=== PATIENT | female | born 1965 | race Caucasian/White ===

== ENCOUNTER 2016-04-19 09:39 | Emergency (ER) | payer OTHER ==
[~2016-04-19 09:39] MED LIST: /ESOM40CA PO; /HYDR10T PO; /LAMO20TA PO; ABIL5TAB; ALLE25CA OR; ALPR0.5T3 PO; ASEN5TA SL; ASPI325T10 PO; AUGM875T27 PO; BENA25CA2 PO; BENA25TA4 PO; DEPAKOT500 PO; FLECTOR1.3 TOP; GEOD40CA OR; IBUP400T OR; IBUP800T23 PO; IMIT100T OR; LAMI200T3 PO; METR500T10 PO; PAXIL40 PO; PERC5TAB6 PO; PROZ10CA7 PO; PROZ20CA; SAPH1SUB12 SL; TRAM50TA2 OR; TRAZ50TA2 PO; TRAZO50TA PO; TYLE500T53 OR; XANA0.5T PO; ZYPREXA PO; klonopin PO; saphris SL
--- NOTE | 2016-04-19 10:21 | EDDOCDS ---
Physician Documentation [facility] Name: Adela Polo Age: 50 yrs Sex: Female : 1965 Arrival Date: 04/19/2016 Time: 09:39 Bed Triage 1 Private MD: Margarette Palumbo Disposition: 04/19/16 10:03 Discharged to Home/Self Care. Impression: Dental caries. - Condition is Stable. - Discharge Instructions: Dental Pain. - Prescriptions for Clindamycin HCl 300 mg Oral Capsule - take 1 capsule by ORAL route every 6 hours; 40 capsule. - Medication Reconciliation, Local Pharmacy Hours form. - Follow up: Your, Dentist; When: Call to arrange an appointment; Reason: Further diagnostic work-up, Recheck today's complaints, Continuance of care. - Problem is chronic. - Symptoms are unchanged. Historical: - Allergies: Abilify (numbness); Floxin (Rash); hydroxyzine HCl; Risperdal (racing heart); Seroquel (racing heart); Trileptal (Rash); - Home Meds: 1. Lamictal 200 mg Oral tab 1 tab once daily 2. saphris 10 mg twice a day 3. Xanax 0.25 mg Oral tab 1 tab twice a day - PMHx: Borderline Personality Disorder; DJD; Schizo-Affective Disorder; - PSHx: Colon Resection; Tubal ligation; D & C; - Social history: Smoking status: Patient uses tobacco products, heavy tobacco smoker. No barriers to communication noted, The patient speaks fluent Chinese, Speaks appropriately for age. - Family history: Not pertinent. - : The pt / caregiver states he / she is not on anticoagulants. Home medication list is obtained from the patient. - Exposure Risk Screening:: None identified. 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 8 in. (172.72 cm); Pain 5/10; 09:41 Body Mass Index 44.70 (133.36 kg, 172.72 cm) sew Signatures: Kristopher Shepherd RN RN mlb1 Art Howard PA PA btw Kianna Dutton, RN RN hs1 MTDD
--- NOTE | 2016-04-19 10:21 | EDDOCDS ---
Nurse's Notes [facility] Name: Adela Polo Age: 50 yrs Sex: Female : 1965 Arrival Date: 04/19/2016 Time: 09:39 Bed Triage 1 Private MD: Margarette Palumbo Diagnosis: Dental caries Presentation: 04/19 09:47 Presenting complaint: Patient states: patient states infected teeth and couple of them hs1 hurting badly. Left side of jaw. Patient states cannot get into dentist for 1 month and is looking for antibiotics so that patient can get through. Adult Sepsis Screening: The patient does not have new or worsening altered mentation. Patient's respiratory rate is less than 22. Systolic blood pressure is greater than 100. Patient has a qSOFA score of 0- Negative Sepsis Screen. Suicide/Homicide risk assessment- the patient denies having any suicidal and/or homicidal ideations and does not present with any other emotional, behavioral or mental health complaints. Status: Patient is not a radiology equipment servicer or dependent. Transition of care: patient was not received from another setting of care. 09:47 Acuity: ASHKAN Level 5 hs1 09:47 Method Of Arrival: Walkin/Carried/Asstd hs1 Triage Assessment: 09:49 General: Appears in no apparent distress, Behavior is appropriate for age, cooperative. hs1 Pain: Location: mouth Pain currently is 5 out of 10 on a pain scale. HIV screening NA for this visit Offered previously. EENT: Reports pain in gums. 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 Lamictal 200 mg Oral tab 1 tab once daily 2. saphris 10 mg twice a day 3. Xanax 0.25 mg Oral tab 1 tab twice a day - PMHx: Borderline Personality Disorder; DJD; Schizo-Affective Disorder; - PSHx: Colon Resection; Tubal ligation; D & C; - Social history: Smoking status: Patient uses tobacco products, heavy tobacco smoker. No barriers to communication noted, The patient speaks fluent Irish, Speaks appropriately for age. - Family history: Not pertinent. - : The pt / caregiver states he / she is not on anticoagulants. Home medication list is obtained from the patient. - Exposure Risk Screening:: None identified. Screenin:50 Screening information is obtained from the patient. Fall risk: No risks identified. mlb1 Assistance ADL's: requires no assistance with activities of daily living. Abuse/DV Screen: The patient / caregiver reports he/she is: not in a situation that causes fear, pain or injury. Nutritional screening: No deficits noted. Advance Directives: Currently, there is no health care proxy. home support is adequate. Assessment: 10:14 General: Appears in no apparent distress, comfortable, Behavior is appropriate for age, mlb1 cooperative. Pain: Location: mouth Pain currently is 5 out of 10 on a pain scale. Neurological: No deficits noted. Respiratory: No deficits noted. Vital Signs: 09:41 BP 164 / 88; Pulse 84; Resp 16; Temp 98.2(T); Pulse Ox 98% on R/A; Weight 133.36 kg; sew Height 5 ft. 8 in. (172.72 cm); Pain 5/10; 09:41 Body Mass Index 44.70 (133.36 kg, 172.72 cm) [facility] [place]: 09:41 Log In Time: April 19, 2016 at 09:37. [facility] [place] Course: 09:41 Patient visited by Mine Joshi. sew 09:41 Margarette Palumbo is Private Physician. sew 09:41 Patient moved to Waiting sew 09:42 Patient visited by Mine Joshi. sew 09:42 Patient moved to Pre RCE sew 09:48 Triage Initiated hs1 09:49 Patient moved to Triage 1 hs1 09:53 Art Howard PA is PHCP. btw 09:54 Mine Solares MD is Attending Physician. btw 09:54 Patient visited by Art Howard PA. btw 10:02 YourJoyt is Referral Physician. btw 10:07 The patient / caregiver is instructed regarding the plan of care and ED course. mlb1 10:07 No IV's were initiated during this patient's visit. No procedures done that require mlb1 assistance. Order Results: There are currently no results for this order. Outcome: 10:03 Discharge ordered by Provider. btw 10:15 Discharge Assessment: Patient awake, alert and oriented x 3. No cognitive and/or mlb1 functional deficits noted. Patient verbalized understanding of disposition instructions. patient administered narcotics - no. The following High Risk Discharge criteria are identified: None. Discharged to home ambulatory. Condition: good. Discharge instructions given to patient, Instructed on discharge instructions, follow up and referral plans. medication usage, Demonstrated understanding of instructions, medications, Pt was receptive of discharge instructions/ teaching. Prescriptions given X 1. No special radiology studies were completed. Property sent home with patient. 10:20 Patient left the ED. mlb1 Signatures: Kristopher Shepherd, RN RN mlb1 Art Howard PA PA btw Kianna Dutton, RN RN hs1 Mine Joshi MTDD
--- NOTE | 2016-04-21 11:21 | EDDOCDS ---
Physician Documentation [facility] Name: Adela Polo Age: 50 yrs Sex: Female : 1965 Arrival Date: 04/19/2016 Time: 09:39 Bed Triage 1 Private MD: Margarette Palumbo Disposition: 04/19/16 10:03 Discharged to Home/Self Care. Impression: Dental caries. - Condition is Stable. - Discharge Instructions: Dental Pain. - Prescriptions for Clindamycin HCl 300 mg Oral Capsule - take 1 capsule by ORAL route every 6 hours; 40 capsule. - Medication Reconciliation, Local Pharmacy Hours form. - Follow up: Your, Dentist; When: Call to arrange an appointment; Reason: Further diagnostic work-up, Recheck today's complaints, Continuance of care. - Problem is chronic. - Symptoms are unchanged. Historical: - Allergies: Abilify (numbness); Floxin (Rash); hydroxyzine HCl; Risperdal (racing heart); Seroquel (racing heart); Trileptal (Rash); - Home Meds: 1. Lamictal 200 mg Oral tab 1 tab once daily 2. saphris 10 mg twice a day 3. Xanax 0.25 mg Oral tab 1 tab twice a day - PMHx: Borderline Personality Disorder; DJD; Schizo-Affective Disorder; - PSHx: Colon Resection; Tubal ligation; D & C; - Social history: Smoking status: Patient uses tobacco products, heavy tobacco smoker. No barriers to communication noted, The patient speaks fluent Haitian, Speaks appropriately for age. - Family history: Not pertinent. - : The pt / caregiver states he / she is not on anticoagulants. Home medication list is obtained from the patient. - Exposure Risk Screening:: None identified. 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 8 in. (172.72 cm); Pain 5/10; 09:41 Body Mass Index 44.70 (133.36 kg, 172.72 cm) sew MDM: 10:21 [facility] Payment Agreement was scanned into [employer] and attached to record. jp5 10:21 Financial registration complete. jp5 13:32 T-Sheet-- Draft Copy was scanned into [employer] and attached to record. gb Signatures: Roma Latwon, Reg Reg gb Kristopher Shepherd, RN RN mlb1 Art Howard PA PA btw Kianna Dutton RN RN hs1 Avis Dominguez jp5 The chart was reviewed and I authenticate all verbal orders and agree with the evaluation and treatment provided.Attachments: 10:21 [facility] Payment Agreement jp5 13:32 T-Sheet-- Draft Copy gb Chart Complete MTDD
--- NOTE | 2016-04-21 11:21 | EDDOCDS ---
Physician Documentation [facility] Name: Adela Polo Age: 50 yrs Sex: Female : 1965 Arrival Date: 04/19/2016 Time: 09:39 Bed Triage 1 Private MD: Margarette Palumbo Disposition: 04/19/16 10:03 Discharged to Home/Self Care. Impression: Dental caries. - Condition is Stable. - Discharge Instructions: Dental Pain. - Prescriptions for Clindamycin HCl 300 mg Oral Capsule - take 1 capsule by ORAL route every 6 hours; 40 capsule. - Medication Reconciliation, Local Pharmacy Hours form. - Follow up: Your, Dentist; When: Call to arrange an appointment; Reason: Further diagnostic work-up, Recheck today's complaints, Continuance of care. - Problem is chronic. - Symptoms are unchanged. Historical: - Allergies: Abilify (numbness); Floxin (Rash); hydroxyzine HCl; Risperdal (racing heart); Seroquel (racing heart); Trileptal (Rash); - Home Meds: 1. Lamictal 200 mg Oral tab 1 tab once daily 2. saphris 10 mg twice a day 3. Xanax 0.25 mg Oral tab 1 tab twice a day - PMHx: Borderline Personality Disorder; DJD; Schizo-Affective Disorder; - PSHx: Colon Resection; Tubal ligation; D & C; - Social history: Smoking status: Patient uses tobacco products, heavy tobacco smoker. No barriers to communication noted, The patient speaks fluent Mauritian, Speaks appropriately for age. - Family history: Not pertinent. - : The pt / caregiver states he / she is not on anticoagulants. Home medication list is obtained from the patient. - Exposure Risk Screening:: None identified. 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 8 in. (172.72 cm); Pain 5/10; 09:41 Body Mass Index 44.70 (133.36 kg, 172.72 cm) sew MDM: 10:21 [facility] Payment Agreement was scanned into [employer] and attached to record. jp5 10:21 Financial registration complete. jp5 13:32 T-Sheet-- Draft Copy was scanned into [employer] and attached to record. gb Signatures: Roma Lawton, Reg Reg gb Kristopher Shepherd, RN RN mlb1 Art Howard PA PA btw Kianna Dutton RN RN hs1 Avis Dominguez jp5 The chart was reviewed and I authenticate all verbal orders and agree with the evaluation and treatment provided.Attachments: 10:21 [facility] Payment Agreement jp5 13:32 T-Sheet-- Draft Copy gb Chart Complete MTDD
--- NOTE | 2016-04-21 11:21 | EDDOCDS ---
Nurse's Notes [facility] Name: Adela Polo Age: 50 yrs Sex: Female : 1965 Arrival Date: 04/19/2016 Time: 09:39 Bed Triage 1 Private MD: Margarette Palumbo Diagnosis: Dental caries Presentation: 04/19 09:47 Presenting complaint: Patient states: patient states infected teeth and couple of them hs1 hurting badly. Left side of jaw. Patient states cannot get into dentist for 1 month and is looking for antibiotics so that patient can get through. Adult Sepsis Screening: The patient does not have new or worsening altered mentation. Patient's respiratory rate is less than 22. Systolic blood pressure is greater than 100. Patient has a qSOFA score of 0- Negative Sepsis Screen. Suicide/Homicide risk assessment- the patient denies having any suicidal and/or homicidal ideations and does not present with any other emotional, behavioral or mental health complaints. 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 Transition of care: patient was not received from another setting of care. 09:47 Acuity: ASHKAN Level 5 hs1 09:47 Method Of Arrival: Walkin/Carried/Asstd hs1 Triage Assessment: 09:49 General: Appears in no apparent distress, Behavior is appropriate for age, cooperative. hs1 Pain: Location: mouth Pain currently is 5 out of 10 on a pain scale. HIV screening NA for this visit Offered previously. EENT: Reports pain in gums. 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 Lamictal 200 mg Oral tab 1 tab once daily 2. saphris 10 mg twice a day 3. Xanax 0.25 mg Oral tab 1 tab twice a day - PMHx: Borderline Personality Disorder; DJD; Schizo-Affective Disorder; - PSHx: Colon Resection; Tubal ligation; D & C; - Social history: Smoking status: Patient uses tobacco products, heavy tobacco smoker. No barriers to communication noted, The patient speaks fluent Georgian, Speaks appropriately for age. - Family history: Not pertinent. - : The pt / caregiver states he / she is not on anticoagulants. Home medication list is obtained from the patient. - Exposure Risk Screening:: None identified. Screenin:50 Screening information is obtained from the patient. Fall risk: No risks identified. mlb1 Assistance ADL's: requires no assistance with activities of daily living. Abuse/DV Screen: The patient / caregiver reports he/she is: not in a situation that causes fear, pain or injury. Nutritional screening: No deficits noted. Advance Directives: Currently, there is no health care proxy. home support is adequate. Assessment: 10:14 General: Appears in no apparent distress, comfortable, Behavior is appropriate for age, mlb1 cooperative. Pain: Location: mouth Pain currently is 5 out of 10 on a pain scale. Neurological: No deficits noted. Respiratory: No deficits noted. Vital Signs: 09:41 BP 164 / 88; Pulse 84; Resp 16; Temp 98.2(T); Pulse Ox 98% on R/A; Weight 133.36 kg; sew Height 5 ft. 8 in. (172.72 cm); Pain 5/10; 09:41 Body Mass Index 44.70 (133.36 kg, 172.72 cm) [facility] [place] Vitals: 09:41 Log In Time: April 19, 2016 at 09:37. [facility] [place] ED Course: 09:41 Patient visited by Mine Joshi. sew 09:41 Margarette Palumbo is Private Physician. sew 09:41 Patient moved to Waiting sew 09:42 Patient visited by Mine Joshi. sew 09:42 Patient moved to Pre RCE sew 09:48 Triage Initiated hs1 09:49 Patient moved to Triage 1 hs1 09:53 Art Howard PA is PHCP. btw 09:54 Mine Solares MD is Attending Physician. btw 09:54 Patient visited by Art Howard PA. btw 10:02 YourJoyt is Referral Physician. btw 10:07 The patient / caregiver is instructed regarding the plan of care and ED course. mlb1 10:07 No IV's were initiated during this patient's visit. No procedures done that require mlb1 assistance. 10:21 [facility] [place] was scanned into [employer] and attached to record. jp5 13:32 T-Sheet-- Draft Copy was scanned into [employer] and attached to record. Order Results: There are currently no results for this order. Outcome: 10:03 Discharge ordered by Provider. btw 10:15 Discharge Assessment: Patient awake, alert and oriented x 3. No cognitive and/or mlb1 functional deficits noted. Patient verbalized understanding of disposition instructions. patient administered narcotics - no. The following High Risk Discharge criteria are identified: None. Discharged to home ambulatory. Condition: good. Discharge instructions given to patient, Instructed on discharge instructions, follow up and referral plans. medication usage, Demonstrated understanding of instructions, medications, Pt was receptive of discharge instructions/ teaching. Prescriptions given X 1. No special radiology studies were completed. Property sent home with patient. 10:20 Patient left the ED. mlb1 Signatures: Roma Lawton, Reg Reg Kristopher Jacobs RN RN mlb1 Art Howard PA PA btw Kianna Dutton RN RN hs1 Mine Joshi Jennalee jp5 Chart Complete [facility]ITAL[facility]
== END 2016-04-19 10:20 | disposition home or self-care (01) ==
LOC: M ED 09:39
DX: K02.9 Dental caries, unspecified (principal); F60.3 Borderline personality disorder; M19.90 Unspecified osteoarthritis, unspecified site; F25.9 Schizoaffective disorder, unspecified; F17.210 Nicotine dependence, cigarettes, uncomplicated; Z79.899 Other long term (current) drug therapy; Z88.8 Allergy status to other drugs, medicaments and biological substances

== ENCOUNTER 2016-06-04 09:25 | Emergency (ER) | payer OTHER ==
[~2016-06-04] VITALS: Ht 172.7 cm; Wt 127.0 kg
--- NOTE | 2016-06-04 12:02 | REP ---
ABDOMINAL SERIES: Supine and erect views of the abdomen and pelvis demonstrate no free air and no evidence for bowel obstruction. No dilated small bowel loops are seen. There are metallic clips and phleboliths in the pelvis. There are mild degenerative changes of the spine and hips. An accompanying view of the chest demonstrates no acute infiltrate. The heart is normal in size and the mediastinal silhouette is unremarkable. IMPRESSION: Negative abdominal series. Signed by Bj Love MD 06/04/2016 04:15 P
[2016-06-04 12:22] LABS: ALBUMIN 3.6 GM/DL (3.2-5.2); ALBUMIN/GLOBULIN RATIO 0.92 (1.00-1.93); ALKALINE PHOSPHATASE 137 U/L (45-117); ALT/SGPT 21 U/L (12-78); AMYLASE 47 U/L (25-115); ANION GAP 7 MEQ/L (8-16); AST/SGOT 15 U/L (15-37); BILIRUBIN,DIRECT < 0.1 MG/DL (0.0-0.2); BILIRUBIN,TOTAL 0.3 MG/DL (0.2-1.0); BLOOD UREA NITROGEN 11 MG/DL (7-18); CALCIUM LEVEL 9.3 MG/DL (8.5-10.1); CARBON DIOXIDE LEVEL 28 MEQ/L (21-32); CHLORIDE LEVEL 104 MEQ/L (98-107); CREATININE FOR GFR 1.16 MG/DL (0.55-1.02); GLOMERULAR FILTRATION RATE 52.4 (>51); GLUCOSE, FASTING 100 MG/DL (70-105); SODIUM LEVEL 139 MEQ/L (136-145); TOTAL PROTEIN 7.5 GM/DL (6.4-8.2)
[2016-06-04 12:23] LABS: MEAN CORPUSCULAR HEMOGLOBIN 29.9 pg (27.0-33.0); MEAN CORPUSCULAR HGB CONC 32.9 g/dl (32.0-36.5); MEAN CORPUSCULAR VOLUME 90.9 fl (80.0-96.0); PLATELET COUNT, AUTOMATED 359 k/mm3 (150-450); RED CELL DISTRIBUTION WIDTH 13.7 % (11.5-14.5); WHITE BLOOD COUNT 9.3 K/mm3 (4.0-10.0)
[2016-06-04 12:24] LABS: BASO # 0.1 K/mm3 (0.0-0.2); BASO % 0.5 % (0.0-1.0); EOS # 0.2 K/mm3 (0.0-0.50); EOS % 2.2 % (0.0-3.0); LARGE UNSTAINED CELL # 0.3 K/mm3 (0.0-0.4); LARGE UNSTAINED CELL % 2.8 % (0.0-4.0); LYMPH # 2.1 K/mm3 (1.5-4.5); LYMPH % 22.1 % (24.0-44.0); MONO # 0.4 K/mm3 (0.0-0.8); MONO % 4.2 % (0.0-5.0); NEUTROPHILS # 6.3 K/mm3 (1.8-7.7); NEUTROPHILS % 68.1 % (36.0-66.0)
[2016-06-04 12:47] VITALS: BP 151/80
[2016-06-04] MEDS ORDERED: CYCL10TA PO (12:54)
[2016-06-04] MEDS ORDERED: MIRA3350 PO (12:54)
== END 2016-06-04 13:13 | disposition home or self-care (01) ==
LOC: M ED 11:11
DX: K59.00 Constipation, unspecified (principal); S39.012A Strain of muscle, fascia and tendon of lower back, initial encounter; X58.XXXA Exposure to other specified factors, initial encounter; Y92.89 Other specified places as the place of occurrence of the external cause; Y93.89 Activity, other specified; Y99.8 Other external cause status

== ENCOUNTER 2016-06-21 10:49 | Emergency (ER) | payer OTHER ==
[~2016-06-21] VITALS: Ht 172.7 cm; Wt 122.9 kg
[~2016-06-21 10:49] MED LIST changes: +CYCL10TA PO; +MIRA3350 PO
[2016-06-21] MEDS ORDERED: ESTR1TAB EC (11:07)
[2016-06-21] MEDS ORDERED: GASTROGRAFIN SOLUTION 30ML (Q9963) As Ordered ONE (12:39)
[2016-06-21] MEDS ORDERED: GASTROGRAFIN SOLUTION 30ML (Q9963) PO ONE ×2 (12:45→13:15)
[2016-06-21 12:46] LABS: CONTROL LINE UCG INT CTR LINE PRESENT
[2016-06-21 12:58] LABS: BASO % 0.5 % (0.0-1.0); EOS # 0.2 K/mm3 (0.0-0.50); EOS % 1.6 % (0.0-3.0); LARGE UNSTAINED CELL # 0.2 K/mm3 (0.0-0.4); LARGE UNSTAINED CELL % 1.4 % (0.0-4.0); LYMPH # 2.4 K/mm3 (1.5-4.5); LYMPH % 22.9 % (24.0-44.0); MEAN CORPUSCULAR HEMOGLOBIN 29.3 pg (27.0-33.0); MEAN CORPUSCULAR HGB CONC 32.4 g/dl (32.0-36.5); MEAN CORPUSCULAR VOLUME 90.3 fl (80.0-96.0); MONO # 0.4 K/mm3 (0.0-0.8); MONO % 4.2 % (0.0-5.0); NEUTROPHILS # 7.2 K/mm3 (1.8-7.7); NEUTROPHILS % 69.4 % (36.0-66.0); PLATELET COUNT, AUTOMATED 376 k/mm3 (150-450); RED CELL DISTRIBUTION WIDTH 13.5 % (11.5-14.5); WHITE BLOOD COUNT 10.4 K/mm3 (4.0-10.0)
[2016-06-21 13:25] LABS: ALBUMIN 3.6 GM/DL (3.2-5.2); ALKALINE PHOSPHATASE 134 U/L (45-117); ALT/SGPT 26 U/L (12-78); ANION GAP 8 MEQ/L (8-16); AST/SGOT 9 U/L (15-37); BILIRUBIN,DIRECT < 0.1 MG/DL (0.0-0.2); BILIRUBIN,TOTAL 0.2 MG/DL (0.2-1.0); BLOOD UREA NITROGEN 16 MG/DL (7-18); CALCIUM LEVEL 9.1 MG/DL (8.5-10.1); CARBON DIOXIDE LEVEL 25 MEQ/L (21-32); CHLORIDE LEVEL 106 MEQ/L (98-107); CREATININE FOR GFR 1.13 MG/DL (0.55-1.02); GLUCOSE, FASTING 103 MG/DL (70-105); POTASSIUM SERUM 4.2 MEQ/L (3.5-5.1); SODIUM LEVEL 139 MEQ/L (136-145); TOTAL PROTEIN 7.2 GM/DL (6.4-8.2)
[2016-06-21] MEDS ORDERED: ISOVUE-370 76% 100ML VIAL (Q9967) As Ordered ONE (14:29)
--- NOTE | 2016-06-21 15:11 | REP ---
Clinical: Acute generalized abdominal pain. Technique: Axial contrast enhanced images from the lung bases to the pubic symphysis using oral and 100 ml Isovue 370 intravenous contrast material with coronal and sagittal re-formations. Comparison: 06/03/2015. Findings: Liver, spleen, pancreas, gallbladder, bilateral adrenal glands and kidneys are normal / stable. 3.5 cm right renal cyst is again identified and unchanged. Eventration of the rectus sheath has become more pronounced than prior examination and there is a small actual fat containing herniation along the superior margin of the eventration measuring roughly 5 cm (image 69). The enteric system is without obstruction or acute inflammatory process. Scattered colonic diverticula noted without acute diverticulitis. Pelvis demonstrates partially collapsed normal bladder and age-appropriate uterus/adnexa. No ascites. No adenopathy. No free air. Abdominal aorta and vasculature without aneurysm. Skeletal structures demonstrate degenerative changes without focal osseous abnormality. Lung bases clear. Impression: 1. Worsening eventration along the anterior abdominal wall new small actual fat containing ventral hernia. 2. Colonic diverticula without acute diverticulitis. 3. Stable 3.5 cm right renal cyst. 4. No free fluid and no further acute intra-abdominal or pelvic pathology appreciated. Signed by Christophe Corbin MD 06/21/2016 03:02 P
[2016-06-21 15:58] VITALS: BP 120/67
--- NOTE | 2016-06-22 13:08 | ED PDOC ---
Post-Departure Follow-Up radiology report faxed to Mine Delacruz MD Jun 22, 2016 13:08
== END 2016-06-21 16:01 | disposition home or self-care (01) ==
LOC: M ED 13:07
DX: R10.9 Unspecified abdominal pain (principal); K43.9 Ventral hernia without obstruction or gangrene; N28.1 Cyst of kidney, acquired; F25.9 Schizoaffective disorder, unspecified; D25.9 Leiomyoma of uterus, unspecified; M43.00 Spondylolysis, site unspecified; Z88.8 Allergy status to other drugs, medicaments and biological substances; Z79.899 Other long term (current) drug therapy; M54.30 Sciatica, unspecified side; F31.9 Bipolar disorder, unspecified; F60.3 Borderline personality disorder
CPT/HCPCS: 36415; 74177; 80048; 80076; 81001; 83690; 84703; 85025; 87086; 87210; 87491; 87591; 99283; Q9963; Q9967

== ENCOUNTER 2016-07-16 13:40 | Emergency (ER) | payer OTHER ==
[~2016-07-16] VITALS: Ht 172.7 cm; Wt 126.6 kg
[~2016-07-16 13:40] MED LIST changes: +ESTR1TAB EC
[2016-07-16] MEDS ORDERED: DICL75TA PO (15:40)
[2016-07-16] MEDS ORDERED: CYCL10TA PO (15:41)
[2016-07-16 15:54] VITALS: BP 123/59
== END 2016-07-16 15:56 | disposition home or self-care (01) ==
LOC: M ED 15:48
DX: M54.31 Sciatica, right side (principal); F17.200 Nicotine dependence, unspecified, uncomplicated; Z90.49 Acquired absence of other specified parts of digestive tract; R51 Headache; R56.9 Unspecified convulsions; E78.00 Pure hypercholesterolemia, unspecified; I10 Essential (primary) hypertension; K57.92 Diverticulitis of intestine, part unspecified, without perforation or abscess without bleeding; N73.9 Female pelvic inflammatory disease, unspecified; F41.9 Anxiety disorder, unspecified; F31.9 Bipolar disorder, unspecified; F60.3 Borderline personality disorder; Z79.899 Other long term (current) drug therapy; Z88.8 Allergy status to other drugs, medicaments and biological substances; Z88.5 Allergy status to narcotic agent; Z88.1 Allergy status to other antibiotic agents

== ENCOUNTER 2016-07-28 21:16 | Emergency (ER) | payer OTHER ==
[~2016-07-28] VITALS: Ht 172.7 cm; Wt 126.6 kg
[~2016-07-28 21:16] MED LIST changes: +DICL75TA PO
[2016-07-28 22:58] VITALS: BP 159/71
== END 2016-07-28 22:59 | disposition home or self-care (01) ==
LOC: M ED 22:54
DX: S09.90XA Unspecified injury of head, initial encounter (principal); Y04.0XXA Assault by unarmed brawl or fight, initial encounter; Y93.89 Activity, other specified; Y99.8 Other external cause status; M54.30 Sciatica, unspecified side; M19.90 Unspecified osteoarthritis, unspecified site; M51.9 Unspecified thoracic, thoracolumbar and lumbosacral intervertebral disc disorder; Z88.8 Allergy status to other drugs, medicaments and biological substances; Z88.1 Allergy status to other antibiotic agents; Z79.899 Other long term (current) drug therapy; Y92.009 Unspecified place in unspecified non-institutional (private) residence as the place of occurrence of the external cause

== ENCOUNTER 2016-08-08 16:57 | Emergency (ER) | payer OTHER ==
[~2016-08-08] VITALS: Ht 172.7 cm; Wt 126.6 kg
[2016-08-08 16:58] VITALS: BP 137/70
[2016-08-08] MEDS ORDERED: CLIN1GEL22 (17:20)
[2016-08-08] MEDS ORDERED: GI COCKTAIL 50ML BTL(HYOSCYAMINE/MAALOX/LIDOCAINE VISCOUS)(1:3:1) PO ONE (17:45)
[2016-08-08] MEDS ORDERED: BENT20TA PO (17:51)
--- NOTE | 2016-08-08 19:33 | REP ---
ABDOMINAL SERIES: REASON: Pain. COMPARISON: 06/04/2016. FINDINGS: Supine and upright views of the abdomen show the intestinal gas pattern to be nonspecific. Gas and stool is seen throughout the colon within the rectosigmoid region. The organ silhouettes insofar as delineated appear unremarkable. No abdominal calcific densities are seen within the abdomen or pelvis. The accompanying single frontal view of the chest shows no free subdiaphragmatic air, cardiomegaly, infiltrates or effusions. The accompanying frontal view of the chest is unchanged from the prior frontal view of the chest of 06/04/2016 showing no acute disease. IMPRESSION: Nonspecific intestinal gas pattern. Signed by Esteban Roper DO 08/09/2016 03:36 P
== END 2016-08-08 20:02 | disposition home or self-care (01) ==
LOC: M ED 18:03
DX: R10.84 Generalized abdominal pain (principal); E66.9 Obesity, unspecified; F17.210 Nicotine dependence, cigarettes, uncomplicated; I10 Essential (primary) hypertension; E78.00 Pure hypercholesterolemia, unspecified; N73.9 Female pelvic inflammatory disease, unspecified; M51.9 Unspecified thoracic, thoracolumbar and lumbosacral intervertebral disc disorder; M54.30 Sciatica, unspecified side; F41.9 Anxiety disorder, unspecified; F31.9 Bipolar disorder, unspecified; F60.3 Borderline personality disorder; Z79.899 Other long term (current) drug therapy; Z88.8 Allergy status to other drugs, medicaments and biological substances; Z88.1 Allergy status to other antibiotic agents

== ENCOUNTER 2016-09-29 16:25 | Emergency (ER) | payer OTHER ==
[~2016-09-29] VITALS: Ht 172.7 cm; Wt 126.4 kg
[~2016-09-29 16:25] MED LIST changes: -AUGM875T27 PO; +AUGM875T28 PO; +BENT20TA PO; +CLIN1GEL22; +IBUP1TAB7 PO; -IBUP800T23 PO; +LAMI1TAB9 PO; -LAMI200T3 PO; +METR1TAB66 PO; -METR500T10 PO; +PERC5TAB12 PO; -PERC5TAB6 PO
[2016-09-29 16:28] VITALS: BP 157/72
[2016-09-29] MEDS ORDERED: IBUPROFEN 600 MG TAB PO ONE (16:45)
--- NOTE | 2016-09-29 17:23 | REP ---
Clinical: Trauma. Technique: AP, lateral, bilateral oblique views of the right ankle. Findings: Soft tissue swelling noted. No acute fracture dislocation. Joint spaces and ankle mortise are intact. Age-related degenerative changes noted. Impression: Soft tissue swelling and degenerative changes. No acute fracture or dislocation. Signed by Christophe Corbin MD 09/29/2016 05:14 P
== END 2016-09-29 17:29 | disposition home or self-care (01) ==
LOC: M ED 16:25
DX: S90.01XA Contusion of right ankle, initial encounter (principal); F99 Mental disorder, not otherwise specified; W22.8XXA Striking against or struck by other objects, initial encounter; Y92.018 Other place in single-family (private) house as the place of occurrence of the external cause; Y93.9 Activity, unspecified; Y99.9 Unspecified external cause status; Z79.899 Other long term (current) drug therapy; Z88.1 Allergy status to other antibiotic agents; Z88.8 Allergy status to other drugs, medicaments and biological substances

== ENCOUNTER 2017-01-06 13:10 | Emergency (ER) | payer OTHER ==
[~2017-01-06] VITALS: Ht 172.7 cm; Wt 130.9 kg
[2017-01-06] MEDS ORDERED: ONDANSETRON 4MG/2ML VIAL (J2405) IV ONE (13:30)
[2017-01-06] MEDS ORDERED: KETOROLAC 30 MG/ML VIAL (J1885) IV ONE (13:30)
[2017-01-06] MEDS ORDERED: NS 500 ML IV ONE (13:30)
[2017-01-06 13:59] LABS: BASO % 0.4 % (0.0-1.0); EOS # 0.2 10^3/uL (0.0-0.50); EOS % 1.9 % (0.0-3.0); IMMATURE GRANULOCYTE % 0.8 % (0-0); LYMPH # 2.9 10^3/uL (1.5-4.5); LYMPH % 27.7 % (24.0-44.0); MEAN CORPUSCULAR HGB CONC 33.4 g/dl (32.0-36.5); MEAN CORPUSCULAR VOLUME 89.7 fl (80.0-96.0); MONO # 0.5 10^3/uL (0.0-0.8); MONO % 5.1 % (0.0-5.0); NEUTROPHILS # 6.8 10^3/uL (1.8-7.7); NEUTROPHILS % 64.1 % (36.0-66.0); PLATELET COUNT, AUTOMATED 391 10^3/uL (150-450); RED CELL DISTRIBUTION WIDTH 14.6 % (11.5-14.5); WHITE BLOOD COUNT 10.6 10^3/uL (4.0-10.0)
[2017-01-06 14:05] LABS: ADD MANUAL DIFFER NO; DIFF SLIDE NUMBER 138
[2017-01-06 14:31] LABS: ALBUMIN 3.6 GM/DL (3.2-5.2); ALBUMIN/GLOBULIN RATIO 0.92 (1.00-1.93); ALKALINE PHOSPHATASE 134 U/L (45-117); ALT/SGPT 29 U/L (12-78); ANION GAP 7 MEQ/L (8-16); AST/SGOT 15 U/L (15-37); BILIRUBIN,DIRECT < 0.1 MG/DL (0.0-0.2); BILIRUBIN,TOTAL 0.3 MG/DL (0.2-1.0); BLOOD UREA NITROGEN 14 MG/DL (7-18); CALCIUM LEVEL 9.5 MG/DL (8.5-10.1); CARBON DIOXIDE LEVEL 25 MEQ/L (21-32); CHLORIDE LEVEL 106 MEQ/L (98-107); CREATININE FOR GFR 1.09 MG/DL (0.55-1.02); GLOMERULAR FILTRATION RATE 56.1 (>51); GLUCOSE, FASTING 97 MG/DL (70-105); POTASSIUM SERUM 4.1 MEQ/L (3.5-5.1); SODIUM LEVEL 138 MEQ/L (136-145); TOTAL PROTEIN 7.5 GM/DL (6.4-8.2)
--- NOTE | 2017-01-06 14:31 | REP ---
REASON: Abdominal pain. COMPARISON: 08/08/2016 FINDINGS: Supine and upright views of the abdomen show the intestinal gas pattern to be nonspecific. Gas and stool is seen throughout the colon within the rectosigmoid region. The organ silhouettes insofar as delineated appear unremarkable. No abdominal calcific densities are seen within the abdomen or pelvis. The accompanying frontal view of the chest is unchanged from the prior exam showing no acute disease. IMPRESSION: Nonspecific intestinal gas pattern. Signed by Esteban Roper DO 01/06/2017 03:32 P
[2017-01-06] MEDS ORDERED: CITRSOL8 PO (14:37)
[2017-01-06] MEDS ORDERED: MIRA3350 PO (14:37)
[2017-01-06 14:41] VITALS: BP 136/65
== END 2017-01-06 14:47 | disposition home or self-care (01) ==
LOC: M ED 13:10
DX: K59.00 Constipation, unspecified (principal); R10.84 Generalized abdominal pain; K58.9 Irritable bowel syndrome, unspecified; R51 Headache; R56.9 Unspecified convulsions; E78.00 Pure hypercholesterolemia, unspecified; I10 Essential (primary) hypertension; K57.90 Diverticulosis of intestine, part unspecified, without perforation or abscess without bleeding; Z87.440 Personal history of urinary (tract) infections; M54.30 Sciatica, unspecified side; M51.9 Unspecified thoracic, thoracolumbar and lumbosacral intervertebral disc disorder; F41.9 Anxiety disorder, unspecified; F31.9 Bipolar disorder, unspecified; F60.3 Borderline personality disorder; N73.9 Female pelvic inflammatory disease, unspecified; Z79.899 Other long term (current) drug therapy; Z88.8 Allergy status to other drugs, medicaments and biological substances
CPT/HCPCS: 74022; 80048; 80076; 81001; 83690; 85025; 96374; 96375; 99283; J1885; J2405

== ENCOUNTER 2017-04-29 12:48 | Emergency (ER) | payer OTHER ==
[2017-04-29 14:18] LABS: HEMATOCRIT 50.8 % (36.0-47.0); HEMOGLOBIN 16.6 g/dl (12.0-16.0); MEAN CORPUSCULAR HEMOGLOBIN 29.6 pg (27.0-33.0); MEAN CORPUSCULAR HGB CONC 32.7 g/dl (32.0-36.5); MEAN CORPUSCULAR VOLUME 90.7 fl (80.0-96.0); PLATELET COUNT, AUTOMATED 461 10^3/uL (150-450); RED CELL DISTRIBUTION WIDTH 14.8 % (11.5-14.5); WHITE BLOOD COUNT 12.7 10^3/uL (4.0-10.0)
[2017-04-29 14:54] LABS: ALBUMIN/GLOBULIN RATIO 1.11 (1.00-1.93); ALKALINE PHOSPHATASE 148 U/L (45-117); ALT/SGPT 24 U/L (12-78); ANION GAP 8 MEQ/L (8-16); AST/SGOT 19 U/L (7-37); BILIRUBIN,DIRECT < 0.1 MG/DL (0.0-0.2); BILIRUBIN,TOTAL 0.3 MG/DL (0.2-1.0); BLOOD UREA NITROGEN 10 MG/DL (7-18); CALCIUM LEVEL 9.7 MG/DL (8.5-10.1); CARBON DIOXIDE LEVEL 28 MEQ/L (21-32); CHLORIDE LEVEL 103 MEQ/L (98-107); CREATININE FOR GFR 1.14 MG/DL (0.55-1.30); GLOMERULAR FILTRATION RATE 53.3 (>51); GLUCOSE, FASTING 89 MG/DL (70-100); POTASSIUM SERUM 4.3 MEQ/L (3.5-5.1); SALICYLATE LEVEL 3.7 MG/DL (5.0-30.0); SODIUM LEVEL 139 MEQ/L (136-145); TOTAL PROTEIN 7.6 GM/DL (6.4-8.2)
[2017-04-29 15:04] LABS: ACETAMINOPHEN LEVEL < 2.0 UG/ML (10.0-30.0); ETHYL ALCOHOL (ETHANOL) < 0.003 % (0.000-0.010)
[2017-04-29 15:08] LABS: AMPHETAMINES LEVEL URINE NEGATIVE (NEGATIVE); BARBITURATES URINE NEGATIVE (NEGATIVE); BENZODIAZEPINES URINE POSITIVE (NEGATIVE); CANNABINOIDS URINE NEGATIVE (NEGATIVE); COCAINE METABOLITE URINE NEGATIVE (NEGATIVE); METHADONE URINE NEGATIVE (NEGATIVE); OPIATES URINE NEGATIVE (NEGATIVE); PHENCYCLIDINE URINE NEGATIVE (NEGATIVE)
== END 2017-04-29 17:13 | disposition home or self-care (01) ==
LOC: M ED 12:48
DX: F31.9 Bipolar disorder, unspecified (principal); R51 Headache; K59.04 Chronic idiopathic constipation; F17.210 Nicotine dependence, cigarettes, uncomplicated; Z88.8 Allergy status to other drugs, medicaments and biological substances; Z88.1 Allergy status to other antibiotic agents; Z79.899 Other long term (current) drug therapy
CPT/HCPCS: 80320

== ENCOUNTER 2017-05-17 09:07 | Emergency (ER) | payer OTHER ==
[2017-05-17 10:08] LABS: BASO # 0.1 10^3/uL (0.0-0.2); BASO % 0.5 % (0.0-1.0); EOS # 0.1 10^3/uL (0.0-0.50); EOS % 1.3 % (0.0-3.0); HEMOGLOBIN 15.5 g/dl (12.0-16.0); LYMPH # 2.5 10^3/uL (1.5-4.5); LYMPH % 23.7 % (24.0-44.0); MEAN CORPUSCULAR HEMOGLOBIN 29.9 pg (27.0-33.0); MEAN CORPUSCULAR VOLUME 90.7 fl (80.0-96.0); MONO # 0.7 10^3/uL (0.0-0.8); MONO % 6.1 % (0.0-5.0); NEUTROPHILS # 7.2 10^3/uL (1.8-7.7); NEUTROPHILS % 67.4 % (36.0-66.0); PLATELET COUNT, AUTOMATED 381 10^3/uL (150-450); RED BLOOD COUNT 5.18 10^6/uL (4.00-5.40); RED CELL DISTRIBUTION WIDTH 14.6 % (11.5-14.5); WHITE BLOOD COUNT 10.7 10^3/uL (4.0-10.0)
[2017-05-17 10:32] LABS: ANION GAP 9 MEQ/L (8-16); BLOOD UREA NITROGEN 11 MG/DL (7-18); CALCIUM LEVEL 9.2 MG/DL (8.5-10.1); CARBON DIOXIDE LEVEL 23 MEQ/L (21-32); CHLORIDE LEVEL 108 MEQ/L (98-107); CREATININE FOR GFR 0.96 MG/DL (0.55-1.30); GLOMERULAR FILTRATION RATE > 60.0 (>51); GLUCOSE, FASTING 102 MG/DL (70-100); MAGNESIUM LEVEL 2.3 MG/DL (1.8-2.4); POTASSIUM SERUM 4.8 MEQ/L (3.5-5.1); SODIUM LEVEL 140 MEQ/L (136-145)
[2017-05-17 10:56] LABS: VITAMIN B12 LEVEL 695 PG/ML (247-911)
[2017-05-17 11:42] LABS: TOTAL 25(OH) VITAMIN D 7.8 NG/ML (30.0-100.0)
== END 2017-05-17 12:32 | disposition home or self-care (01) ==
LOC: M ED 09:07
DX: E55.9 Vitamin D deficiency, unspecified (principal); R20.9 Unspecified disturbances of skin sensation; I10 Essential (primary) hypertension; E78.00 Pure hypercholesterolemia, unspecified; K21.9 Gastro-esophageal reflux disease without esophagitis; K44.9 Diaphragmatic hernia without obstruction or gangrene; F25.9 Schizoaffective disorder, unspecified; F31.9 Bipolar disorder, unspecified; F60.3 Borderline personality disorder; F41.9 Anxiety disorder, unspecified; Z88.8 Allergy status to other drugs, medicaments and biological substances; Z88.1 Allergy status to other antibiotic agents; Z79.899 Other long term (current) drug therapy
CPT/HCPCS: 70450

== ENCOUNTER 2017-08-23 11:21 | Inpatient (IN) | payer MEDICAID, OTHER ==
[2017-08-23 11:53] LABS: HEMATOCRIT 46.9 % (36.0-47.0); HEMOGLOBIN 15.7 g/dl (12.0-15.5); MEAN CORPUSCULAR HEMOGLOBIN 29.8 pg (27.0-33.0); MEAN CORPUSCULAR HGB CONC 33.5 g/dl (32.0-36.5); MEAN CORPUSCULAR VOLUME 89.2 fl (80.0-96.0); PLATELET COUNT, AUTOMATED 416 10^3/uL (150-450); RED BLOOD COUNT 5.26 10^6/uL (4.00-5.40); RED CELL DISTRIBUTION WIDTH 14.6 % (11.5-14.5); WHITE BLOOD COUNT 12.7 10^3/uL (4.0-10.0)
[2017-08-23 12:41] LABS: ALBUMIN 3.8 GM/DL (3.2-5.2); ALBUMIN/GLOBULIN RATIO 1.03 (1.00-1.93); ALKALINE PHOSPHATASE 137 U/L (45-117); ALT/SGPT 29 U/L (12-78); ANION GAP 11 MEQ/L (8-16); AST/SGOT 17 U/L (7-37); BILIRUBIN,DIRECT < 0.1 MG/DL (0.0-0.2); BILIRUBIN,TOTAL 0.3 MG/DL (0.2-1.0); BLOOD UREA NITROGEN 9 MG/DL (7-18); CALCIUM LEVEL 9.5 MG/DL (8.5-10.1); CARBON DIOXIDE LEVEL 22 MEQ/L (21-32); CHLORIDE LEVEL 107 MEQ/L (98-107); CREATININE FOR GFR 1.02 MG/DL (0.55-1.30); GLOMERULAR FILTRATION RATE > 60.0 (>51); GLUCOSE, FASTING 109 MG/DL (70-100); POTASSIUM SERUM 4.5 MEQ/L (3.5-5.1); SALICYLATE LEVEL 4.2 MG/DL (5.0-30.0); SODIUM LEVEL 140 MEQ/L (136-145); TOTAL PROTEIN 7.5 GM/DL (6.4-8.2)
[2017-08-23 12:57] LABS: ACETAMINOPHEN LEVEL < 2.0 UG/ML (10.0-30.0); ETHYL ALCOHOL (ETHANOL) < 0.003 % (0.000-0.010)
[2017-08-23] MEDS ORDERED: ISOVUE-370 76% 100ML VIAL (Q9967) As Ordered (15:03)
[2017-08-23 15:05] LABS: AMPHETAMINES LEVEL URINE NEGATIVE (NEGATIVE); BARBITURATES URINE NEGATIVE (NEGATIVE); BENZODIAZEPINES URINE POSITIVE (NEGATIVE); CANNABINOIDS URINE NEGATIVE (NEGATIVE); COCAINE METABOLITE URINE NEGATIVE (NEGATIVE); METHADONE URINE NEGATIVE (NEGATIVE); OPIATES URINE NEGATIVE (NEGATIVE); PHENCYCLIDINE URINE NEGATIVE (NEGATIVE)
[2017-08-23] MEDS ORDERED: PERCOCET 5MG/325MG TAB PO (16:30)
[2017-08-23] MEDS ORDERED: ACETAMINOPHEN TAB 650MG DOSE (2X325MG) PO (18:15)
[2017-08-23] MEDS ORDERED: MOM 30ML SUSPENSION UDC PO (18:15)
[2017-08-23] MEDS ORDERED: traZODone 50 MG TAB PO (18:15)
[2017-08-24] MEDS: NICOTINE 21MG/24HR 1 EA TRANSDERMAL TD (07:53)
[2017-08-24] MEDS ORDERED: LORazepam 2 MG TAB PO (11:30)
[2017-08-24] MEDS ORDERED: diphenhydrAMINE INJ 50MG/ML VIAL (J1200) IM (12:15)
[2017-08-24] MEDS: MULTIVITAMINS/MINERALS THERAP 1 TAB PO (12:23)
[2017-08-24] MEDS: HALOPERIDOL 5 MG TAB PO ×2 (12:23→21:09)
[2017-08-24] MEDS: FOLIC ACID 1 MG TAB PO (12:23)
[2017-08-24] MEDS: lamoTRIgine 100MG TAB PO (12:23)
[2017-08-24] MEDS: THIAMINE 100 MG TAB PO ×2 (12:23→21:09)
[2017-08-24] MEDS: diphenhydrAMINE 25 MG CAP PO (12:36)
[2017-08-24] MEDS: NORTRIPTYLINE 25 MG CAP PO (21:09)
[2017-08-25] MEDS: NICOTINE 21MG/24HR 1 EA TRANSDERMAL TD (08:01)
[2017-08-25] MEDS: MULTIVITAMINS/MINERALS THERAP 1 TAB PO (08:02)
[2017-08-25] MEDS: FOLIC ACID 1 MG TAB PO (08:02)
[2017-08-25] MEDS: lamoTRIgine 100MG TAB PO (08:02)
[2017-08-25] MEDS: THIAMINE 100 MG TAB PO ×2 (08:02→20:03)
[2017-08-25] MEDS: HALOPERIDOL 5 MG TAB PO ×2 (08:02→20:03)
[2017-08-25] MEDS: PROPRANOLOL 10 MG TAB PO ×3 (10:31→20:04)
[2017-08-25] MEDS: NORTRIPTYLINE 25 MG CAP PO (20:03)
[2017-08-26] MEDS: PROPRANOLOL 10 MG TAB PO ×3 (08:15→20:01)
[2017-08-26] MEDS: NICOTINE 21MG/24HR 1 EA TRANSDERMAL TD (08:15)
[2017-08-26] MEDS: MULTIVITAMINS/MINERALS THERAP 1 TAB PO (08:16)
[2017-08-26] MEDS: THIAMINE 100 MG TAB PO ×2 (08:16→20:01)
[2017-08-26] MEDS: HALOPERIDOL 5 MG TAB PO ×2 (08:16→20:01)
[2017-08-26] MEDS: FOLIC ACID 1 MG TAB PO (08:16)
[2017-08-26] MEDS: lamoTRIgine 100MG TAB PO (08:16)
[2017-08-26] MEDS: MAALOX 30 ML SUSP *UDC PO ×2 (14:40→20:49)
[2017-08-26] MEDS: NORTRIPTYLINE 25 MG CAP PO (20:01)
[2017-08-27] MEDS: HALOPERIDOL 5 MG TAB PO (08:14)
[2017-08-27] MEDS: lamoTRIgine 100MG TAB PO (08:14)
[2017-08-27] MEDS: PROPRANOLOL 10 MG TAB PO (08:15)
[2017-08-27] MEDS: NICOTINE 21MG/24HR 1 EA TRANSDERMAL TD (08:15)
[2017-08-27] MEDS: FOLIC ACID 1 MG TAB PO (08:15)
[2017-08-27] MEDS: MULTIVITAMINS/MINERALS THERAP 1 TAB PO (08:15)
== END 2017-08-27 12:35 | disposition home or self-care (01) | DRG 885 ==
LOC: M ED 11:21 → M ED INP 18:11 → M PSY 20:27
DX: F33.1 Major depressive disorder, recurrent, moderate (principal); R45.851 Suicidal ideations; F41.1 Generalized anxiety disorder; F43.10 Post-traumatic stress disorder, unspecified; Z79.899 Other long term (current) drug therapy; Z88.8 Allergy status to other drugs, medicaments and biological substances; F17.200 Nicotine dependence, unspecified, uncomplicated; M54.5 Low back pain; M54.2 Cervicalgia

== ENCOUNTER 2017-10-16 13:19 | Emergency (ER) | payer OTHER, MEDICAID ==
[2017-10-16 14:52] LABS: BILIRUBIN, URINE MANUAL NEGATIVE (NEGATIVE); BLOOD URINE MANUAL RFX POSITIVE (NEGATIVE); GLUCOSE, URINE (UA) MANUAL NEGATIVE (NEGATIVE); KETONE, URINE MANUAL NEGATIVE (NEGATIVE); MICROSCOPIC INDICATED? RFX YES (NO); NITRITE, URINE MANUAL RFX NEGATIVE (NEGATIVE); PROTEIN, URINE MANUAL REFLEX NEGATIVE (NEGATIVE); SP GRAVITY,URINE MANUAL REFLEX 1.015 (1.002-1.035); UROBILINOGEN, URINE MANUAL NORMAL (NORMAL)
[2017-10-16 15:03] LABS: BACTERIA, URINE LARGE AMOUNT; HYALINE CAST, URINE NONE SEEN /lpf (0-1); MICROSCOPIC EXAM PERFORMED; YEAST, URINE MOD AMOUNT
[2017-10-16 15:04] LABS: SQUAMOUS EPITHELIAL CELL URINE MOD AMOUNT /hpf (SMALL AMT)
[2017-10-16] MEDS: ONDANSETRON 4MG/2ML VIAL (J2405) IV (15:18)
[2017-10-16] MEDS: NS 1,000 ML IV (15:18)
[2017-10-16 15:24] LABS: BASO # 0.1 10^3/uL (0.0-0.2); BASO % 0.5 % (0.0-1.0); EOS # 0.2 10^3/uL (0.0-0.50); EOS % 1.7 % (0.0-3.0); HEMATOCRIT 47.9 % (36.0-47.0); HEMOGLOBIN 15.8 g/dl (12.0-15.5); IMMATURE GRANULOCYTE % 0.8 % (0-3.0); LYMPH # 2.7 10^3/uL (1.5-4.5); LYMPH % 23.3 % (24.0-44.0); MEAN CORPUSCULAR HEMOGLOBIN 29.8 pg (27.0-33.0); MEAN CORPUSCULAR VOLUME 90.4 fl (80.0-96.0); MONO # 0.6 10^3/uL (0.0-0.8); MONO % 4.9 % (0.0-5.0); NEUTROPHILS # 7.9 10^3/uL (1.8-7.7); NEUTROPHILS % 68.8 % (36.0-66.0); PLATELET COUNT, AUTOMATED 379 10^3/uL (150-450); RED CELL DISTRIBUTION WIDTH 14.1 % (11.5-14.5); WHITE BLOOD COUNT 11.5 10^3/uL (4.0-10.0)
[2017-10-16 15:59] LABS: ALBUMIN 3.6 GM/DL (3.2-5.2); ALBUMIN/GLOBULIN RATIO 0.97 (1.00-1.93); ALKALINE PHOSPHATASE 152 U/L (45-117); ALT/SGPT 34 U/L (12-78); ANION GAP 9 MEQ/L (8-16); AST/SGOT 19 U/L (7-37); BILIRUBIN,TOTAL 0.3 MG/DL (0.2-1.0); BLOOD UREA NITROGEN 10 MG/DL (7-18); CALCIUM LEVEL 9.2 MG/DL (8.5-10.1); CARBON DIOXIDE LEVEL 24 MEQ/L (21-32); CHLORIDE LEVEL 110 MEQ/L (98-107); CREATININE FOR GFR 1.11 MG/DL (0.55-1.30); GLUCOSE, FASTING 95 MG/DL (70-100); LIPASE 118 U/L (73-393); POTASSIUM SERUM 4.6 MEQ/L (3.5-5.1); SODIUM LEVEL 143 MEQ/L (136-145); TOTAL PROTEIN 7.3 GM/DL (6.4-8.2)
[2017-10-16 17:49] LABS: CHLAMYDIA DNA AMPLIFICATION NEGATIVE (NEGATIVE); GC DNA AMPLIFICATION NEGATIVE (NEGATIVE)
== END 2017-10-16 17:49 | disposition home or self-care (01) ==
LOC: M ED 13:19
DX: N39.0 Urinary tract infection, site not specified (principal); N93.9 Abnormal uterine and vaginal bleeding, unspecified; K43.9 Ventral hernia without obstruction or gangrene; N28.1 Cyst of kidney, acquired; N83.292 Other ovarian cyst, left side; I10 Essential (primary) hypertension; E78.5 Hyperlipidemia, unspecified; K21.9 Gastro-esophageal reflux disease without esophagitis; K57.92 Diverticulitis of intestine, part unspecified, without perforation or abscess without bleeding; G43.909 Migraine, unspecified, not intractable, without status migrainosus; M54.9 Dorsalgia, unspecified; Z79.899 Other long term (current) drug therapy; Z88.8 Allergy status to other drugs, medicaments and biological substances
CPT/HCPCS: J2405

== ENCOUNTER 2017-10-26 10:39 | Emergency (ER) | payer OTHER ==
[2017-10-26 11:42] LABS: BASO # 0.1 10^3/uL (0.0-0.2); BASO % 0.5 % (0.0-1.0); EOS # 0.2 10^3/uL (0.0-0.50); EOS % 1.7 % (0.0-3.0); HEMATOCRIT 46.1 % (36.0-47.0); HEMOGLOBIN 15.3 g/dl (12.0-15.5); LYMPH # 2.7 10^3/uL (1.5-4.5); LYMPH % 23.1 % (24.0-44.0); MEAN CORPUSCULAR HGB CONC 33.2 g/dl (32.0-36.5); MEAN CORPUSCULAR VOLUME 90.4 fl (80.0-96.0); MONO # 0.7 10^3/uL (0.0-0.8); MONO % 6.1 % (0.0-5.0); NEUTROPHILS % 67.6 % (36.0-66.0); PLATELET COUNT, AUTOMATED 390 10^3/uL (150-450); RED CELL DISTRIBUTION WIDTH 14.2 % (11.5-14.5); WHITE BLOOD COUNT 11.8 10^3/uL (4.0-10.0)
[2017-10-26 11:51] LABS: APPEARANCE, URINE CLEAR (CLEAR); BACTERIA, URINE AUTO NEGATIVE (NEGATIVE); BILIRUBIN, URINE AUTO NEGATIVE (NEGATIVE); BLOOD, URINE BLOOD NEGATIVE (NEGATIVE); COLOR, URINE YELLOW (YELLOW); GLUCOSE, URINE (UA) AUTO NEGATIVE (NEGATIVE); KETONE, URINE AUTO NEGATIVE (NEGATIVE); LEUKOCYTE ESTERASE, URINE AUTO NEGATIVE (NEGATIVE); NITRITE, URINE AUTO NEGATIVE (NEGATIVE); PROTEIN, URINE AUTO NEGATIVE (NEGATIVE); RBC, URINE AUTO 0 /HPF (0-3); SPECIFIC GRAVITY URINE AUTO 1.006 (1.002-1.035); SQUAMOUS EPITHELIAL CELL UR AU 3 /HPF (0-6); UROBILINOGEN, URINE AUTO 0.2 mg/dL (0.0-2.0); WBC, URINE AUTO 0 /HPF (0-3)
[2017-10-26 12:11] LABS: ANION GAP 8 MEQ/L (8-16); BLOOD UREA NITROGEN 8 MG/DL (7-18); CALCIUM LEVEL 9.5 MG/DL (8.5-10.1); CARBON DIOXIDE LEVEL 23 MEQ/L (21-32); CHLORIDE LEVEL 110 MEQ/L (98-107); CPK CREATINE PHOSPHOKINASE 84 U/L (26-192); CREATININE FOR GFR 1.08 MG/DL (0.55-1.30); GLOMERULAR FILTRATION RATE 56.7 (>51); GLUCOSE, FASTING 104 MG/DL (70-100); POTASSIUM SERUM 4.6 MEQ/L (3.5-5.1); SODIUM LEVEL 141 MEQ/L (136-145); TROPONIN I < 0.02 NG/ML (< 0.10)
[2017-10-26 12:15] LABS: CK-MB VALUE MASS 1.1 NG/ML (<3.6)
[2017-10-27 10:51] LABS: BEDSIDE GLUCOSE 108 MG/DL (70-105)
[2017-10-28 06:47] LABS: VITAMIN B12 LEVEL 314 PG/ML (247-911)
== END 2017-10-26 12:40 | disposition home or self-care (01) ==
LOC: M ED 10:39
DX: M25.512 Pain in left shoulder (principal); K42.9 Umbilical hernia without obstruction or gangrene; I10 Essential (primary) hypertension; F41.9 Anxiety disorder, unspecified; F31.9 Bipolar disorder, unspecified; F25.9 Schizoaffective disorder, unspecified; M51.9 Unspecified thoracic, thoracolumbar and lumbosacral intervertebral disc disorder; Z79.899 Other long term (current) drug therapy; Z88.1 Allergy status to other antibiotic agents; Z88.8 Allergy status to other drugs, medicaments and biological substances
CPT/HCPCS: 93005

== ENCOUNTER 2018-03-09 09:13 | Emergency (ER) | payer OTHER ==
[2018-03-09 09:55] LABS: BASO # 0.1 10^3/uL (0.0-0.2); BASO % 0.5 % (0.0-1.0); EOS # 0.1 10^3/uL (0.0-0.50); EOS % 1.4 % (0.0-3.0); HEMATOCRIT 46.1 % (36.0-47.0); HEMOGLOBIN 15.5 g/dl (12.0-15.5); IMMATURE GRANULOCYTE % 0.9 % (0-3.0); LYMPH # 2.6 10^3/uL (1.5-4.5); LYMPH % 25.5 % (24.0-44.0); MEAN CORPUSCULAR HEMOGLOBIN 30.2 pg (27.0-33.0); MEAN CORPUSCULAR HGB CONC 33.6 g/dl (32.0-36.5); MEAN CORPUSCULAR VOLUME 89.7 fl (80.0-96.0); MONO # 0.7 10^3/uL (0.0-0.8); MONO % 6.6 % (0.0-5.0); NEUTROPHILS # 6.6 10^3/uL (1.8-7.7); NEUTROPHILS % 65.1 % (36.0-66.0); PLATELET COUNT, AUTOMATED 401 10^3/uL (150-450); RED BLOOD COUNT 5.14 10^6/uL (4.00-5.40); WHITE BLOOD COUNT 10.1 10^3/uL (4.0-10.0)
[2018-03-09 10:07] LABS: INR 0.98; PROTHROMBIN TIME 13.1 SECONDS (12.1-14.4)
[2018-03-09 10:30] LABS: ALBUMIN 3.5 GM/DL (3.2-5.2); ALKALINE PHOSPHATASE 131 U/L (45-117); ALT/SGPT 27 U/L (12-78); ANION GAP 8 MEQ/L (8-16); AST/SGOT 21 U/L (7-37); BILIRUBIN,DIRECT < 0.1 MG/DL (0.0-0.2); BILIRUBIN,TOTAL 0.3 MG/DL (0.2-1.0); BLOOD UREA NITROGEN 8 MG/DL (7-18); CALCIUM LEVEL 9.5 MG/DL (8.5-10.1); CARBON DIOXIDE LEVEL 24 MEQ/L (21-32); CHLORIDE LEVEL 106 MEQ/L (98-107); CPK CREATINE PHOSPHOKINASE 82 U/L (26-192); CREATININE FOR GFR 1.11 MG/DL (0.55-1.30); GLOMERULAR FILTRATION RATE 54.7 (>51); GLUCOSE, FASTING 108 MG/DL (70-100); LIPASE 127 U/L (73-393); MB/CK RELATIVE INDEX 2.44 (< OR =4); NT-PRO BNP 123 PG/ML (<125); SODIUM LEVEL 138 MEQ/L (136-145); TOTAL PROTEIN 7.4 GM/DL (6.4-8.2); TROPONIN I 0.21 NG/ML (< 0.10)
[2018-03-09] MEDS: ASPIRIN 325 MG TAB PO (10:41)
[2018-03-09] MEDS: ASPIRIN 81 MG CHEW TABLET PO (10:51)
[2018-03-09] MEDS ORDERED: ISOVUE-370 76% 100ML VIAL (Q9967) As Ordered (10:54)
[2018-03-09] MEDS: NITROGLYCERIN 0.4 MG SUBL TABLET SL ×2 (11:01→11:06)
[2018-03-09] MEDS ORDERED: MORPHINE 4 MG/ML 1ML VIAL/SYRINGE (J2270) As Ordered (11:10)
[2018-03-09] MEDS: MORPHINE 4 MG/ML 1ML VIAL/SYRINGE (J2270) IV ×2 (11:11→11:20)
[2018-03-09] MEDS: NS 1,000 ML IV (11:15)
[2018-03-09] MEDS: ONDANSETRON 4MG/2ML VIAL (J2405) IV (11:20)
[2018-03-09] MEDS: TENECTEPLASE 50 MG KIT (TNKase)(J3101) IV (11:21)
[2018-03-09] MEDS: HEPARIN SOD (PORCINE) 5000 UNITS/ML VIAL IV (11:23)
[2018-03-09] MEDS: CLOPIDOGREL 300 MG TAB (PLAVIX) PO (11:23)
[2018-03-09] MEDS: HEPARIN DRIP 25,000 UNITS in APPROPRIATE DILUENT 1 EA IV (11:23)
[2018-03-09] MEDS: LORazepam 2 MG/ML VIAL (J2060) IV (11:31)
[2018-03-09 11:35] LABS: PARTIAL THROMBOPLASTIN TIME 27.9 SECONDS (25.4-37.6)
[2018-03-09] MEDS ORDERED: METAL LOCK LOOP XX (12:29)
== END 2018-03-09 11:47 | disposition short-term general hospital (02) ==
LOC: M ED 09:13
DX: I21.3 ST elevation (STEMI) myocardial infarction of unspecified site (principal); I24.9 Acute ischemic heart disease, unspecified; I10 Essential (primary) hypertension; K21.9 Gastro-esophageal reflux disease without esophagitis; E78.9 Disorder of lipoprotein metabolism, unspecified; Z79.899 Other long term (current) drug therapy; Z88.1 Allergy status to other antibiotic agents; Z88.8 Allergy status to other drugs, medicaments and biological substances; F17.210 Nicotine dependence, cigarettes, uncomplicated
CPT/HCPCS: J2270

== ENCOUNTER 2018-03-12 11:00 | Emergency (ER) | payer OTHER ==
[2018-03-12 11:42] LABS: BASO # 0.1 10^3/uL (0.0-0.2); BASO % 0.4 % (0.0-1.0); EOS # 0.4 10^3/uL (0.0-0.50); EOS % 3.5 % (0.0-3.0); HEMATOCRIT 43.5 % (36.0-47.0); HEMOGLOBIN 14.4 g/dl (12.0-15.5); IMMATURE GRANULOCYTE % 0.8 % (0-3.0); LYMPH % 26.6 % (24.0-44.0); MEAN CORPUSCULAR HEMOGLOBIN 30.5 pg (27.0-33.0); MEAN CORPUSCULAR HGB CONC 33.1 g/dl (32.0-36.5); MEAN CORPUSCULAR VOLUME 92.2 fl (80.0-96.0); MONO # 0.8 10^3/uL (0.0-0.8); MONO % 6.7 % (0.0-5.0); PLATELET COUNT, AUTOMATED 364 10^3/uL (150-450); RED BLOOD COUNT 4.72 10^6/uL (4.00-5.40); RED CELL DISTRIBUTION WIDTH 14.1 % (11.5-14.5); WHITE BLOOD COUNT 11.3 10^3/uL (4.0-10.0)
[2018-03-12 11:59] LABS: INR 0.97; PROTHROMBIN TIME 12.9 SECONDS (12.1-14.4)
[2018-03-12 12:00] LABS: PARTIAL THROMBOPLASTIN TIME 26.5 SECONDS (25.4-37.6)
[2018-03-12 12:22] LABS: ALBUMIN 3.4 GM/DL (3.2-5.2); ALBUMIN/GLOBULIN RATIO 0.85 (1.00-1.93); ALKALINE PHOSPHATASE 116 U/L (45-117); ALT/SGPT 28 U/L (12-78); ANION GAP 6 MEQ/L (8-16); AST/SGOT 20 U/L (7-37); BILIRUBIN,DIRECT < 0.1 MG/DL (0.0-0.2); BILIRUBIN,TOTAL 0.3 MG/DL (0.2-1.0); BLOOD UREA NITROGEN 9 MG/DL (7-18); CALCIUM LEVEL 9.5 MG/DL (8.5-10.1); CARBON DIOXIDE LEVEL 26 MEQ/L (21-32); CHLORIDE LEVEL 107 MEQ/L (98-107); CPK CREATINE PHOSPHOKINASE 93 U/L (26-192); CREATININE FOR GFR 1.12 MG/DL (0.55-1.30); FREE T4 1.02 NG/DL (0.76-1.46); GLOMERULAR FILTRATION RATE 54.2 (>51); GLUCOSE, FASTING 96 MG/DL (70-100); LIPASE 173 U/L (73-393); MB/CK RELATIVE INDEX 1.51 (< OR =4); POTASSIUM SERUM 4.1 MEQ/L (3.5-5.1); SODIUM LEVEL 139 MEQ/L (136-145); TOTAL PROTEIN 7.4 GM/DL (6.4-8.2); TROPONIN I 0.55 NG/ML (< 0.10)
[2018-03-12] MEDS: ASPIRIN 81 MG CHEW TABLET PO (12:48)
[2018-03-12] MEDS: NITROGLYCERIN 0.4 MG SUBL TABLET SL (12:49)
[2018-03-12 15:02] LABS: CPK CREATINE PHOSPHOKINASE 92 U/L (26-192); MB/CK RELATIVE INDEX 1.41 (< OR =4); TROPONIN I 0.49 NG/ML (< 0.10)
== END 2018-03-12 15:51 | disposition home or self-care (01) ==
LOC: M ED 11:00
DX: M79.601 Pain in right arm (principal); I25.2 Old myocardial infarction; F60.3 Borderline personality disorder; M19.90 Unspecified osteoarthritis, unspecified site; Z79.899 Other long term (current) drug therapy; Z88.1 Allergy status to other antibiotic agents; Z88.8 Allergy status to other drugs, medicaments and biological substances; F17.210 Nicotine dependence, cigarettes, uncomplicated
CPT/HCPCS: 71045

== ENCOUNTER 2018-08-20 22:20 | Inpatient (IN) | payer OTHER ==
[~2018-08-20] VITALS: Ht 172.7 cm; Wt 126.7 kg
[~2018-08-20 22:20] MED LIST changes: -/ESOM40CA PO; -/LAMO20TA PO; +BACT800T5 PO; +CITRSOL8 PO; +CLOP75TA2 PO; +DIPH25CA PO; +HALO5TA PO; +LAMO100T PO; +LAMO100T80 PO; +LISI-542 PO; +METO1TAB87 PO; +METR-265 PO; -METR1TAB66 PO; +NEXI1CAP3 PO; +NORT25CA2 PO; +PROP10TA55 PO; +PROP10TA56; +VENTAER; +VITA200016 PO
[2018-08-20] MEDS ORDERED: ROCURONIUM BROMIDE 50 MG/5 ML VIAL IV ONE (23:00)
[2018-08-20] MEDS ORDERED: SUCCINYLCHOLINE INJ 200 MG/10 ML VIAL (J0330) IV ONE (23:00)
[2018-08-20] MEDS ORDERED: ETOMIDATE INJ 20MG/10ML VIAL IV ONE (23:00)
[2018-08-20] MEDS ORDERED: PROPOFOL 1,000 MG in APPROPRIATE DILUENT 1 EA IV SCH (23:03)
[2018-08-20 23:15] LABS: HEMATOCRIT 42.4 % (36.0-47.0); HEMOGLOBIN 13.6 g/dl (12.0-15.5); MEAN CORPUSCULAR HEMOGLOBIN 29.6 pg (27.0-33.0); MEAN CORPUSCULAR HGB CONC 32.1 g/dl (32.0-36.5); MEAN CORPUSCULAR VOLUME 92.2 fl (80.0-96.0); PLATELET COUNT, AUTOMATED 346 10^3/uL (150-450); WHITE BLOOD COUNT 10.5 10^3/uL (4.0-10.0)
[2018-08-20 23:36] LABS: ABG BASE EXCESS -2.5 (-2.0-2.0); ABG HCO3 23.4 MEQ/L (22.0-26.0); ABG O2 SATURATION 97.1 % (95.0-99.0); ABG PARTIAL PRESSURE CO2 44.6 mmHg (35.0-45.0); ABG PARTIAL PRESSURE O2 92.9 mmHg (75.0-100.0); ABG STANDARD HCO3 22.4 MEQ/L (22.0-26.0); ABG TOTAL CO2 24.8 MEQ/L (22.0-29.0); ABG pH (ARTERIAL) 7.338 UNITS (7.350-7.450)
[2018-08-20 23:40] LABS: ACETAMINOPHEN LEVEL < 2.0 UG/ML (10.0-30.0); ALBUMIN 3.4 GM/DL (3.2-5.2); ALT/SGPT 23 U/L (12-78); BILIRUBIN,DIRECT < 0.1 MG/DL (0.0-0.2); BILIRUBIN,TOTAL 0.4 MG/DL (0.2-1.0); BLOOD UREA NITROGEN 17 MG/DL (7-18); CALCIUM LEVEL 8.6 MG/DL (8.5-10.1); CARBON DIOXIDE LEVEL 24 MEQ/L (21-32); CHLORIDE LEVEL 107 MEQ/L (98-107); CREATININE FOR GFR 1.13 MG/DL (0.55-1.30); ETHYL ALCOHOL (ETHANOL) < 0.003 % (0.000-0.010); GLOMERULAR FILTRATION RATE 53.6 (>51); GLUCOSE, FASTING 106 MG/DL (70-100); POTASSIUM SERUM 4.1 MEQ/L (3.5-5.1); SALICYLATE LEVEL 3.2 MG/DL (5.0-30.0); SODIUM LEVEL 141 MEQ/L (136-145); TOTAL PROTEIN 6.6 GM/DL (6.4-8.2)
[2018-08-21] VITALS (28 sets, daily range): BP systolic 83–133; BP diastolic 46–60
[2018-08-21] MEDS ORDERED: MORPHINE 4 MG/ML 1ML VIAL/SYRINGE (J2270) IV PRN
[2018-08-21] MEDS ORDERED: MIDAZOLAM INJ 2 MG/2 ML VIAL (J2250) IV ONE
[2018-08-21] MEDS ORDERED: ALPR0.5T3 PO (00:02)
[2018-08-21] MEDS ORDERED: NITR4TASL SL (00:02)
[2018-08-21] MEDS ORDERED: ASPI-161 PO (00:02)
[2018-08-21] MEDS ORDERED: VENTAER INH (00:02)
[2018-08-21] MEDS ORDERED: LAMO200T2 PO (00:02)
[2018-08-21] MEDS ORDERED: ATOR80TA59 PO (00:02)
[2018-08-21] MEDS: PROPOFOL 1,000 MG in APPROPRIATE DILUENT 1 EA IV SCH ×2 (00:04→07:56)
[2018-08-21] MEDS: D5W/0.45% SODIUM CHLORIDE 1,000 ML IV SCH (00:05)
[2018-08-21] MEDS: MIDAZOLAM INJ 2 MG/2 ML VIAL (J2250) IV PRN ×7 (00:11→09:55)
[2018-08-21 01:02] LABS: AMPHETAMINES LEVEL URINE NEGATIVE (NEGATIVE); BARBITURATES URINE NEGATIVE (NEGATIVE); BENZODIAZEPINES URINE POSITIVE (NEGATIVE); CANNABINOIDS URINE NEGATIVE (NEGATIVE); COCAINE METABOLITE URINE NEGATIVE (NEGATIVE); METHADONE URINE NEGATIVE (NEGATIVE); OPIATES URINE NEGATIVE (NEGATIVE); PHENCYCLIDINE URINE NEGATIVE (NEGATIVE)
[2018-08-21 01:07] LABS: CPK CREATINE PHOSPHOKINASE 108 U/L (26-192); MB/CK RELATIVE INDEX 1.11 (< OR =4); TROPONIN I < 0.02 NG/ML (< 0.10)
[2018-08-21] MEDS ORDERED: SUCCINYLCHOLINE 100 MG/5 ML SYRINGE (J0330) ONE (01:27)
[2018-08-21] MEDS ORDERED: ROCURONIUM BROMIDE 50 MG/5 ML VIAL ONE (01:27)
[2018-08-21] MEDS ORDERED: ETOMIDATE INJ 20MG/10ML VIAL ONE (01:27)
[2018-08-21] MEDS ORDERED: PROPOFOL 200 MG/20 ML VIAL ONE (01:27)
[2018-08-21] MEDS: IPRATROPIUM 0.5MG/ALBUTEROL 2.5MG INH SOL UD 3ML (DUONEB)(J7620) NEB SCH ×6 (03:34→20:21)
[2018-08-21 04:37] LABS: BASO % 0.4 % (0.0-1.0); EOS # 0.2 10^3/uL (0.0-0.50); EOS % 2.1 % (0.0-3.0); HEMATOCRIT 41.3 % (36.0-47.0); LYMPH # 3.1 10^3/uL (1.5-4.5); LYMPH % 28.1 % (24.0-44.0); MEAN CORPUSCULAR HEMOGLOBIN 29.4 pg (27.0-33.0); MEAN CORPUSCULAR HGB CONC 31.5 g/dl (32.0-36.5); MEAN CORPUSCULAR VOLUME 93.4 fl (80.0-96.0); MONO # 0.7 10^3/uL (0.0-0.8); MONO % 6.1 % (0.0-5.0); NEUTROPHILS # 6.9 10^3/uL (1.8-7.7); NEUTROPHILS % 62.8 % (36.0-66.0); PLATELET COUNT, AUTOMATED 322 10^3/uL (150-450); RED BLOOD COUNT 4.42 10^6/uL (4.00-5.40)
[2018-08-21 05:03] LABS: ALBUMIN 3.4 GM/DL (3.2-5.2); ALT/SGPT 20 U/L (12-78); BILIRUBIN,TOTAL 0.4 MG/DL (0.2-1.0); BLOOD UREA NITROGEN 16 MG/DL (7-18); CALCIUM LEVEL 8.6 MG/DL (8.5-10.1); CARBON DIOXIDE LEVEL 27 MEQ/L (21-32); CHLORIDE LEVEL 108 MEQ/L (98-107); CHOLESTEROL LEVEL 148 MG/DL (< 200); CPK CREATINE PHOSPHOKINASE 104 U/L (26-192); CREATININE FOR GFR 1.13 MG/DL (0.55-1.30); GLOMERULAR FILTRATION RATE 53.6 (>51); GLUCOSE, FASTING 113 MG/DL (70-100); LDH LACTATE DEHYDROGENASE 169 U/L (84-246); MB/CK RELATIVE INDEX 1.15 (< OR =4); PHOSPHORUS LEVEL 3.6 MG/DL (2.5-4.9); POTASSIUM SERUM 4.4 MEQ/L (3.5-5.1); SODIUM LEVEL 141 MEQ/L (136-145); TRIGLYCERIDES LEVEL 135 MG/DL (<150); TROPONIN I < 0.02 NG/ML (< 0.10)
[2018-08-21 06:18] LABS: ABG BASE EXCESS -1.7 (-2.0-2.0); ABG HCO3 23.6 MEQ/L (22.0-26.0); ABG O2 SATURATION 95.9 % (95.0-99.0); ABG PARTIAL PRESSURE CO2 41.7 mmHg (35.0-45.0); ABG PARTIAL PRESSURE O2 81.1 mmHg (75.0-100.0); ABG STANDARD HCO3 23.1 MEQ/L (22.0-26.0); ABG TOTAL CO2 24.8 MEQ/L (22.0-29.0)
--- NOTE | 2018-08-21 07:30 | ECGEPIP ---
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
--- NOTE | 2018-08-21 07:51 | REP ---
Clinical: Status post intubation . Comparison: 03/12/2018 . Findings: Endotracheal tube approximately 3 cm above the polo. Nasogastric tube courses below left hemidiaphragm. The mediastinum and cardiac silhouette are stable and within normal limits for portable technique. No obvious acute consolidation, effusion, or pneumothorax. Skeletal structures are intact. Impression: 1. Endotracheal tube and nasogastric tube in satisfactory position. 2. Limited examination. No obvious focal consolidation or effusion. Electronically Signed by Christophe Corbin MD 08/21/2018 07:42 A
--- NOTE | 2018-08-21 07:57 | ECGEPIP ---
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
--- NOTE | 2018-08-21 08:10 | REP ---
Clinical: Respiratory failure. Comparison: 08/20/2018. Findings: Endotracheal tube approximately 3 cm above the polo. Nasogastric tube courses below left hemidiaphragm. Left lower lobe consolidation/atelectasis increased from prior examination. No obvious effusion. No pneumothorax. Skeletal structures stable. Impression: Left lower lobe consolidation/atelectasis. Electronically Signed by Christophe Corbin MD 08/21/2018 08:00 A
[2018-08-21] MEDS ORDERED: PANTOPRAZOLE 40MG INJ (PROTONIX) (C9113) IV SCH (09:00)
[2018-08-21] MEDS ORDERED: CHLORHEXIDINE GLUCONATE 0.12 % 15ML UDC (PERIDEX ORAL RINSE) MT SCH (09:00)
--- NOTE | 2018-08-21 09:15 | HPE ---
DATE OF ADMISSION: 08/20/2018 START TIME: 2325 hours STOP TIME: 0004 hours I was called to the emergency room to attend Adela Polo. In essence, this is a 52-year-old female with previous psychiatric history, as well as previous drug overdoses, depression, alcohol, tobacco abuse, previous non ST myocardial infarction. Reportedly, she called emergency medical services (EMS) saying she took 30 to 40 Xanax. She walked out to the ambulance and then became with altered mental status, intubated here in the emergency room for altered consciousness and inability to protect her airway. Initially treated with propofol, was somewhat hypotensive. Currently on a propofol drip at a low dose. She intermittently bucks the ventilator. ALLERGIES: QUINOLONES, ARIPIPRAZOLE, FLUOXETINE, HYDROXYZINE, OFLOXACIN, OXCARBAZEPINE, QUETIAPINE, RISPERDAL. CURRENT MEDICATIONS: - Xanax - Lamictal - Lisinopril 5 mg - Plavix - Lopressor 25 mg twice a day PAST MEDICAL HISTORY: Significant for: 1. Depression and previous drug overdoses. 2. Coronary artery disease, status post non ST elevation myocardial infarction. 3. Underlying hypertension. SOCIAL HISTORY: Reportedly lives here alone in the [facility]. Does smoke, unknown amount. Reportedly free of alcohol according to her last psychiatric history and physical. FAMILY HISTORY: Reportedly noncontributory. REVIEW OF SYSTEMS: Essentially unobtainable due to her mental status. PHYSICAL EXAMINATION: Currently reveals a mildly unkempt female. Appears her stated age. Intubated here in the emergency room. Heart rate 54 with a sinus mechanism. Blood pressure 104 systolic. Respiratory rate 18 to 20. She is afebrile. HEENT: Pupils do react. Sclerae clear. Trachea is midline. Membranes are moist. CHEST: Diminished but symmetric expansion. Occasional rhonchus that clears with cough. No focal adventitious breath sounds are identified. CARDIAC: Bradycardic but regular. Peripheral pulses diminished but palpable. No obvious edema. ABDOMEN: Obese. Soft with active bowel sounds. No convincing organomegaly or masses. EXTREMITIES: No cyanosis or clubbing. NEUROLOGIC: She is sedate but does move all extremities with stimulation. Chest x-ray shows the endotracheal tube to be in reasonable position. Nasogastric tube pass below the level of the diaphragm. Available laboratories show a white blood cell count of 10.5, hemoglobin 13.6, platelet count 346,000. No differential available. Sodium 141, potassium 4.1, chloride 107, CO2 of 24, BUN 17, creatinine 1.13, glucose 106, alkaline phosphatase 137, TSH 4.21. ETOH unremarkable. Salicylate and acetaminophen levels are negative. Electrocardiogram (EKG) shows sinus bradycardia with a rate of 57. There is voltage criteria for left ventricular hypertrophy. Nonspecified ST-T wave abnormalities. IMPRESSION: 1. Intentional overdose of benzodiazepine. 2. Cardiac history with previous myocardial infarction. 3. Sinus bradycardia. 4. Nicotine abuse. 5. History of depression. RECOMMENDATIONS: At this point, we will facilitate admission to the intensive care unit (ICU). We will use supportive care for benzodiazepine overdose and support her until the drugs wear off and she should be able to be extubated. Chest x-ray is borderline for volume overload, so we will avoid additional IV fluids. We will monitor urinary output. She is on Plavix. Intermittently, she is mildly bradycardic in the 40s but with reasonable blood pressure. I always wonder in these incidences if she took any of her other medications, not just her Xanax, and certainly we will be on the look out for any worsening of her bradycardia. Certainly we could use Glucagon if needed. For now, we will hold her antihypertensives. Ulcer prophylaxis has been added. She is already on Plavix and we will hol on heparin for now. At this point, she does remain critically ill. When extubated she will obviously need further psychiatric evaluation and likely admission to the inpatient mental health unit. Given her smoking history, we will add nebulized bronchodilators. I do not see a role for antimicrobials as there is no obvious aspiration. At this point, she is critically ill. I left the bedside at 0004 hours. 39 minutes of critical care delivered at the bedside, not including procedures.
[2018-08-21 10:19] LABS: ABG BASE EXCESS -3.1 (-2.0-2.0); ABG HCO3 22.5 MEQ/L (22.0-26.0); ABG O2 SATURATION 94.9 % (95.0-99.0); ABG PARTIAL PRESSURE CO2 41.9 mmHg (35.0-45.0); ABG PARTIAL PRESSURE O2 75.1 mmHg (75.0-100.0); ABG STANDARD HCO3 21.9 MEQ/L (22.0-26.0); ABG TOTAL CO2 23.7 MEQ/L (22.0-29.0); ABG pH (ARTERIAL) 7.347 UNITS (7.350-7.450)
--- NOTE | 2018-08-21 10:46 | CCN ---
DATE OF VISIT: 08/21/2018 Start time: 0830 hours. Stop time: 0904 hours. Again attended Adela Polo here in the intensive care unit. Patient has been examined and chart is reviewed. Maximum temperature (Tmax) overnight 97.8. Blood pressure generally 80 to 130s. Heart rate generally in the upper 40s to the low 60s with a sinus mechanism. She does overbreathe the ventilator. Only 318 mL in with 485 mL out. Most recent laboratory showed a sodium 141, potassium of 4.4, chloride 108, CO2 27, BUN 16, creatinine 1.13, glucose 113, alkaline phosphatase 119. Troponins are negative. White blood cell count 11.0, hemoglobin 13.0, platelet count 322,000, 62% segs, no bands. Blood gas done on a PRVC rate of 16, total volume 450 positive end-expiratory pressure (PEEP) of 5, FiO2 of 60%, has a pH 7.370, pCO2 of 41.7, pO2 of 81, saturation of 96%. Chest x-ray shows endotracheal and gastric tubes in good position. I do believe there is a little left basilar atelectasis today. Film is mildly underpenetrated with a poor inspiratory effort. On exam, she is sedate. Pupils do react. Sclerae clear. Trachea is midline. Chest shows diminished expansion, although it is symmetric. No significant rhonchi. A little more decreased at the left base. No rubs. Cardiac exam; distant bradycardic, but regular. Peripheral pulses palpable. No obvious edema. Abdomen, obese, soft with active bowel sounds. No convincing organomegaly or masses. Extremities, no cyanosis or clubbing. Neuralgically, she is sedate but does respond to noxious stimuli. Most pressing problems requiring my presence at the bedside: 1. Overdose with at least Xanax. 2. Depression and mental health issues. 3. Long-standing tobacco abuse. 4. Coronary artery disease. RECOMMENDATIONS: At this point, I still wonder if this is polypharmacy overdose in view of her relative bradycardia, although, blood pressure has been reasonable and her heart rate is stable, and this requires no acute intervention. For now, we will continue supportive care. Will wean her sedatives as able, although, she does not appear to be able to be extubated this morning. I will change her to a more standard mode of ventilation which will aid in the weaning process. We will continue her Plavix. She is on ulcer prophylaxis. If she is not able to be extubated today, then we will begin enteral feeds. At this point, she does remain critically ill. I left the bedside at 0904 hours. An additional 34 minutes of critical care time delivered at the bedside, not including procedures.
--- NOTE | 2018-08-21 10:52 | CCN ---
DATE OF VISIT: 08/21/2018 START TIME: 1015 STOP TIME: 1036 I again attended Adela Polo. She is now awake, alert, and appropriate despite low-dose propofol. It was discontinued. Within several minutes, she is following all commands and is comfortable on just continuous positive airway pressure (CPAP)/pressure support. She was extubated without difficulties. No stridor. Follows commands. Complains mainly of a sore throat. Oxygenating well on a 40% aerosol face mask. Orogastric (OG) tube was discontinued. We will discontinue sedating medications. I will have the hospitalists assume her care. We will have psychiatry see her and will have suicide precaution sitters at the bedside. JANINA
[2018-08-21] MEDS: CLOPIDOGREL 75 MG TAB PO SCH (11:05)
--- NOTE | 2018-08-21 11:26 | IPNPDOC ---
Subjective Date Seen The patient was seen on 08/21/18. Subjective Chief Complaint/HPI Patient has been extubated, but she is still incoherent, unable to understand our conversation General: Reports: ROS Unobtainable Objective Physical Examination Eye Exam: Positive: Conjunctiva & lids normal ENT Exam: Positive: Atraumatic, Mucous membr. moist/pink Neck Exam: Positive: Supple, JVD, thyromegaly Chest Exam: Positive: Clear to auscultation, Normal air movement Heart Exam: Positive: Rate Normal, Normal S1, Normal S2 Abdomen Exam: Positive: Normal bowel sounds Skin Exam: Positive: Nl turgor and temperature Psych Exam: Positive: Other (awake, responds to vocal command but incoherent) A-FIB/CHADSVASC A-FIB History Current/History of A-Fib/PAF?: No Assessment /Plan Problems (1) Drug overdose, intentional Status: Acute Problem Text: She was admitted by Dr. Hernandez to ICU Daily, just has been extubated today Tolerating O2 by Ventimask Is still not current, unable to understand the conversation Sedation with propofol has been stopped Continue monitoring in ICU (2) Respiratory failure requiring intubation Status: Acute Problem Text: comfortable on just continuous positive airway pressure (CPAP)/pressure support. She was extubated without difficulties. No stridor. Follows commands. Complains mainly of a sore throat. Oxygenating well on a 40% aerosol face mask. Orogastric (OG) tube was discontinued. Plan/VTE VTE Prophylaxis Ordered?: Yes VS, I&O, 24H, Fishbone Vital Signs/I&O Vital Signs Date Time Temp Pulse Resp B/P (MAP) Pulse Ox O2 Delivery O2 Flow Rate FiO2 08/21/18 10:00 50 08/21/18 08:00 49 113/56 (75) 100 08/21/18 07:56 16 08/21/18 07:00 97.7 08/20/18 22:22 Room Air I&O- Last 24 Hours up to 6 AM 08/21/18 06:00 Intake Total 318.7 ml Output Total 380 ml Balance -61.3 ml Laboratory Data 24H LABS Laboratory Tests 2 08/20/18 22:26: Nucleated Red Blood Cells % (auto) 0.0, Anion Gap 10, Glomerular Filtration Rate 53.6, Calcium Level 8.6, Aspartate Amino Transf (AST/SGOT) 13, Alanine Aminotransferase (ALT/SGPT) 23, Alkaline Phosphatase 137H, Total Bilirubin 0.4, Direct Bilirubin < 0.1, Total Creatine Kinase 108, Creatine Kinase MB 1.0, Creatine Kinase MB Relative Index 1.11, Troponin I < 0.02, Total Protein 6.6, Albumin 3.4, Albumin/Globulin Ratio 1.06, Thyroid Stimulating Hormone (TSH) 4.210H, Salicylates Level 3.2L, Acetaminophen Level < 2.0L, Ethyl Alcohol Level < 0.003 08/20/18 23:28: Blood Gas Bicarbonate Standard 22.4, Arterial Blood pH 7.338L, Arterial Blood Partial Pressure CO2 44.6, Arterial Blood Partial Pressure O2 92.9, Arterial Blood Total CO2 24.8, Arterial Blood HCO3 23.4, Arterial Blood Base Excess - 2.5L, Arterial Blood Oxygen Saturation 97.1 08/21/18 00:43: Urine Amphetamines Screen NEGATIVE, Urine Benzodiazepines Screen POSITIVEH, Urine Opiates Screen NEGATIVE, Urine Methadone Screen NEGATIVE, Urine Barbiturates Screen NEGATIVE, Urine Phencyclidine Screen NEGATIVE, Urine Cocaine Metabolite Screen NEGATIVE, Urine Cannabinoids Screen NEGATIVE 08/21/18 04:04: Nucleated Red Blood Cells % (auto) 0.0, Anion Gap 6L, Glomerular Filtration Rate 53.6, Calcium Level 8.6, Aspartate Amino Transf (AST/SGOT) 15, Alanine Aminotransferase (ALT/SGPT) 20, Alkaline Phosphatase 119H, Total Bilirubin 0.4, Total Creatine Kinase 104, Creatine Kinase MB 1.0, Creatine Kinase MB Relative Index 1.15, Troponin I < 0.02, Total Protein 6.0L, Albumin 3.4, Albumin/Globulin Ratio 1.31, Immature Granulocyte % (Auto) 0.5, White Blood Count 11.0H, Red Blood Count 4.42, Hemoglobin 13.0, Hematocrit 41.3, Mean Corpuscular Volume 93.4, Mean Corpuscular Hemoglobin 29.4, Mean Corpuscular Hemoglobin Concent 31.5L, Red Cell Distribution Width 14.4, Platelet Count 322, Neutrophils (%) (Auto) 62.8, Lymphocytes (%) (Auto) 28.1, Monocytes (%) (Auto) 6.1H, Eosinophils (%) (Auto) 2.1, Basophils (%) (Auto) 0.4, Neutrophils # (Auto) 6.9, Lymphocytes # (Auto) 3.1, Monocytes # (Auto) 0.7, Eosinophils # (Auto) 0.2, Basophils # (Auto) 0.0, Blood Urea Nitrogen 16, Creatinine 1.13, Sodium Level 141, Potassium Level 4.4, Chloride Level 108H, Carbon Dioxide Level 27, Phosphorus Level 3.6, Lactate Dehydrogenase 169, Triglycerides Level 135, Cholesterol Level 148 08/21/18 05:21: Blood Gas Bicarbonate Standard 23.1, Arterial Blood pH 7.370, Arterial Blood Partial Pressure CO2 41.7, Arterial Blood Partial Pressure O2 81.1, Arterial Blood Total CO2 24.8, Arterial Blood HCO3 23.6, Arterial Blood Base Excess -1.7, Arterial Blood Oxygen Saturation 95.9 08/21/18 10:05: Blood Gas Bicarbonate Standard 21.9L, Arterial Blood pH 7.347L, Arterial Blood Partial Pressure CO2 41.9, Arterial Blood Partial Pressure O2 75.1, Arterial Blood Total CO2 23.7, Arterial Blood HCO3 22.5, Arterial Blood Base Excess - 3.1L, Arterial Blood Oxygen Saturation 94.9L CBC/BMP Laboratory Tests 08/20/18 22:26 Red Blood Count 4.60, Mean Corpuscular Volume 92.2, Mean Corpuscular Hemoglobin 29.6, Mean Corpuscular Hemoglobin Concent 32.1, Red Cell Distribution Width 14.2 08/21/18 04:04 Red Blood Count 4.42, Mean Corpuscular Volume 93.4, Mean Corpuscular Hemoglobin 29.4, Mean Corpuscular Hemoglobin Concent 31.5 L, Red Cell Distribution Width 14.4, Neutrophils (%) (Auto) 62.8, Lymphocytes (%) (Auto) 28.1, Monocytes (%) (Auto) 6.1 H, Eosinophils (%) (Auto) 2.1, Basophils (%) (Auto) 0.4, Neutrophils # (Auto) 6.9, Lymphocytes # (Auto) 3.1, Monocytes # (Auto) 0.7, Eosinophils # (Auto) 0.2, Basophils # (Auto) 0.0, Calcium Level 8.6, Phosphorus Level 3.6, Aspartate Amino Transf (AST/SGOT) 15, Alanine Aminotransferase (ALT/SGPT) 20, Lactate Dehydrogenase 169, Total Creatine Kinase 104, Alkaline Phosphatase 119 H, Total Bilirubin 0.4, Triglycerides Level 135, Cholesterol Level 148, Total Protein 6.0 L, Albumin 3.4 FAM SIMMS MD August 21, 2018 11:26
[2018-08-22] VITALS (9 sets, daily range): BP systolic 93–133; BP diastolic 46–60
[2018-08-22] MEDS: IPRATROPIUM 0.5MG/ALBUTEROL 2.5MG INH SOL UD 3ML (DUONEB)(J7620) NEB SCH ×5 (00:40→15:52)
[2018-08-22] MEDS: D5W/0.45% SODIUM CHLORIDE 1,000 ML IV SCH (03:02)
[2018-08-22] MEDS ORDERED: LORazepam 1 MG TAB PO PRN (03:30)
[2018-08-22 05:15] LABS: BASO % 0.3 % (0.0-1.0); EOS # 0.1 10^3/uL (0.0-0.50); EOS % 0.5 % (0.0-3.0); HEMATOCRIT 39.1 % (36.0-47.0); HEMOGLOBIN 12.6 g/dl (12.0-15.5); LYMPH # 2.2 10^3/uL (1.5-4.5); LYMPH % 18.2 % (24.0-44.0); MEAN CORPUSCULAR HGB CONC 32.2 g/dl (32.0-36.5); MEAN CORPUSCULAR VOLUME 93.1 fl (80.0-96.0); MONO # 0.7 10^3/uL (0.0-0.8); MONO % 5.5 % (0.0-5.0); NEUTROPHILS # 9.2 10^3/uL (1.8-7.7); NEUTROPHILS % 74.8 % (36.0-66.0); PLATELET COUNT, AUTOMATED 298 10^3/uL (150-450); WHITE BLOOD COUNT 12.3 10^3/uL (4.0-10.0)
[2018-08-22] MEDS ORDERED: NICOTINE 14 MG/24 HR TRANSDERMAL TD PRN (05:30)
[2018-08-22 05:40] LABS: ALBUMIN 3.1 GM/DL (3.2-5.2); ALT/SGPT 18 U/L (12-78); BILIRUBIN,TOTAL 0.5 MG/DL (0.2-1.0); BLOOD UREA NITROGEN 12 MG/DL (7-18); CALCIUM LEVEL 8.7 MG/DL (8.5-10.1); CARBON DIOXIDE LEVEL 26 MEQ/L (21-32); CHLORIDE LEVEL 109 MEQ/L (98-107); CHOLESTEROL LEVEL 145 MG/DL (< 200); CPK CREATINE PHOSPHOKINASE 72 U/L (26-192); CREATININE FOR GFR 0.92 MG/DL (0.55-1.30); GLOMERULAR FILTRATION RATE > 60.0 (>51); GLUCOSE, FASTING 98 MG/DL (70-100); LDH LACTATE DEHYDROGENASE 141 U/L (84-246); PHOSPHORUS LEVEL 2.9 MG/DL (2.5-4.9); POTASSIUM SERUM 3.8 MEQ/L (3.5-5.1); SODIUM LEVEL 140 MEQ/L (136-145); TOTAL PROTEIN 6.4 GM/DL (6.4-8.2); TRIGLYCERIDES LEVEL 115 MG/DL (<150)
--- NOTE | 2018-08-22 08:54 | REP ---
Clinical: Respiratory failure. Comparison: 08/21/2018. Findings: Bibasilar infiltrates (left greater than right) and possible small layering left effusion again noted and similar to prior examination. No pneumothorax. Visualized mediastinum and cardiac silhouette stable. Skeletal structures intact. Impression: Bibasilar infiltrates and possible small left effusion similar to prior examination. Electronically Signed by Christophe Corbin MD 08/22/2018 08:45 A
[2018-08-22] MEDS ORDERED: lamoTRIgine 100MG TAB PO SCH (09:00)
[2018-08-22] MEDS ORDERED: LISINOPRIL 5 MG TAB PO SCH (09:00)
[2018-08-22] MEDS ORDERED: METOPROLOL TART 25 MG TABLET PO SCH (09:00)
[2018-08-22] MEDS ORDERED: PANTOPRAZOLE 40MG TAB (PROTONIX) PO SCH (09:00)
[2018-08-22] MEDS: CLOPIDOGREL 75 MG TAB PO SCH (09:57)
--- NOTE | 2018-08-22 10:57 | IPNPDOC ---
Subjective Date Seen The patient was seen on 08/22/18. Subjective Chief Complaint/HPI Patient is still lethargic but easily arousable with the touch in local stimuli, offers no complaints, to expect sleep General: Reports: ROS Unobtainable Objective Physical Examination Eye Exam: Positive: Conjunctiva & lids normal ENT Exam: Positive: Atraumatic, Mucous membr. moist/pink Neck Exam: Positive: Supple, JVD, thyromegaly Chest Exam: Positive: Clear to auscultation, Normal air movement Heart Exam: Positive: Rate Normal, Normal S1, Normal S2 Abdomen Exam: Positive: Normal bowel sounds Skin Exam: Positive: Nl turgor and temperature Psych Exam: Positive: Other (response to vocal stimuli, but drifts back to sl eep still lethargic) A-FIB/CHADSVASC A-FIB History Current/History of A-Fib/PAF?: No Assessment /Plan Problems (1) Drug overdose, intentional Status: Acute Problem Text: She was admitted by Dr. Hernandez to ICU Daily, just has been extubated yesterday Tolerating O2 by Ventimask sedation with propofol has been stopped Start regular diet DC Menezes Out of bed as tolerated Psych consult once medically stable . We'll also request a UA (2) Respiratory failure requiring intubation Status: Acute Problem Text: comfortable on just continuous positive airway pressure (CPAP)/pressure support. She was extubated without difficulties. No stridor. Follows commands. Complains mainly of a sore throat. Oxygenating well on a 40% aerosol face mask. Orogastric (OG) tube was discontinued. Plan/VTE VTE Prophylaxis Ordered?: Yes VS, I&O, 24H, Fishbone Vital Signs/I&O Vital Signs Date Time Temp Pulse Resp B/P (MAP) Pulse Ox O2 Delivery O2 Flow Rate FiO2 08/22/18 08:00 2.0 08/22/18 08:00 98.9 77 22 118/56 (76) 96 08/21/18 12:00 40 08/20/18 22:22 Room Air I&O- Last 24 Hours up to 6 AM 08/22/18 06:00 Intake Total 685 ml Output Total 1460 ml Balance -775 ml Laboratory Data 24H LABS Laboratory Tests 2 08/22/18 04:29: Immature Granulocyte % (Auto) 0.7, White Blood Count 12.3H, Red Blood Count 4.20, Hemoglobin 12.6, Hematocrit 39.1, Mean Corpuscular Volume 93.1, Mean C orpuscular Hemoglobin 30.0, Mean Corpuscular Hemoglobin Concent 32.2, Red Cell Distribution Width 14.8H, Platelet Count 298, Neutrophils (%) (Auto) 74.8H, Lymphocytes (%) (Auto) 18.2L, Monocytes (%) (Auto) 5.5H, Eosinophils (%) (Auto) 0.5, Basophils (%) (Auto) 0.3, Neutrophils # (Auto) 9.2H, Lymphocytes # (Auto) 2.2, Monocytes # (Auto) 0.7, Eosinophils # (Auto) 0.1, Basophils # (Auto) 0.0, Nucleated Red Blood Cells % (auto) 0.0, Anion Gap 5L, Glomerular Filtration Rate > 60.0, Blood Urea Nitrogen 12, Creatinine 0.92, Sodium Level 140, Potassium Level 3.8, Chloride Level 109H, Carbon Dioxide Level 26, Calcium Level 8.7, Phosphorus Level 2.9, Aspartate Amino Transf (AST/SGOT) 13, Alanine Amino transferase (ALT/SGPT) 18, Lactate Dehydrogenase 141, Total Creatine Kinase 72, Alkaline Phosphatase 108, Total Bilirubin 0.5, Triglycerides Level 115, Cholesterol Level 145, Total Protein 6.4, Albumin 3.1L, Albumin/Globulin Ratio 0.94L 08/22/18 09:56: CBC/BMP Laboratory Tests 08/22/18 04:29 Red Blood Count 4.20, Mean Corpuscular Volume 93.1, Mean Corpuscular Hemoglobin 30.0, Mean Corpuscular Hemoglobin Concent 32.2, Red Cell Distribution Width 14.8 H, Neutrophils (%) (Auto) 74.8 H, Lymphocytes (%) (Auto) 18.2 L, Monocytes (%) (Auto) 5.5 H, Eosinophils (%) (Auto) 0.5, Basophils (%) (Auto) 0.3, Neutrophils # (Auto) 9.2 H, Lymphocytes # (Auto) 2.2, Monocytes # (Auto) 0.7, Eosinophils # (Auto) 0.1, Basophils # (Auto) 0.0, Calcium Level 8.7, Phosphorus Level 2.9, Aspartate Amino Transf (AST/SGOT) 13, Alanine Aminotransferase (ALT/SGPT) 18, Lactate Dehydrogenase 141, Total Creatine Kinase 72, Alkaline Phosphatase 108, Total Bilirubin 0.5, Triglycerides Level 115, Cholesterol Level 145, Total Protein 6.4, Albumin 3.1 L FAM SIMMS MD August 22, 2018 10:56
[2018-08-22 11:49] LABS: APPEARANCE, URINE CLEAR (CLEAR); BACTERIA, URINE AUTO 1+ (NEGATIVE); BILIRUBIN, URINE AUTO NEGATIVE (NEGATIVE); BLOOD, URINE BLOOD 2+ (NEGATIVE); COLOR, URINE YELLOW (YELLOW); GLUCOSE, URINE (UA) AUTO NEGATIVE (NEGATIVE); KETONE, URINE AUTO NEGATIVE (NEGATIVE); LEUKOCYTE ESTERASE, URINE AUTO TRACE (NEGATIVE); MUCUS, URINE SMALL (NEGATIVE); NITRITE, URINE AUTO NEGATIVE (NEGATIVE); PROTEIN, URINE AUTO NEGATIVE (NEGATIVE); RBC, URINE AUTO 7 /HPF (0-3); SPECIFIC GRAVITY URINE AUTO 1.009 (1.002-1.035); SQUAMOUS EPITHELIAL CELL UR AU 0 /HPF (0-6); UROBILINOGEN, URINE AUTO 0.2 mg/dL (0.0-2.0); WBC, URINE AUTO 4 /HPF (0-3)
[2018-08-22] MEDS ORDERED: LORazepam 2 MG/ML VIAL (J2060) IM STA ×2 (15:25→16:09)
[2018-08-22] MEDS ORDERED: LORazepam 2 MG/ML VIAL (J2060) As Ordered ONE (15:27)
--- NOTE | 2018-08-22 16:00 | DS.PDOC ---
Discharge Summary General Date of Admission August 20, 2018 at 23:48 Date of Discharge 08/22/18 Attending Physician: FAM SIMMS MD Discharge Summary PROCEDURES PERFORMED DURING STAY: None. ADMITTING DIAGNOSES: 1. Benzodiazepine overdose. #2. Suicidal attempt. #3. Acute respiratory failure. DISCHARGE DIAGNOSES: 1. #1. Benzodiazepine overdose. #2. Suicidal attempt. #3. Acute respiratory failure. COMPLICATIONS/CHIEF COMPLAINT: Drug Overdose Intentional, Respiratory Failure. HISTORY OF PRESENT ILLNESS: 52-year-old female with previous psychiatric history, as well as previous drug overdoses, depression, alcohol, tobacco abuse, previous non ST myocardial infarction. Reportedly, she called emergency medical services (EMS) saying she took 30 to 40 Xanax. She walked out to the ambulance and then became with altered mental status, intubated here in the emergency room for altered consciousness and inability to protect her airway. Initially treated with propofol, was somewhat hypotensive. Currently on a propofol drip at a low dose. She intermittently bucks the ventilator.. HOSPITAL COURSE: (1) Drug overdose, intentional She was admitted by Dr. Hernandez to ICU Daily, just has been extubated yesterday Tolerating O2 by Ventimask sedation with propofol has been stopped Start regular diet DC Menezes Out of bed as tolerated Psych consult called and patient needs to be transferred to [facility] Patient was very aggressive and wanted to leave the hospital, hence psych consult in the emergency room was called and she also received Ativan 2 mg IM and was transferred to [facility] (2) Respiratory failure requiring intubation comfortable on just continuous positive airway pressure (CPAP)/pressure support. She was extubated without difficulties. No stridor. Follows commands. Complains mainly of a sore throat. Oxygenating well on a 40% aerosol face mask. Orogastric (OG) tube was discontinued.. DISCHARGE MEDICATIONS: Please see below. ALLERGIES: Please see below. PHYSICAL EXAMINATION ON DISCHARGE: VITAL SIGNS: Please see below. GENERAL: Within normal range HEENT: PERRLA. Extraocular muscles intact NECK: Supple, no JVD CARDIOVASCULAR EXAMINATION: S1, S2, regular RESPIRATORY EXAMINATION: Clear to A&P ABDOMINAL EXAMINATION: , Soft, nontender. Once the present EXTREMITIES: No clubbing, cyanosis, edema SKIN: Within normal range NEUROLOGICAL EXAMINATION: . No focal motor sensory deficit PSYCHIATRIC EXAMINATION: Within normal range LABORATORY DATA: Please see below. IMAGING: As above PROGNOSIS: Good ACTIVITY: As tolerated. DIET: Regular DISCHARGE PLAN: to inpatient psych unit DISPOSITION: . To inpatient psych unit DISCHARGE INSTRUCTIONS: 1. As above. ITEMS TO FOLLOWUP ON ON OUTPATIENT: 1. As above. DISCHARGE CONDITION: Stable. TIME SPENT ON DISCHARGE: Greater than 45 minutes Vital Signs/I&Os Vital Signs Date Time Temp Pulse Resp B/P (MAP) Pulse Ox O2 Delivery O2 Flow Rate FiO2 08/22/18 12:00 99.3 79 20 133/60 (84) 96 2.0 08/21/18 12:00 40 08/20/18 22:22 Room Air I&O- Last 24 Hours up to 6 AM 08/22/18 06:00 Intake Total 685 ml Output Total 1460 ml Balance -775 ml Laboratory Data Labs 24H Laboratory Tests 2 08/22/18 04:29: Immature Granulocyte % (Auto) 0.7, White Blood Count 12.3H, Red Blood Count 4.20, Hemoglobin 12.6, Hematocrit 39.1, Mean Corpuscular Volume 93.1, Mean Corpuscular Hemoglobin 30.0, Mean Corpuscular Hemoglobin Concent 32.2, Red Cell Distribution Width 14.8H, Platelet Count 298, Neutrophils (%) (Auto) 74.8H, Lymphocytes (%) (Auto) 18.2L, Monocytes (%) (Auto) 5.5H, Eosinophils (%) (Auto) 0.5, Basophils (%) (Auto) 0.3, Neutrophils # (Auto) 9.2H, Lymphocytes # (Auto) 2.2, Monocytes # (Auto) 0.7, Eosinophils # (Auto) 0.1, Basophils # (Auto) 0.0, Nucleated Red Blood Cells % (auto) 0.0, Anion Gap 5L, Glomerular Filtration Rate > 60.0, Blood Urea Nitrogen 12, Creatinine 0.92, Sodium Level 140, Potassium Level 3.8, Chloride Level 109H, Carbon Dioxide Level 26, Calcium Level 8.7, Phosphorus Level 2.9, Aspartate Amino Transf (AST/SGOT) 13, Alanine Aminotransferase (ALT/SGPT) 18, Lactate Dehydrogenase 141, Total Creatine Kinase 72, Alkaline Phosphatase 108, Total Bilirubin 0.5, Triglycerides Level 115, Cholesterol Level 145, Total Protein 6.4, Albumin 3.1L, Albumin/Globulin Ratio 0.94L 08/22/18 09:56: 08/22/18 11:38: Urine Appearance CLEAR, Urine Color YELLOW, Urine pH 5.0, Urine Specific [place] 1.009, Urine Protein NEGATIVE, Urine Glucose (UA) NEGATIVE, Urine Ketones NEGATIVE, Urine Urobilinogen 0.2, Urine Bilirubin NEGATIVE, Urine Leukocyte Esterase TRACEH, Urine Blood 2+H, Urine Nitrite NEGATIVE, Urine WBC (Auto) 4H, Urine RBC (Auto) 7H, Urine Hyaline Casts (Auto) 0, Urine Bacteria (Auto) 1+H, Urine Squamous Epithelial Cells 0, Urine Mucus (Auto) SMALL, Urine Sperm (Auto) CBC/BMP Laboratory Tests 08/22/18 04:29 Red Blood Count 4.20, Mean Corpuscular Volume 93.1, Mean Corpuscular Hemoglobin 30.0, Mean Corpuscular Hemoglobin Concent 32.2, Red Cell Distribution Width 14.8 H, Neutrophils (%) (Auto) 74.8 H, Lymphocytes (%) (Auto) 18.2 L, Monocytes (%) (Auto) 5.5 H, Eosinophils (%) (Auto) 0.5, Basophils (%) (Auto) 0.3, Neutrophils # (Auto) 9.2 H, Lymphocytes # (Auto) 2.2, Monocytes # (Auto) 0.7, Eosinophils # (Auto) 0.1, Basophils # (Auto) 0.0, Calcium Level 8.7, Phosphorus Level 2.9, Aspartate Amino Transf (AST/SGOT) 13, Alanine Aminotransferase (ALT/SGPT) 18, Lactate Dehydrogenase 141, Total Creatine Kinase 72, Alkaline Phosphatase 108, Total Bilirubin 0.5, Triglycerides Level 115, Cholesterol Level 145, Total Protein 6.4, Albumin 3.1 L Discharge Medications Scheduled Alprazolam (Alprazolam) 0.5 Mg Tablet, 0.5 MG PO TID, (Reported) Aspirin (Aspirin EC) 81 Mg Tablet.dr, 81 MG PO DAILY, (Reported) Atorvastatin Calcium (Atorvastatin Calcium) 80 Mg Tablet, 80 MG PO QHS, (Report ed) Clopidogrel Bisulfate (Clopidogrel) 75 Mg Tab, 75 MG PO DAILY, (Reported) Lamotrigine (Lamotrigine) 200 Mg Tablet, 200 MG PO DAILY, (Reported) Lisinopril (Lisinopril) 5 Mg Tab, 5 MG PO DAILY, (Reported) Metoprolol Tartrate (Metoprolol Tartrate) 25 Mg Tab, 25 MG PO BID, (Reported) Scheduled PRN Albuterol Sulfate (Ventolin Hfa) 18 Gm Hfa.aer.ad, 2 PUFF INH Q4H PRN for SHORTNESS OF BREATH, (Reported) Allergies Coded Allergies: oxcarbazepine (Verified Allergy, Mild, RASH, 08/20/18) risperidone (Verified Adverse Reaction, Intermediate, TACHYCARDIA, 08/20/18) Quinolones (Verified Adverse Reaction, Mild, RASH, 08/20/18) aripiprazole (Verified Adverse Reaction, Mild, NUMBNESS, 08/20/18) fluoxetine (Verified Adverse Reaction, Mild, BLOODY NOSE, 08/20/18) hydroxyzine (Verified Adverse Reaction, Mild, NUMBNESS, 08/20/18) ofloxacin (Verified Adverse Reaction, Mild, RASH, 08/20/18) quetiapine (Verified Adverse Reaction, Mild, DISORIENTATION, 08/20/18) FAM SIMMS MD August 22, 2018 16:00
[2018-08-22] MEDS ORDERED: ATORVASTATIN 20 MG TAB PO SCH (21:00)
== END 2018-08-22 16:47 | DRG 812 ==
LOC: M ED 22:20 → M ED INP 23:48 → M ICU 08-21 01:50
PROVIDERS: ADMIT Internal Medicine Pulmonary Disease; ATTEND Internal Medicine
PROC: 5A1935Z Respiratory Ventilation, Less than 24 Consecutive Hours (ICD-10-PCS; principal; 2018-08-20)
DX: T42.4X2A Poisoning by benzodiazepines, intentional self-harm, initial encounter (principal); J96.00 Acute respiratory failure, unspecified whether with hypoxia or hypercapnia; F32.9 Major depressive disorder, single episode, unspecified; I10 Essential (primary) hypertension; I25.2 Old myocardial infarction; Z88.8 Allergy status to other drugs, medicaments and biological substances; Z79.899 Other long term (current) drug therapy; Z79.82 Long term (current) use of aspirin; I25.10 Atherosclerotic heart disease of native coronary artery without angina pectoris; F17.200 Nicotine dependence, unspecified, uncomplicated

== ENCOUNTER 2018-08-22 15:20 | Inpatient (IN) | payer MEDICAID, OTHER ==
[~2018-08-22] VITALS: Ht 172.7 cm; Wt 126.3 kg
[~2018-08-22 15:20] MED LIST changes: +ASPI-161 PO; +ATOR80TA59 PO; +LAMO200T2 PO; +NITR4TASL SL; +VENTAER INH
[2018-08-22] MEDS ORDERED: traZODone 50 MG TAB PO PRN (15:45)
[2018-08-22] MEDS ORDERED: OLANZapine ORAL DISINTEGRATING TAB 5MG PO PRN (15:45)
[2018-08-22] MEDS ORDERED: MAALOX 30 ML SUSP *UDC PO PRN (15:45)
[2018-08-22] MEDS ORDERED: MOM 30ML SUSPENSION UDC PO PRN (15:45)
--- NOTE | 2018-08-22 16:19 | HPEPDOC ---
General Date of Admission 08/22/18 Date of Service: August 22, 2018 Attending Physician: FAM SIMMS MD Chief Complaint The patient is a 52-year-old female admitted with a reason for visit of Unspecified Depressive Disorder. Source: Patient Exam Limitations: Other Timing/Duration: Unsure Severity: Other Associated Symptoms: Unobtainable History of Present Illness This is a 52 years old white female with past medical history of depression, was recently admitted to ICU with diagnosis of Xanax overdose, followed by acute respiratory failure. She was intubated and extubated and is being transferred to [facility] for suicidal attempts and depression. Patient very agitated on transferred to [facility] unable to get a extensive history secondary to her mental status. Home Medications Scheduled Alprazolam (Alprazolam) 0.5 Mg Tablet, 0.5 MG PO TID, (Reported) Aspirin (Aspirin EC) 81 Mg Tablet.dr, 81 MG PO DAILY, (Reported) Atorvastatin Calcium (Atorvastatin Calcium) 80 Mg Tablet, 80 MG PO QHS, (Reported) Clopidogrel Bisulfate (Clopidogrel) 75 Mg Tab, 75 MG PO DAILY, (Reported) Lamotrigine (Lamotrigine) 200 Mg Tablet, 200 MG PO DAILY, (Reported) Lisinopril (Lisinopril) 5 Mg Tab, 5 MG PO DAILY, (Reported) Metoprolol Tartrate (Metoprolol Tartrate) 25 Mg Tab, 25 MG PO BID, (Reported) Scheduled PRN Albuterol Sulfate (Ventolin Hfa) 18 Gm Hfa.aer.ad, 2 PUFF INH Q4H PRN for SHORTNESS OF BREATH, (Reported) Allergies Coded Allergies: oxcarbazepine (Verified Allergy, Mild, RASH, 08/20/18) risperidone (Verified Adverse Reaction, Intermediate, TACHYCARDIA, 08/20/18) Quinolones (Verified Adverse Reaction, Mild, RASH, 08/20/18) aripiprazole (Verified Adverse Reaction, Mild, NUMBNESS, 08/20/18) fluoxetine (Verified Adverse Reaction, Mild, BLOODY NOSE, 08/20/18) hydroxyzine (Verified Adverse Reaction, Mild, NUMBNESS, 08/20/18) ofloxacin (Verified Adverse Reaction, Mild, RASH, 08/20/18) quetiapine (Verified Adverse Reaction, Mild, DISORIENTATION, 08/20/18) Past Medical History Medical History Depression, history of multiple previous drug overdose, coronary artery disease, hypertension Surgical History Unable to obtained Family History Significant Family History: No pertinent family hx Social History * Smoker: other (, unable doctor and history) Alcohol: other (unable to. Obtained history) Drugs: other (unable to obtain Hx) A-FIB/CHADSVASC A-FIB History Current/History of A-Fib/PAF?: No Review of Systems Constitutional: Reports: Other (unable to obtained review of system as patient is very agitated and code 25 was called to manage patient) Physical Examination General Exam: Positive: Other (unable to perform physical exam as patient is very agitated and hitting the staff and the medical record has been called to manage patient and transfer her to [facility]) Vital Signs As per [facility] Problems (1) Suicidal overdose Status: Resolved Problem Text: Patient has been transferred to [facility] for further psychiatric care Further orders as per psychiatry (2) Respiratory failure requiring intubation Status: Resolved Problem Text: Secondary drug OD, but that has resolved now Continue patient's home medications (3) HTN (hypertension) Status: Chronic Problem Text: Under well control Fany home meds (4) CAD (coronary artery disease) Status: Chronic Problem Text: Asymptomatic stable Continue home meds Plan / VTE VTE Prophylaxis Ordered?: No FAM SIMMS MD August 22, 2018 16:19
[2018-08-22] MEDS ORDERED: NICOTINE 21MG/24HR 1 EA TRANSDERMAL TD ONE (18:45)
[2018-08-22 20:00] VITALS: BP 97/46
[2018-08-22 20:45] VITALS: BP 113/55
[2018-08-22] MEDS ORDERED: ALBUTEROL 90 MCG/ACT 8GM HFA INHALER INH PRN (20:45)
[2018-08-22] MEDS: ACETAMINOPHEN TAB 650MG DOSE (2X325MG) PO PRN (21:18)
[2018-08-22] MEDS: ATORVASTATIN 20 MG TAB PO SCH (21:18)
--- NOTE | 2018-08-22 21:25 | IPNPDOC ---
Text Note Date of Service The patient was seen on 08/22/18. NOTE SUBJECTIVE: Patient is a 52-year-old white female, past medical history significant for recent overdose of Xanax, recently medically cleared and admitted to [facility] for further psychiatric management. Hospital see him was consulted regarding patient's elevated temperature 101.1 and hypotension. OBJECTIVE: Vitals: Temp: 101.1F, Pulse: 85 bpm, Resp: 16, BP: 113/55, O2 Sat: 91% on RA Gen.: Patient is interviewed and examined in her room and [facility]. Patient was found to be lying comfortably in bed, in no acute distress. Easily arousable, alert and oriented able to answer questions and accurate assessment of care. Cardiovascular: Regular rate and rhythm, normal S1 and S2, no murmurs Respiratory: Fair air movement, clear to auscultation bilaterally, no wheezes rales or rhonchi Abdomen: Soft, nontender, nondistended, obese PLAN: Rule out pneumonia -Patient satting at 91%, temperature of 101.1F -She was recently ventilated secondary to her Xanax overdose, consider pneumatic process -CBC with differential, Lactic and pro-calcitonin pending -Tylenol for fever -Chest x-ray, 2 views ordered -Augmentin for empiric treatment. -Continue to monitor clinically Hypotension -With a blood pressure of 113/55 -To monitor clinically CODE STATUS: Full Code VS,Fishbone, I+O VS, Fishbone, I+O Vital Signs Date Time Temp Pulse Resp B/P (MAP) Pulse Ox O2 Delivery O2 Flow Rate FiO2 08/22/18 20:00 100.4 86 16 97/46 (63) GME ATTESTATION GME ATTESTATION My faculty preceptor for this patient encounter was physically present during the encounter and was fully available. All aspects of the patient interview, ex amination, medical decision making process, and medical care plan development were reviewed and approved by the faculty preceptor. The faculty preceptor is aware and concurs with the plan as stated in the body of this note and will attest to such by his/her cosignature. ALDO SAMPSON DO August 22, 2018 21:25
[2018-08-22 21:28] LABS: BASO % 0.2 % (0.0-1.0); EOS # 0.1 10^3/uL (0.0-0.50); HEMATOCRIT 38.7 % (36.0-47.0); HEMOGLOBIN 12.5 g/dl (12.0-15.5); LYMPH # 2.1 10^3/uL (1.5-4.5); LYMPH % 18.5 % (24.0-44.0); MEAN CORPUSCULAR HEMOGLOBIN 30.1 pg (27.0-33.0); MEAN CORPUSCULAR HGB CONC 32.3 g/dl (32.0-36.5); MEAN CORPUSCULAR VOLUME 93.3 fl (80.0-96.0); MONO # 0.7 10^3/uL (0.0-0.8); MONO % 6.5 % (0.0-5.0); NEUTROPHILS # 8.3 10^3/uL (1.8-7.7); NEUTROPHILS % 73.3 % (36.0-66.0); PLATELET COUNT, AUTOMATED 295 10^3/uL (150-450); RED BLOOD COUNT 4.15 10^6/uL (4.00-5.40); WHITE BLOOD COUNT 11.3 10^3/uL (4.0-10.0)
--- NOTE | 2018-08-22 22:43 | REPVR ---
EXAM: XR Chest, 2 Views EXAM DATE/TIME: 08/22/2018 9:36 PM CLINICAL HISTORY: 52 years old, female; Signs and symptoms; Other: Fever; Additional info: Fever, history of vent TECHNIQUE: Imaging protocol: XR of the chest, 2 views. COMPARISON: CR PORTABLE CHEST X-RAY 08/22/2018 6:49 AM FINDINGS: Lungs: Bibasilar atelectasis. Infectious infiltrates not excluded. Pleural space: Unremarkable. No pleural effusion. No pneumothorax. Heart/Mediastinum: Unremarkable. No cardiomegaly. Bones/joints: Unremarkable. IMPRESSION: Bibasilar atelectasis. Infectious infiltrates not excluded. Electronically signed by: Kaushik Villalobos On 08/22/2018 22:43:06 PM
[2018-08-22 23:43] VITALS: BP 115/57
[2018-08-23] MEDS: AUGMENTIN 875 MG TAB PO SCH ×3 (00:24→23:08)
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
[2018-08-23 07:08] VITALS: BP 118/56
[2018-08-23] MEDS: CLOPIDOGREL 75 MG TAB PO SCH (09:58)
[2018-08-23] MEDS: NICOTINE 21MG/24HR 1 EA TRANSDERMAL TD SCH (09:58)
[2018-08-23] MEDS: ASPIRIN 81 MG ENTERIC TAB PO SCH (09:58)
[2018-08-23 13:03] LABS: BASO % 0.4 % (0.0-1.0); EOS # 0.3 10^3/uL (0.0-0.50); EOS % 2.9 % (0.0-3.0); HEMATOCRIT 41.5 % (36.0-47.0); HEMOGLOBIN 13.2 g/dl (12.0-15.5); LYMPH # 2.3 10^3/uL (1.5-4.5); LYMPH % 22.6 % (24.0-44.0); MEAN CORPUSCULAR HEMOGLOBIN 29.3 pg (27.0-33.0); MEAN CORPUSCULAR HGB CONC 31.8 g/dl (32.0-36.5); MONO # 0.6 10^3/uL (0.0-0.8); NEUTROPHILS # 6.8 10^3/uL (1.8-7.7); NEUTROPHILS % 67.6 % (36.0-66.0); PLATELET COUNT, AUTOMATED 320 10^3/uL (150-450); RED BLOOD COUNT 4.51 10^6/uL (4.00-5.40)
[2018-08-23 13:32] LABS: ALBUMIN 3.3 GM/DL (3.2-5.2); ALT/SGPT 21 U/L (12-78); BILIRUBIN,TOTAL 0.5 MG/DL (0.2-1.0); BLOOD UREA NITROGEN 13 MG/DL (7-18); CALCIUM LEVEL 9.6 MG/DL (8.5-10.1); CARBON DIOXIDE LEVEL 28 MEQ/L (21-32); CHLORIDE LEVEL 107 MEQ/L (98-107); CREATININE FOR GFR 0.86 MG/DL (0.55-1.30); GLOMERULAR FILTRATION RATE > 60.0 (>51); GLUCOSE, FASTING 84 MG/DL (70-100); POTASSIUM SERUM 4.3 MEQ/L (3.5-5.1); SODIUM LEVEL 141 MEQ/L (136-145); TOTAL PROTEIN 6.2 GM/DL (6.4-8.2)
[2018-08-23] MEDS: lamoTRIgine 100MG TAB PO SCH (17:39)
[2018-08-23 18:17] VITALS: BP 145/72
[2018-08-23] MEDS: guaiFENesin ER 600 MG TAB PO SCH (23:08)
[2018-08-23] MEDS: ATORVASTATIN 20 MG TAB PO SCH (23:09)
[2018-08-24 06:54] VITALS: BP 98/54
--- NOTE | 2018-08-24 06:57 | IPN ---
DATE OF SERVICE: 08/23/2018 This is a 52-year-old female who was transferred from the intensive care unit (ICU) after having been treated and stabilized having taken an overdose of Xanax. The hospitalists were consulted 08/22/2018 as patient had an elevated temperature and hypotension. A chest x-ray was done. CBC, lactic and procalcitonin were ordered. The patient was started on Augmentin. The patient has been afebrile today, this morning 98.3, this afternoon 97.9. White count was 11.3 yesterday and is 10 today. Hemoglobin 13.2, hematocrit 41.5 and platelets 320. Electrolytes are normal. BUN 13, creatinine 0.86. Procalcitonin is 0.13. Chest x-ray was done and showed bibasilar atelectasis, infectious infiltrates not excluded. The patient has a loose cough and is afebrile. White count is improving. OBJECTIVE: Blood pressure 118/56. Pulse 71. Respirations 14. Temperature 98.3. The patient is alert and oriented to person and place. Pharynx, tongue, gums pink and moist. Tongue is midline. Neck is supple, without lymphadenopathy. No thyromegaly. No goiter. Carotids 2+, without bruit. Chest has coarse breath sounds, scattered rhonchi that clear with cough. Heart: Regular. Abdomen: Benign. Bowel sounds positive. /Rectal: Not done. Peripheral pulses equal and palpable bilaterally. Skin is warm and dry. IMPRESSION AND PLAN: 1. Bibasilar atelectasis, infectious infiltrates cannot be ruled out. Calcitonin is normal. White count is improving. The patient is afebrile today. Will continue the Augmentin. Mucinex for the cough. Followup chest x-ray. Albuterol as needed shortness of breath. 2. History of hypertension. Stable. 3. History of hypercholesterolemia. Stable. 4. History of coronary artery disease. Stable. Continue other current medications without change. 5. Psychiatric. Plan per psychiatry.
[2018-08-24 07:39] LABS: BASO % 0.3 % (0.0-1.0); EOS # 0.5 10^3/uL (0.0-0.50); EOS % 5.2 % (0.0-3.0); HEMATOCRIT 40.5 % (36.0-47.0); HEMOGLOBIN 12.8 g/dl (12.0-15.5); LYMPH % 21.4 % (24.0-44.0); MEAN CORPUSCULAR HEMOGLOBIN 28.9 pg (27.0-33.0); MEAN CORPUSCULAR HGB CONC 31.6 g/dl (32.0-36.5); MEAN CORPUSCULAR VOLUME 91.4 fl (80.0-96.0); MONO # 0.6 10^3/uL (0.0-0.8); MONO % 6.5 % (0.0-5.0); NEUTROPHILS # 6.1 10^3/uL (1.8-7.7); NEUTROPHILS % 66.2 % (36.0-66.0); PLATELET COUNT, AUTOMATED 320 10^3/uL (150-450); RED BLOOD COUNT 4.43 10^6/uL (4.00-5.40); WHITE BLOOD COUNT 9.2 10^3/uL (4.0-10.0)
[2018-08-24 07:57] LABS: ALBUMIN 2.9 GM/DL (3.2-5.2); ALT/SGPT 21 U/L (12-78); BILIRUBIN,TOTAL 0.4 MG/DL (0.2-1.0); BLOOD UREA NITROGEN 14 MG/DL (7-18); CALCIUM LEVEL 8.8 MG/DL (8.5-10.1); CARBON DIOXIDE LEVEL 27 MEQ/L (21-32); CHLORIDE LEVEL 109 MEQ/L (98-107); CREATININE FOR GFR 0.86 MG/DL (0.55-1.30); GLOMERULAR FILTRATION RATE > 60.0 (>51); GLUCOSE, FASTING 93 MG/DL (70-100); POTASSIUM SERUM 4.5 MEQ/L (3.5-5.1); SODIUM LEVEL 142 MEQ/L (136-145)
[2018-08-24] MEDS: CLOPIDOGREL 75 MG TAB PO SCH (09:17)
[2018-08-24] MEDS: ASPIRIN 81 MG ENTERIC TAB PO SCH (09:17)
[2018-08-24] MEDS: AUGMENTIN 875 MG TAB PO SCH ×2 (09:17→21:24)
[2018-08-24] MEDS: guaiFENesin ER 600 MG TAB PO SCH ×2 (09:17→21:24)
[2018-08-24] MEDS: NICOTINE 21MG/24HR 1 EA TRANSDERMAL TD SCH (09:17)
[2018-08-24] MEDS: lamoTRIgine 100MG TAB PO SCH (09:17)
--- NOTE | 2018-08-24 11:08 | MHIPNPDOC ---
[facility] Progress Note Progress Note DATE OF SERVICE: 08/24/18 HISTORY: Adela Polo overdosed on a significant amount of Xanax and was admitted to our unit. She has had a previous admission Some years ago. Patient stated to me that she had been sober for many years. Apparently began drinking recently , which contributed to her deciding to overdose. She states she hears voices and sees monsters and it is controlled by Xanax and Lamictal. She is coughing today, which is being treated with antibiotics and has some blood clots on her arm from her IVs , which she tore out in the ICU. Nurse practitioner, has been notified VITAL SIGNS: See below. NEW TEST RESULTS:. None. CURRENT MEDICATIONS: See below. MENTAL STATUS EXAMINATION: Patient is a 52-year old female, who is, groggy, and coughing. Speech: Is slightly slurred. Language skills are intact. Thought processes including:. Complaints of voices and monsters but did not presently. Thought content: As above. Abstract reasoning, and computation:. Abstraction is weak. Description of associations:. No loose associations. Description of abnormal or psychotic thoughts: As above. Judgment:, Poor. Insight:, Poor. Orientation: Intact 3. Recent and remote memory:. Intact. Attention span and concentration: Poor. Language: As above. Fund of knowledge:. Intact. Mood: Low. Affect: Groggy. DIAGNOSES: 1. Depression. 2., Alcohol abuse. 3., Rule out psychotic thought. ASSESSMENT: 52-year-old female overdosed on Xanax while she was drinking, but the use of Xanax and Lamictal as an outpatient. Does not seem to match with her stated symptoms MANAGEMENT PLAN: May choose to contact Dr. Boo and [place] [facility] [place] In addition. TIME SPENT:, 30 minutes. Vital Signs Vital Signs Date Time Temp Pulse Resp B/P (MAP) Pulse Ox O2 Delivery O2 Flow Rate FiO2 08/24/18 06:54 97.8 65 12 98/54 (69) 08/22/18 23:43 88 Laboratory Data 24H Labs Laboratory Tests 2 08/23/18 12:40: Immature Granulocyte % (Auto) 0.5, White Blood Count 10.0, Red Blood Count 4.51, Hemoglobin 13.2, Hematocrit 41.5, Mean Corpuscular Volume 92.0, Mean Corpuscular Hemoglobin 29.3, Mean Corpuscular Hemoglobin Concent 31.8L, Red Cell Distribution Width 14.6H, Platelet Count 320, Neutrophils (%) (Auto) 67.6H, Lymphocytes (%) (Auto) 22.6L, Monocytes (%) (Auto) 6.0H, Eosinophils (%) (Auto) 2.9, Basophils (%) (Auto) 0.4, Neutrophils # (Auto) 6.8, Lymphocytes # (Auto) 2.3, Monocytes # (Auto) 0.6, Eosinophils # (Auto) 0.3, Basophils # (Auto) 0.0, Nucleated Red Blood Cells % (auto) 0.0, Anion Gap 6L, Glomerular Filtration Rate > 60.0, Blood Urea Nitrogen 13, Creatinine 0.86, Sodium Level 141, Potassium Level 4.3, Chloride Level 107, Carbon Dioxide Level 28, Calcium Level 9.6, Aspartate Amino Transf (AST/SGOT) 18, Alanine Aminotransferase (ALT/SGPT) 21, Alkaline Phosphatase 123H, Total Bilirubin 0.5, Total Protein 6.2L, Albumin 3.3, Albumin/Globulin Ratio 1.14 08/24/18 07:06: Immature Granulocyte % (Auto) 0.4, White Blood Count 9.2, Red Blood Count 4.43, Hemoglobin 12.8, Hematocrit 40.5, Mean Corpuscular Volume 91.4, Mean Corpuscular Hemoglobin 28.9, Mean Corpuscular Hemoglobin Concent 31.6L, Red Cell Distribution Width 14.5, Platelet Count 320, Neutrophils (%) (Auto) 66.2H, Lymphocytes (%) (Auto) 21.4L, Monocytes (%) (Auto) 6.5H, Eosinophils (%) (Auto) 5.2H, Basophils (%) (Auto) 0.3, Neutrophils # (Auto) 6.1, Lymphocytes # (Auto) 2.0, Monocytes # (Auto) 0.6, Eosinophils # (Auto) 0.5, Basophils # (Auto) 0.0, Nucleated Red Blood Cells % (auto) 0.0, Anion Gap 6L, Glomerular Filtration Rate > 60.0, Blood Urea Nitrogen 14, Creatinine 0.86, Sodium Level 142, Potassium Level 4.5, Chloride Level 109H, Carbon Dioxide Level 27, Calcium Level 8.8, Aspartate Amino Transf (AST/SGOT) 13, Alanine Aminotransferase (ALT/SGPT) 21, Alkaline Phosphatase 124H, Total Bilirubin 0.4, Total Protein 6.0L, Albumin 2.9L, Albumin/Globulin Ratio 0.94L CBC/BMP Laboratory Tests 08/23/18 12:40 Red Blood Count 4.51, Mean Corpuscular Volume 92.0, Mean Corpuscular Hemoglobin 29.3, Mean Corpuscular Hemoglobin Concent 31.8 L, Red Cell Distribution Width 14.6 H, Neutrophils (%) (Auto) 67.6 H, Lymphocytes (%) (Auto) 22.6 L, Monocytes (%) (Auto) 6.0 H, Eosinophils (%) (Auto) 2.9, Basophils (%) (Auto) 0.4, Neutrophils # (Auto) 6.8, Lymphocytes # (Auto) 2.3, Monocytes # (Auto) 0.6, Eosinophils # (Auto) 0.3, Basophils # (Auto) 0.0, Calcium Level 9.6, Aspartate Amino Transf (AST/SGOT) 18, Alanine Aminotransferase (ALT/SGPT) 21, Alkaline Phosphatase 123 H, Total Bilirubin 0.5, Total Protein 6.2 L, Albumin 3.3 08/24/18 07:06 Red Blood Count 4.43, Mean Corpuscular Volume 91.4, Mean Corpuscular Hemoglobin 28.9, Mean Corpuscular Hemoglobin Concent 31.6 L, Red Cell Distribution Width 14.5, Neutrophils (%) (Auto) 66.2 H, Lymphocytes (%) (Auto) 21.4 L, Monocytes (%) (Auto) 6.5 H, Eosinophils (%) (Auto) 5.2 H, Basophils (%) (Auto) 0.3, Neutrophils # (Auto) 6.1, Lymphocytes # (Auto) 2.0, Monocytes # (Auto) 0.6, Eosinophils # (Auto) 0.5, Basophils # (Auto) 0.0, Calcium Level 8.8, Aspartate Amino Transf (AST/SGOT) 13, Alanine Aminotransferase (ALT/SGPT) 21, Alkaline Phosphatase 124 H, Total Bilirubin 0.4, Total Protein 6.0 L, Albumin 2.9 L Current Medications Current Medications Acetaminophen (Tylenol Tab) 650 mg Q6HP PRN PO HEADACHE or DISCOMFORT Last administered on 08/22/18 21:18; Start 08/22/18 at 15:45 Al Hydrox/Mg Hydrox/Simethicone (Mylanta) 30 ml Q4HP PRN PO HEARTBURN/IN DIGESTION; Start 08/22/18 at 15:45 Albuterol Sulfate (Proventil, Ventolin Hfa) 2 puff Q4H PRN INH SHORTNESS OF BREATH; Start 08/22/18 at 20:45 Amoxicillin/ Clavulanate Potassium (Augmentin) 875 mg BID PO Last administered on 08/24/18 09:17; Start 08/22/18 at 21:00 Aspirin (Ecotrin) 81 mg DAILY PO Last administered on 08/24/18 09:17; Start 08/23/18 at 09:00 Atorvastatin Calcium (Lipitor) 80 mg QHS PO Last administered on 08/23/18at 23:09; Start 08/22/18 at 21:00 Clopidogrel Bisulfate (PLAVix) 75 mg DAILY PO Last administered on 08/24/18at 09:17; Start 08/23/18 at 09:00 Guaifenesin (Mucinex Tab Er) 600 mg BID PO Last administered on 08/24/18 09:17; Start 08/23/18 at 21:00 Home Med (Med Rec Complete!) ASDIRECTED XX ; Start 08/22/18 at 19:30; Stop 08/22/18 at 19:30; Status DC Lamotrigine (LaMICtal) 200 mg DAILY PO Last administered on 08/24/18at 09:17; Start 08/23/18 at 09:00 Magnesium Hydroxide (Milk Of Magnesia) 30 ml DAILYPRN PRN PO CONSTIPATION; Start 08/22/18 at 15:45 Nicotine (Nicoderm Cq 21mg) 1 patch DAILY TD Last administered on 08/24/18at 09:17; Start 08/23/18 at 09:00 Olanzapine (ZyPREXA ZYDIS) 5 mg Q4HP PRN PO AGITATION; Start 08/22/18 at 15:45 Trazodone HCl (Desyrel) 50 mg QHSP PRN PO INSOMNIA; Start 08/22/18 at 15:45 Allergies Coded Allergies: oxcarbazepine (Verified Allergy, Mild, RASH, 08/20/18) risperidone (Verified Adverse Reaction, Intermediate, TACHYCARDIA, 08/20/18) Quinolones (Verified Adverse Reaction, Mild, RASH, 08/20/18) aripiprazole (Verified Adverse Reaction, Mild, NUMBNESS, 08/20/18) fluoxetine (Verified Adverse Reaction, Mild, BLOODY NOSE, 08/20/18) hydroxyzine (Verified Adverse Reaction, Mild, NUMBNESS, 08/20/18) ofloxacin (Verified Adverse Reaction, Mild, RASH, 08/20/18) quetiapine (Verified Adverse Reaction, Mild, DISORIENTATION, 08/20/18) LEXY ODELL MD August 24, 2018 11:08
[2018-08-24 19:28] VITALS: BP 144/89
[2018-08-24] MEDS: ATORVASTATIN 20 MG TAB PO SCH (21:24)
[2018-08-24] MEDS: ACETAMINOPHEN TAB 650MG DOSE (2X325MG) PO PRN (21:26)
[2018-08-25 07:19] VITALS: BP 122/60
[2018-08-25] MEDS: NICOTINE 21MG/24HR 1 EA TRANSDERMAL TD SCH (09:23)
[2018-08-25] MEDS: CLOPIDOGREL 75 MG TAB PO SCH (09:23)
[2018-08-25] MEDS: AUGMENTIN 875 MG TAB PO SCH ×2 (09:23→22:12)
[2018-08-25] MEDS: guaiFENesin ER 600 MG TAB PO SCH ×2 (09:23→22:11)
[2018-08-25] MEDS: ASPIRIN 81 MG ENTERIC TAB PO SCH (09:23)
[2018-08-25] MEDS: lamoTRIgine 100MG TAB PO SCH (09:23)
--- NOTE | 2018-08-25 11:06 | IPNPDOC ---
Subjective Date Seen The patient was seen on 08/25/18. Subjective Chief Complaint/HPI 52 year old female admitted to inpatient psychiatric unit post drug overdose for evaluation and management Events since last encounter Today she complains of sore throat, pain and swelling to right antecubital area IV site. Denies shortness of breath, chills, fever. complains of occasional cough Objective Physical Examination General Exam: Positive: Other (unable to perform physical exam as patient is very agitated and hitting the staff and the medical record has been called to manage patient and transfer her to MICU) Other physical findings GENERAL: obese SKIN : Warm, dry, induration and pain with palpation of right antecubital area. phlebitis present to what looks like prior IV site HEENT: Atraumatic, normocephalic, PERRL, moist mucous membrane CARDIOVASCULAR: Regular rate and rhythm, S1S2, no JVD, no edema, distal pulses + and palpable RESP: CTAB, no accessory muscle use noted ABDOMEN: BS+ non distended non tender MS: no joint deformities NEURO: Alert and oriented x 3, CN2-12 grossly intact PSYCH: no anxiety or agitation, appropriate mood and affect. Assessment /Plan Problems (1) Superficial phlebitis of arm Problem Text: -erythema and tenderness if localized. -patient is already on augmentin -warm soaks and monitoring (2) Pneumonitis Problem Text: -denies acute symptoms suggestive of infectious process -continue augmentin -albuterol as needed (3) Suicidal overdose Status: Resolved Problem Text: -evaluation and management by mental health team (4) Respiratory failure requiring intubation Status: Resolved Problem Text: -S/P intubation/extubation, ICU management (5) HTN (hypertension) Status: Chronic Problem Text: -controlled (6) CAD (coronary artery disease) Status: Chronic Problem Text: -currently has no complaints -continue statin, aspirin (7) DVT prophylaxis Problem Text: -frequently ambulating Plan/VTE VTE Prophylaxis Ordered?: No VS, I&O, 24H, Fishbone Vital Signs/I&O Vital Signs Date Time Temp Pulse Resp B/P (MAP) Pulse Ox O2 Delivery O2 Flow Rate FiO2 08/25/18 07:19 98.2 63 14 122/60 (80) 08/22/18 23:43 88 NIRMALA ELLSWORTH August 25, 2018 11:06
[2018-08-25] MEDS: ACETAMINOPHEN TAB 650MG DOSE (2X325MG) PO PRN ×2 (11:27→22:12)
--- NOTE | 2018-08-25 15:44 | MHIPNPDOC ---
[facility] Progress Note Progress Note DATE OF SERVICE: 08/25/18 HISTORY: Patient drank and her loneliness lead her to make this suicidal gesture. She has got numerous medical concerns. Hernia, possible bronchitis and severe bruising where she pulled out her IV VITAL SIGNS: See below. NEW TEST RESULTS: None. CURRENT MEDICATIONS: See below. 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 She is not presently suicidal and would like to be discharged Speech: Is. Normal. Language skills are intact. Thought processes including: No gross abnormality. Thought content: Focused on her loneliness. Abstract reasoning, and computation: Able to abstract. Description of associations: Loose associations. Description of abnormal or psychotic thoughts:, No psychotic thought. Judgment: Fair. Insight:, Limited. Orientation: Intact 3. Recent and remote memory:. Intact. Attention span and concentration:. No gross abnormality. Language:, Intact. Fund of knowledge: Complete. Mood: Improved. Affect:, Congruent. DIAGNOSES: 1. Adjustment disorder with depressed mood. 2., Relapse of alcoholism. 3., Stressors of loneliness. ASSESSMENT: Above MANAGEMENT PLAN:. As per Dr De Leon. TIME SPENT: 30 minutes. Vital Signs Vital Signs Date Time Temp Pulse Resp B/P (MAP) Pulse Ox O2 Delivery O2 Flow Rate FiO2 08/25/18 07:19 98.2 63 14 122/60 (80) 08/22/18 23:43 88 Current Medications Current Medications Acetaminophen (Tylenol Tab) 650 mg Q6HP PRN PO HEADACHE or DISCOMFORT Last administered on 08/25/18at 11:27; Start 08/22/18 at 15:45 Al Hydrox/Mg Hydrox/Simethicone (Mylanta) 30 ml Q4HP PRN PO HEARTBURN/INDIGESTION; Start 08/22/18 at 15:45 Albuterol Sulfate (Proventil, Ventolin Hfa) 2 puff Q4H PRN INH SHORTNESS OF BREATH; Start 08/22/18 at 20:45 Amoxicillin/ Clavulanate Potassium (Augmentin) 875 mg BID PO Last administered on 08/25/18at 09:23; Start 08/22/18 at 21:00 Aspirin (Ecotrin) 81 mg DAILY PO Last administered on 08/25/18at 09:23; Start 08/23/18 at 09:00 Atorvastatin Calcium (Lipitor) 80 mg QHS PO Last administered on 08/24/18 21:24; Start 08/22/18 at 21:00 Clopidogrel Bisulfate (PLAVix) 75 mg DAILY PO Last administered on 08/25/18 09:23; Start 08/23/18 at 09:00 Guaifenesin (Mucinex Tab Er) 600 mg BID PO Last administered on 08/25/18 09:23; Start 08/23/18 at 21:00 Home Med (Med Rec Complete!) ASDIRECTED XX ; Start 08/22/18 at 19:30; Stop 08/22/18 at 19:30; Status DC Lamotrigine (LaMICtal) 200 mg DAILY PO Last administered on 08/25/18 09:23; Start 08/23/18 at 09:00 Magnesium Hydroxide (Milk Of Magnesia) 30 ml DAILYPRN PRN PO CONSTIPATION; Start 08/22/18 at 15:45 Nicotine (Nicoderm Cq 21mg) 1 patch DAILY TD Last administered on 08/25/18 09:23; Start 08/23/18 at 09:00 Olanzapine (ZyPREXA ZYDIS) 5 mg Q4HP PRN PO AGITATION; Start 08/22/18 at 15:45 Trazodone HCl (Desyrel) 50 mg QHSP PRN PO INSOMNIA; Start 08/22/18 at 15:45 Allergies Coded Allergies: oxcarbazepine (Verified Allergy, Mild, RASH, 08/20/18) risperidone (Verified Adverse Reaction, Intermediate, TACHYCARDIA, 08/20/18) Quinolones (Verified Adverse Reaction, Mild, RASH, 08/20/18) aripiprazole (Verified Adverse Reaction, Mild, NUMBNESS, 08/20/18) fluoxetine (Verified Adverse Reaction, Mild, BLOODY NOSE, 08/20/18) hydroxyzine (Verified Adverse Reaction, Mild, NUMBNESS, 08/20/18) ofloxacin (Verified Adverse Reaction, Mild, RASH, 08/20/18) quetiapine (Verified Adverse Reaction, Mild, DISORIENTATION, 08/20/18) LEXY ODELL MD August 25, 2018 15:44
[2018-08-25 19:07] VITALS: BP 131/77
[2018-08-25] MEDS: ATORVASTATIN 20 MG TAB PO SCH (22:11)
[2018-08-26 06:56] VITALS: BP 110/55
[2018-08-26] MEDS: lamoTRIgine 100MG TAB PO SCH (08:30)
[2018-08-26] MEDS: guaiFENesin ER 600 MG TAB PO SCH ×3 (08:30→21:20)
[2018-08-26] MEDS: NICOTINE 21MG/24HR 1 EA TRANSDERMAL TD SCH (08:30)
[2018-08-26] MEDS: CLOPIDOGREL 75 MG TAB PO SCH (08:30)
[2018-08-26] MEDS: AUGMENTIN 875 MG TAB PO SCH ×3 (08:30→21:20)
[2018-08-26] MEDS: ASPIRIN 81 MG ENTERIC TAB PO SCH (08:30)
--- NOTE | 2018-08-26 12:35 | IPNPDOC ---
Subjective Date Seen The patient was seen on 08/26/18. Subjective Chief Complaint/HPI 52 year old female admitted to inpatient psychiatric unit post drug overdose for evaluation and management Events since last encounter Pain to right AC joint is better today. was usuing the heat compress about 5 times yesterday. Sore throat is also better Objective Physical Examination General Exam: Positive: Other (unable to perform physical exam as patient is very agitated and hitting the staff and the medical record has been called to manage patient and transfer her to MICU) Other physical findings GENERAL: obese female in no acute distress SKIN : Warm, dry, phlebitis present to right AC joint. tenderness with palpation intact HEENT: Atraumatic, normocephalic, PERRL, moist mucous membrane CARDIOVASCULAR: Regular rate and rhythm, S1S2, no JVD, no edema, distal pulses + and palpable RESP: CTAB, no accessory muscle use noted ABDOMEN: BS+ non distended non tender MS: no joint deformities NEURO: Alert and oriented x 3, CN2-12 grossly intact PSYCH: no anxiety or agitation, appropriate mood and affect. Assessment /Plan Problems (1) Superficial phlebitis of arm Problem Text: -erythema and tenderness is localized. -patient is already on augmentin -continue warm soaks and monitoring (2) Pneumonitis Problem Text: -denies acute symptoms suggestive of infectious process -continue augmentin -albuterol as needed (3) Suicidal overdose Status: Resolved Problem Text: -evaluation and management by mental health team (4) Respiratory failure requiring intubation Status: Resolved Problem Text: -S/P intubation/extubation, ICU management (5) HTN (hypertension) Status: Chronic Problem Text: -controlled (6) CAD (coronary artery disease) Status: Chronic Problem Text: -currently has no complaints -continue statin, aspirin (7) DVT prophylaxis Problem Text: -frequently ambulating Plan/VTE VTE Prophylaxis Ordered?: No VS, I&O, 24H, Fishbone Vital Signs/I&O Vital Signs Date Time Temp Pulse Resp B/P (MAP) Pulse Ox O2 Delivery O2 Flow Rate FiO2 08/26/18 06:56 98.4 71 18 110/55 (73) 08/22/18 23:43 88 NIRMALA ELLSWORTH August 26, 2018 12:35
[2018-08-26] MEDS ORDERED: GABAPENTIN 300 MG CAP PO STA (13:27)
[2018-08-26] MEDS: GABAPENTIN 300 MG CAP PO SCH ×2 (16:22→21:00)
[2018-08-26 18:04] VITALS: BP 125/61
--- NOTE | 2018-08-26 20:21 | MHIPNPDOC ---
[facility] Progress Note Progress Note DATE OF SERVICE: 08/26/18 HISTORY: As per hospitalist report, the patient was admitted to the Medical Floor because: "I was called to the emergency room to attend Adela Polo. In essence, this is a 52-year-old female with previous psychiatric history, as well as previous drug overdoses, depression, alcohol, tobacco abuse, previous non ST myocardial infarction. Reportedly, she called emergency medical services (EMS) saying she took 30 to 40 Xanax. She walked out to the ambulance and then became with altered mental status, intubated here in the emergency room for altered consciousness and inability to protect her airway. Initially treated with propofol, was somewhat hypotensive. Currently on a propofol drip at a low dose.She intermittently bucks the ventilator". VITAL SIGNS: See below. NEW TEST RESULTS: None. CURRENT MEDICATIONS: See below. MENTAL STATUS EXAMINATION: Patient is a 52-year old female, who is dressed in hospital clothes, disheveled, unkempt Speech: Is. Normal. Language skills are intact. Thought processes including: linear, coherent Thought content: Focused on getting Xanax once again because she says that medication "makes her feel good in her mind because it's always very noisy in there and this medications calms me" Abstract reasoning, and computation: Able to abstract. Description of associations: good Description of abnormal or psychotic thoughts: Denies psychosis, denies SI, denies HI Judgment: Fair. Insight:, Limited. Orientation: Intact 3. Recent and remote memory:. Intact. Attention span and concentration:. No gross abnormality. Language:, Intact. Fund of knowledge: Complete. Mood: Improved. Affect:, Congruent. DIAGNOSES: 1. Adjustment disorder with depressed mood. 2., Relapse of alcoholism. 3., Stressors of loneliness. ASSESSMENT: The patient requested to be started on Xanax even when she recently overdosed on that medication. I did talk to her about Gabapentin, because it would help her with anxiety and this medication is being used for people who have alcohol problems. She said she used it when she was in Rehab. She was pleasant and cooperative, she adamantly denies a recent suicide attempts, she says she didn't overdose to kill herself, not to get "high". MANAGEMENT PLAN: Will start Gabapentin 300 mgs PO TID TIME SPENT: 20 minutes. Vital Signs Vital Signs Date Time Temp Pulse Resp B/P (MAP) Pulse Ox O2 Delivery O2 Flow Rate FiO2 08/26/18 18:04 98.5 69 18 125/61 (82) 08/22/18 23:43 88 Current Medications Current Medications Acetaminophen (Tylenol Tab) 650 mg Q6HP PRN PO HEADACHE or DISCOMFORT Last administered on 08/25/18 22:12; Start 08/22/18 at 15:45 Al Hydrox/Mg Hydrox/Simethicone (Mylanta) 30 ml Q4HP PRN PO HEARTBURN/INDIGESTION; Start 08/22/18 at 15:45 Albuterol Sulfate (Proventil, Ventolin Hfa) 2 puff Q4H PRN INH SHORTNESS OF BREATH; Start 08/22/18 at 20:45 Amoxicillin/ Clavulanate Potassium (Augmentin) 875 mg BID PO Last administered on 08/26/18 08:30; Start 08/22/18 at 21:00 Aspirin (Ecotrin) 81 mg DAILY PO Last administered on 08/26/18 08:30; Start 08/23/18 at 09:00 Atorvastatin Calcium (Lipitor) 80 mg QHS PO Last administered on 08/25/18 22:11; Start 08/22/18 at 21:00 Clopidogrel Bisulfate (PLAVix) 75 mg DAILY PO Last administered on 08/26/18 08:30; Start 08/23/18 at 09:00 Gabapentin (Neurontin) 300 mg STAT STAT PO Last administered on 08/26/18 13:41; Start 08/26/18 at 13:27; Stop 08/26/18 at 13:28; Status DC Gabapentin (Neurontin) 300 mg TID PO Last administered on 08/26/18 16:22; Start 08/26/18 at 16:00 Guaifenesin (Mucinex Tab Er) 600 mg BID PO Last administered on 08/26/18 08:30; Start 08/23/18 at 21:00 Home Med (Med Rec Complete!) ASDIRECTED XX ; Start 08/22/18 at 19:30; Stop 08/22/18 at 19:30; Status DC Lamotrigine (LaMICtal) 200 mg DAILY PO Last administered on 08/26/18 08:30; Start 08/23/18 at 09:00 Magnesium Hydroxide (Milk Of Magnesia) 30 ml DAILYPRN PRN PO CONSTIPATION; Start 08/22/18 at 15:45 Nicotine (Nicoderm Cq 21mg) 1 patch DAILY TD Last administered on 08/26/18 08:30; Start 08/23/18 at 09:00 Olanzapine (ZyPREXA ZYDIS) 5 mg Q4HP PRN PO AGITATION Last administered on 08/25/18 23:14; Start 08/22/18 at 15:45 Trazodone HCl (Desyrel) 50 mg QHSP PRN PO INSOMNIA Last administered on 08/25/18 22:12; Start 08/22/18 at 15:45 Allergies Coded Allergies: oxcarbazepine (Verified Allergy, Mild, RASH, 08/20/18) risperidone (Verified Adverse Reaction, Intermediate, TACHYCARDIA, 08/20/18) Quinolones (Verified Adverse Reaction, Mild, RASH, 08/20/18) aripiprazole (Verified Adverse Reaction, Mild, NUMBNESS, 08/20/18) fluoxetine (Verified Adverse Reaction, Mild, BLOODY NOSE, 08/20/18) hydroxyzine (Verified Adverse Reaction, Mild, NUMBNESS, 08/20/18) ofloxacin (Verified Adverse Reaction, Mild, RASH, 08/20/18) quetiapine (Verified Adverse Reaction, Mild, DISORIENTATION, 08/20/18) KASSIDY LEWIS MD August 26, 2018 20:07
[2018-08-26] MEDS: ATORVASTATIN 20 MG TAB PO SCH (21:00)
[2018-08-27 06:31] VITALS: BP 125/58
[2018-08-27] MEDS: CLOPIDOGREL 75 MG TAB PO SCH (08:39)
[2018-08-27] MEDS: NICOTINE 21MG/24HR 1 EA TRANSDERMAL TD SCH (08:39)
[2018-08-27] MEDS: ASPIRIN 81 MG ENTERIC TAB PO SCH (08:39)
[2018-08-27] MEDS: lamoTRIgine 100MG TAB PO SCH (08:39)
[2018-08-27] MEDS: GABAPENTIN 300 MG CAP PO SCH ×3 (08:41→21:00)
[2018-08-27] MEDS: guaiFENesin ER 600 MG TAB PO SCH ×2 (08:41→20:17)
[2018-08-27] MEDS: AUGMENTIN 875 MG TAB PO SCH ×2 (08:41→20:17)
--- NOTE | 2018-08-27 12:58 | IPNPDOC ---
Subjective Date Seen The patient was seen on 08/27/18. Subjective Chief Complaint/HPI 52 year old female admitted to inpatient psychiatric unit post drug overdose for evaluation and management Events since last encounter Patient reports improvement to right AC phlebitis. Has been applying warm c ompress as ordered. Denies chills, fever Objective Physical Examination Other physical findings GENERAL: obese female in no acute distress SKIN : Warm, dry, resolving phlebitis present to right AC joint. tenderness with palpation HEENT: Atraumatic, normocephalic, PERRL, moist mucous membrane CARDIOVASCULAR: Regular rate and rhythm, S1S2, no JVD, no edema, distal pulses + and palpable RESP: CTAB, no accessory muscle use noted ABDOMEN: BS+ non distended non tender MS: no joint deformities NEURO: Alert and oriented x 3, CN2-12 grossly intact PSYCH: no anxiety or agitation, appropriate mood and affect. Assessment /Plan Problems (1) HTN (hypertension) Status: Chronic Problem Text: -controlled (2) Superficial phlebitis of arm Problem Text: -resolving erythema and tenderness remains localized. -continue augmentin -continue warm soaks and monitoring (3) Pneumonitis Problem Text: -S/P intubation/extubation for respiratory failure -denies acute symptoms suggestive of infectious process -continue augmentin, albuterol as needed (4) Respiratory failure requiring intubation Status: Resolved Problem Text: -S/P intubation/extubation, ICU management (5) Suicidal overdose Status: Resolved Problem Text: -evaluation and management by mental health team (6) CAD (coronary artery disease) Status: Chronic Problem Text: -currently has no complaints -continue statin, aspirin (7) DVT prophylaxis Problem Text: -frequently ambulating Plan/VTE VTE Prophylaxis Ordered?: No VS, I&O, 24H, Fishbone Vital Signs/I&O Vital Signs Date Time Temp Pulse Resp B/P (MAP) Pulse Ox O2 Delivery O2 Flow Rate FiO2 08/27/18 06:31 98.5 72 18 125/58 (80) 08/22/18 23:43 88 NIRMALA ELLSWORTH [employer]GRAM MANAGEMENT INTERN August 27, 2018 12:58
[2018-08-27 18:00] VITALS: BP 150/89
--- NOTE | 2018-08-27 19:26 | MHIPNPDOC ---
[facility] Progress Note Progress Note DATE OF SERVICE: 08/27/18 HISTORY: As per hospitalist report, the patient was admitted to the Medical Floor because: "I was called to the emergency room to attend Adela Polo. In essence, this is a 52-year-old female with previous psychiatric history, as well as previous drug overdoses, depression, alcohol, tobacco abuse, previous non ST myocardial infarction. Reportedly, she called emergency medical services (EMS) saying she took 30 to 40 Xanax. She walked out to the ambulance and then became with altered mental status, intubated here in the emergency room for altered consciousness and inability to protect her airway. Initially treated with propofol, was somewhat hypotensive. Currently on a propofol drip at a low dose.She intermittently bucks the ventilator". VITAL SIGNS: See below. NEW TEST RESULTS: None. CURRENT MEDICATIONS: See below. MENTAL STATUS EXAMINATION: Patient is a 52-year old female, who is dressed in hospital clothes, disheveled, unkempt Speech: Is. Normal. Language skills are intact. Thought processes including: linear, coherent Thought content: Goal directed, she wants to go to Worship when she gets discharged and wants to go to some gatherings, including those directed to substance abusers, because she realizes she feels lonely Abstract reasoning, and computation: fair Description of associations: good Description of abnormal or psychotic thoughts: Denies psychosis, denies SI, denies HI but admits to obsessive thoughts, voices "that are loud in my head, they are pobably mine, but I haven't been able to turn them off" Judgment: Fair. Insight:, Limited. Orientation: Intact 3. Recent and remote memory:. Intact. Attention span and concentration:. good Language: Average Fund of knowledge: Average Mood: Anxious, depressed Affect: anxious, depressed DIAGNOSES: 1. Adjustment disorder with depressed mood. 2., Relapse of alcoholism. 3., Stressors of loneliness. ASSESSMENT: The patient was found sleeping in her bedroom. she says she has tried to remain isolated to not cause problems and she says she feels better like that. she says she is trying her better to process her problems and she has trying to block her anxiety and her depression. 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 She says she is not having suicidal thoughts but her thoughts are still "loud in my head" and "I need to calm down a little more." MANAGEMENT PLAN: Will start Gabapentin 300 mgs PO TID TIME SPENT: 20 minutes. Vital Signs Vital Signs Date Time Temp Pulse Resp B/P (MAP) Pulse Ox O2 Delivery O2 Flow Rate FiO2 08/27/18 18:00 99.1 88 16 150/89 (109) 08/22/18 23:43 88 Current Medications Current Medications Acetaminophen (Tylenol Tab) 650 mg Q6HP PRN PO HEADACHE or DISCOMFORT Last administered on 08/25/18 22:12; Start 08/22/18 at 15:45 Al Hydrox/Mg Hydrox/Simethicone (Mylanta) 30 ml Q4HP PRN PO HEARTBURN/INDIGESTION; Start 08/22/18 at 15:45 Albuterol Sulfate (Proventil, Ventolin Hfa) 2 puff Q4H PRN INH SHORTNESS OF BREATH; Start 08/22/18 at 20:45 Amoxicillin/ Clavulanate Potassium (Augmentin) 875 mg BID PO Last administered on 08/26/18 21:20; Start 08/22/18 at 21:00 Aspirin (Ecotrin) 81 mg DAILY PO Last administered on 08/27/18 08:39; Start 08/23/18 at 09:00 Atorvastatin Calcium (Lipitor) 80 mg QHS PO Last administered on 08/25/18at 22:11; Start 08/22/18 at 21:00 Clopidogrel Bisulfate (PLAVix) 75 mg DAILY PO Last administered on 08/27/18at 08:39; Start 08/23/18 at 09:00 Gabapentin (Neurontin) 300 mg STAT STAT PO Last administered on 08/26/18 13:41; Start 08/26/18 at 13:27; Stop 08/26/18 at 13:28; Status DC Gabapentin (Neurontin) 300 mg TID PO Last administered on 08/26/18 16:22; Start 08/26/18 at 16:00 Guaifenesin (Mucinex Tab Er) 600 mg BID PO Last administered on 08/26/18 21:20; Start 08/23/18 at 21:00 Home Med (Med Rec Complete!) ASDIRECTED XX ; Start 08/22/18 at 19:30; Stop 08/22/18 at 19:30; Status DC Lamotrigine (LaMICtal) 200 mg DAILY PO Last administered on 08/27/18 08:39; Start 08/23/18 at 09:00 Magnesium Hydroxide (Milk Of Magnesia) 30 ml DAILYPRN PRN PO CONSTIPATION; Start 08/22/18 at 15:45 Nicotine (Nicoderm Cq 21mg) 1 patch DAILY TD Last administered on 08/27/18at 08:39; Start 08/23/18 at 09:00 Olanzapine (ZyPREXA ZYDIS) 5 mg Q4HP PRN PO AGITATION Last administered on 08/25/18 23:14; Start 08/22/18 at 15:45 Trazodone HCl (Desyrel) 50 mg QHSP PRN PO INSOMNIA Last administered on 08/25/18 22:12; Start 08/22/18 at 15:45 Allergies Coded Allergies: oxcarbazepine (Verified Allergy, Mild, RASH, 08/20/18) risperidone (Verified Adverse Reaction, Intermediate, TACHYCARDIA, 08/20/18) Quinolones (Verified Adverse Reaction, Mild, RASH, 08/20/18) aripiprazole (Verified Adverse Reaction, Mild, NUMBNESS, 08/20/18) fluoxetine (Verified Adverse Reaction, Mild, BLOODY NOSE, 08/20/18) hydroxyzine (Verified Adverse Reaction, Mild, NUMBNESS, 08/20/18) ofloxacin (Verified Adverse Reaction, Mild, RASH, 08/20/18) quetiapine (Verified Adverse Reaction, Mild, DISORIENTATION, 08/20/18) KASSIDY LEWIS MD August 27, 2018 19:26
[2018-08-27] MEDS: ATORVASTATIN 20 MG TAB PO SCH (21:00)
[2018-08-27] MEDS ORDERED: CEPACOL LOZENGE PO PRN (23:00)
[2018-08-28 06:31] VITALS: BP 121/58
[2018-08-28] MEDS: ASPIRIN 81 MG ENTERIC TAB PO SCH (08:37)
[2018-08-28] MEDS: CLOPIDOGREL 75 MG TAB PO SCH (08:37)
[2018-08-28] MEDS: NICOTINE 21MG/24HR 1 EA TRANSDERMAL TD SCH (08:37)
[2018-08-28] MEDS: guaiFENesin ER 600 MG TAB PO SCH (08:37)
[2018-08-28] MEDS: AUGMENTIN 875 MG TAB PO SCH (08:37)
[2018-08-28] MEDS: lamoTRIgine 100MG TAB PO SCH (08:37)
[2018-08-28] MEDS: GABAPENTIN 300 MG CAP PO SCH (08:38)
[2018-08-28] MEDS ORDERED: VENTAER INH (11:24)
[2018-08-28] MEDS ORDERED: LAMO200T2 PO (11:24)
[2018-08-28] MEDS ORDERED: GABA-843 PO (11:24)
[2018-08-28] MEDS ORDERED: ASPI-161 PO (11:24)
[2018-08-28] MEDS ORDERED: NICO21PAT TD (11:24)
[2018-08-28] MEDS ORDERED: MUCI600T31 PO (11:24)
[2018-08-28] MEDS ORDERED: ATOR80TA59 PO (11:24)
[2018-08-28] MEDS ORDERED: TRAZO50TA PO (11:24)
[2018-08-28] MEDS ORDERED: CLOP75TA2 PO (11:24)
[2018-08-28] MEDS ORDERED: AMOX875T2 PO (11:49)
--- NOTE | 2018-08-31 18:07 | MHDSPDOC ---
[facility] Discharge Summary Discharge Summary DATE OF ADMISSION: August 22, 2018 at 16:51 DATE OF DISCHARGE: August 28, 2018 at 14:13 DISCHARGE DIAGNOSES: 1. Major Depressive disorder, recurrent 2. HENRI 3. Obsessive Compulsive disorder 4. R/O borderline personality traits 5. H/o Polysubstance abuse REASON FOR ADMISSION: s per hospitalist report, the patient was admitted to the Medical Floor because: "I was called to the emergency room to attend Adela Polo. In essence, this is a 52-year-old female with previous psychiatric history, as well as previous drug overdoses, depression, alcohol, tobacco abuse, previous non ST myocardial infarction. Reportedly, she called emergency medical services (EMS) saying she took 30 to 40 Xanax. She walked out to the ambulance and then became with altered mental status, intubated here in the emergency room for altered consciousness and inability to protect her airway. Initially treated with propofol, was somewhat hypotensive. Currently on a propofol drip at a low dose. She intermittently bucks the ventilator". On 08/25/18, she reported to this television writer: After being hospitalized at the Medical Floor she was transferred to the [facility] at [facility] because she was depressed, anxious and had recently attempted suicida, although she adamantly denied attempting suicide, she said that that she was trying to calm her mind because "it gets very busy there and I can't disconnect from my thoughts". She mentioned that she had been going for several years to Dr. Boo because he knew that she had never abused Xanax and because he knew that she wa very anxious and has some OCD traits. 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 She had a cocaine and alcohol problem and had been in Rehab many times but she had been able to overcome those problems. She frequently gets upset (sad) because her children were taken away from her due to the above mentioned problems, she lives alone and feels lonely. she had a boyfriend until recently and they recently broke up because she realized he was not the best person to have in her live. CONSULTANTS INVOLVED: None TREATMENT AND PROGRESS ON THE UNIT : Please refer to the History of the Present Illness. HOSPITAL COURSE:The patient had an episode when she became agitated, shortly after being admitted. she reported this was secondary to being very anxious and having to listen to other patients who were agitated. She said she been in her room to avoid the presence of other patients or to become agitated her self because she didn't want to be "a problem". During our first meeting she really worked hard to convince me to give her Xanax but this television writer told her I couldn't prescribe her this medication because she had overdosed on it and because she had an addiction history. She agreed to take Gabapentin and she said when she had been in Rehab for alcohol abuse she had received this medication. She mentioned that she felt lonely, that she missed her children, who were already grown up. She felt guilty because she had contributed to losing them. She was cooperative although one night she was close to losing her temper but she was able to control herself. She had a good response to medications, her anxiety decreased and she started to make plans for the future, like writing more books, going to [employer] and going to AA/NA. DISCHARGE ASSESSMENT: At the time of her discharge the patient was not homicidal, not suicidal and not psychotic. she was future orientated and she never reported side effects, neither they were observed by staff members. MENTAL STATUS EXAMINATION ON DISCHARGE: Patient is a 52-year old female, who is dressed in hospital clothes, improved hygiene and grooming Speech: Is. Normal. Language skills are intact. Thought processes including: linear, coherent Thought content: Goal directed, she wants to go to [employer] when she gets discharged and wants to go to some gatherings, including those directed to substance abusers, she wants to continue writing a book that she left unfinished Abstract reasoning, and computation: fair Description of associations: good Description of abnormal or psychotic thoughts: Denies psychosis, denies SI, denies HI but admits to obsessive thoughts, voices "they are mine, but they are less intense and less frequent. I'm able to block them when I'm busy"" Judgment: Improved Insight: Improved Orientation: Intact 3. Recent and remote memory:. Intact. Attention span and concentration:. good Language: Average Fund of knowledge: Average Mood: Euthymic Affect: Congruent with mood, full, reactive, appropriate MEDICATIONS ON DISCHARGE: Scheduled Amoxicillin/Potassium Clav (Amox-Clav 875-125 mg Tablet) 1 Each Tablet, 875 MG PO BID for upper respiratory infection, #6 Aspirin (Aspirin EC) 81 Mg Tablet.dr, 81 MG PO DAILY for cardiovascular prevention, #7 Atorvastatin Calcium (Atorvastatin Calcium) 80 Mg Tablet, 80 MG PO QHS for hypercholesterolemia, #7 Clopidogrel Bisulfate (Clopidogrel) 75 Mg Tab, 75 MG PO DAILY for cardiovascular disease, #7 Gabapentin (Gabapentin) 300 Mg Capsule, 300 MG PO TID for mood, #21 Guaifenesin (Mucinex) 600 Mg Tab.er.12h, 600 MG PO BID for expectorant, #14 Lamotrigine (Lamotrigine) 200 Mg Tablet, 200 MG PO DAILY for mood, #7 Nicotine (Nicotine Patch) 21 Mg Patch.td24, 1 PATCH TD DAILY for nicotine cravings, #7 Scheduled PRN Albuterol Sulfate (Ventolin Hfa) 18 Gm Hfa.aer.ad, 2 PUFF INH Q4H PRN for SHOR TNESS OF BREATH, #1 Trazodone HCl (Trazodone HCl) 50 Mg Tablet, 50 MG PO QHSP PRN for INSOMNIA, #7 PLAN/FOLLOWUP ARRANGEMENTS: Follow Up Care Education Label * Mental Health Appt 1 * Mental [facility] * Established With This Provider Yes * Therapist SHAHANA * Date Sep 01, 2018 * Time 13:00 * Address of Clinic or Practice [address] [facility] [facility] * Follow Up Care Education Label * Mental Health Appt 2 * Mental [facility] * Established With This Provider Yes * Therapist DR. BOO * Date Sep 11, 2018 * Time 08:30 Follow Up Care Education Label * Medical * Medical Follow Up [facility] * Established With This Provider No * Therapist DR. HARRISON * Date Sep 11, 2018 * Time 14:00 * Address of Clinic or Practice [address] [place] [address] * The amount of time spent in the coordination of care for this patient was approximately 30 minutes. Vital Signs/I&Os Vital Signs Date Time Temp Pulse Resp B/P (MAP) Pulse Ox O2 Delivery O2 Flow Rate FiO2 08/28/18 06:31 98.6 65 16 121/58 (79) Medications Scheduled Amoxicillin/Potassium Clav (Amox-Clav 875-125 mg Tablet) 1 Each Tablet, 875 MG PO BID for upper respiratory infection, #6 Aspirin (Aspirin EC) 81 Mg Tablet.dr, 81 MG PO DAILY for cardiovascular prevention, #7 Atorvastatin Calcium (Atorvastatin Calcium) 80 Mg Tablet, 80 MG PO QHS for hypercholesterolemia, #7 Clopidogrel Bisulfate (Clopidogrel) 75 Mg Tab, 75 MG PO DAILY for cardiovascular disease, #7 Gabapentin (Gabapentin) 300 Mg Capsule, 300 MG PO TID for mood, #21 Guaifenesin (Mucinex) 600 Mg Tab.er.12h, 600 MG PO BID for expectorant, #14 Lamotrigine (Lamotrigine) 200 Mg Tablet, 200 MG PO DAILY for mood, #7 Nicotine (Nicotine Patch) 21 Mg Patch.td24, 1 PATCH TD DAILY for nicotine cravings, #7 Scheduled PRN Albuterol Sulfate (Ventolin Hfa) 18 Gm Hfa.aer.ad, 2 PUFF INH Q4H PRN for SHORTNESS OF BREATH, #1 Trazodone HCl (Trazodone HCl) 50 Mg Tablet, 50 MG PO QHSP PRN for INSOMNIA, #7 Allergies Coded Allergies: oxcarbazepine (Verified Allergy, Mild, RASH, 08/20/18) risperidone (Verified Adverse Reaction, Intermediate, TACHYCARDIA, 08/20/18) Quinolones (Verified Adverse Reaction, Mild, RASH, 08/20/18) aripiprazole (Verified Adverse Reaction, Mild, NUMBNESS, 08/20/18) fluoxetine (Verified Adverse Reaction, Mild, BLOODY NOSE, 08/20/18) hydroxyzine (Verified Adverse Reaction, Mild, NUMBNESS, 08/20/18) ofloxacin (Verified Adverse Reaction, Mild, RASH, 08/20/18) quetiapine (Verified Adverse Reaction, Mild, DISORIENTATION, 08/20/18) KASSIDY LEWIS MD Aug 31, 2018 17:49
== END 2018-08-28 14:13 | disposition home or self-care (01) | DRG 751 ==
LOC: M PSY 16:51
PROVIDERS: ADMIT Psychiatry & Neurology Child & Adolescent Psychiatry; ATTEND Psychiatry & Neurology Psychiatry
DX: F33.9 Major depressive disorder, recurrent, unspecified (principal); J18.9 Pneumonia, unspecified organism; I80.8 Phlebitis and thrombophlebitis of other sites; F41.1 Generalized anxiety disorder; F60.3 Borderline personality disorder; F42.9 Obsessive-compulsive disorder, unspecified; F17.200 Nicotine dependence, unspecified, uncomplicated; Z79.899 Other long term (current) drug therapy; Z88.8 Allergy status to other drugs, medicaments and biological substances; I10 Essential (primary) hypertension; I25.10 Atherosclerotic heart disease of native coronary artery without angina pectoris; E78.00 Pure hypercholesterolemia, unspecified; F10.20 Alcohol dependence, uncomplicated

== ENCOUNTER 2018-09-24 14:13 | Emergency (ER) | payer MEDICAID, OTHER ==
[~2018-09-24] VITALS: Ht 172.7 cm; Wt 124.3 kg
[~2018-09-24 14:13] MED LIST changes: +AMOX875T2 PO; -DIPH25CA PO; +DIPH25CA32 PO; +GABA-843 PO; -LAMO100T PO; +LAMO100T3 PO; -LAMO200T2 PO; +LAMO200T3 PO; +MUCI600T31 PO; +NICO21PAT TD; +TRAZ1TAB10 PO; -TRAZO50TA PO
[2018-09-24] MEDS ORDERED: BENA25CA4 PO (14:44)
[2018-09-24] MEDS ORDERED: LISI-542 PO (14:44)
[2018-09-24 15:25] LABS: HEMATOCRIT 44.3 % (36.0-47.0); HEMOGLOBIN 14.4 g/dl (12.0-15.5); MEAN CORPUSCULAR HEMOGLOBIN 29.2 pg (27.0-33.0); MEAN CORPUSCULAR HGB CONC 32.5 g/dl (32.0-36.5); MEAN CORPUSCULAR VOLUME 89.9 fl (80.0-96.0); PLATELET COUNT, AUTOMATED 347 10^3/uL (150-450); RED BLOOD COUNT 4.93 10^6/uL (4.00-5.40); WHITE BLOOD COUNT 10.5 10^3/uL (4.0-10.0)
[2018-09-24 16:05] LABS: ACETAMINOPHEN LEVEL < 2.0 UG/ML (10.0-30.0); ALBUMIN 3.6 GM/DL (3.2-5.2); ALT/SGPT 28 U/L (12-78); BILIRUBIN,DIRECT < 0.1 MG/DL (0.0-0.2); BILIRUBIN,TOTAL 0.3 MG/DL (0.2-1.0); BLOOD UREA NITROGEN 11 MG/DL (7-18); CALCIUM LEVEL 8.8 MG/DL (8.5-10.1); CARBON DIOXIDE LEVEL 26 MEQ/L (21-32); CHLORIDE LEVEL 107 MEQ/L (98-107); CREATININE FOR GFR 1.03 MG/DL (0.55-1.30); ETHYL ALCOHOL (ETHANOL) < 0.003 % (0.000-0.010); GLOMERULAR FILTRATION RATE 59.7 (>51); GLUCOSE, FASTING 130 MG/DL (70-100); SALICYLATE LEVEL 3.6 MG/DL (5.0-30.0); SODIUM LEVEL 138 MEQ/L (136-145)
[2018-09-24 17:50] LABS: AMPHETAMINES LEVEL URINE NEGATIVE (NEGATIVE); BARBITURATES URINE NEGATIVE (NEGATIVE); BENZODIAZEPINES URINE NEGATIVE (NEGATIVE); CANNABINOIDS URINE NEGATIVE (NEGATIVE); COCAINE METABOLITE URINE NEGATIVE (NEGATIVE); METHADONE URINE NEGATIVE (NEGATIVE); OPIATES URINE NEGATIVE (NEGATIVE); PHENCYCLIDINE URINE NEGATIVE (NEGATIVE)
[2018-09-24 19:28] VITALS: BP 129/76
[2019-01-28] MEDS ORDERED: NITR0.4S14 SL (11:37)
== END 2018-09-24 19:37 | disposition home or self-care (01) ==
LOC: M ED 14:13
DX: F33.0 Major depressive disorder, recurrent, mild (principal); F17.210 Nicotine dependence, cigarettes, uncomplicated; I25.2 Old myocardial infarction; I10 Essential (primary) hypertension; K21.9 Gastro-esophageal reflux disease without esophagitis; M54.30 Sciatica, unspecified side; Z79.52 Long term (current) use of systemic steroids; Z79.82 Long term (current) use of aspirin; Z79.899 Other long term (current) drug therapy; Z88.8 Allergy status to other drugs, medicaments and biological substances; Z91.5 Personal history of self-harm; Z95.5 Presence of coronary angioplasty implant and graft
CPT/HCPCS: 80048; 80076; 80307; 84443; 85027; 99284; G0480

== ENCOUNTER 2019-01-28 11:29 | Emergency (ER) | payer OTHER ==
[~2019-01-28] VITALS: Ht 172.7 cm; Wt 118.0 kg
[~2019-01-28 11:29] MED LIST changes: +BENA25CA4 PO; +LAMO100T PO; -LAMO100T3 PO; +LAMO200T2 PO; -LAMO200T3 PO; +LISI-542
[2019-01-28] MEDS ORDERED: NITR0.4S14 (11:37)
[2019-01-28] MEDS ORDERED: METO1TAB87 (11:37)
[2019-01-28] MEDS ORDERED: NS 1,000 ML IV ONE (12:00)
[2019-01-28] MEDS ORDERED: ONDANSETRON 4MG/2ML VIAL (J2405) IV ONE (12:00)
[2019-01-28 12:12] LABS: BASO # 0.1 10^3/uL (0.0-0.2); BASO % 0.5 % (0.0-1.0); EOS # 0.2 10^3/uL (0.0-0.5); EOS % 1.6 % (0.0-3.0); HEMATOCRIT 48.6 % (36.0-47.0); HEMOGLOBIN 15.7 g/dl (12.0-15.5); LYMPH # 2.5 10^3/uL (1.5-5.0); LYMPH % 21.2 % (24.0-44.0); MEAN CORPUSCULAR HEMOGLOBIN 29.9 pg (27.0-33.0); MEAN CORPUSCULAR HGB CONC 32.3 g/dl (32.0-36.5); MEAN CORPUSCULAR VOLUME 92.6 fl (80.0-96.0); MONO # 0.6 10^3/uL (0.0-0.8); MONO % 5.5 % (0.0-5.0); NEUTROPHILS # 8.1 10^3/uL (1.5-8.5); NEUTROPHILS % 70.3 % (36.0-66.0); PLATELET COUNT, AUTOMATED 390 10^3/uL (150-450); RED BLOOD COUNT 5.25 10^6/uL (4.00-5.40); WHITE BLOOD COUNT 11.6 10^3/uL (4.0-10.0)
[2019-01-28 12:46] LABS: ALBUMIN 3.7 GM/DL (3.2-5.2); ALT/SGPT 21 U/L (12-78); BILIRUBIN,DIRECT < 0.1 MG/DL (0.0-0.2); BILIRUBIN,TOTAL 0.4 MG/DL (0.2-1.0); BLOOD UREA NITROGEN 9 MG/DL (7-18); CALCIUM LEVEL 9.7 MG/DL (8.5-10.1); CARBON DIOXIDE LEVEL 23 MEQ/L (21-32); CHLORIDE LEVEL 110 MEQ/L (98-107); CK-MB VALUE MASS < 1.0 NG/ML (<3.6); CPK CREATINE PHOSPHOKINASE 63 U/L (26-192); CREATININE FOR GFR 1.06 MG/DL (0.55-1.30); GLOMERULAR FILTRATION RATE 57.5 (>51); GLUCOSE, FASTING 113 MG/DL (70-100); LIPASE 226 U/L (73-393); MB/CK RELATIVE INDEX 1.59 (< OR =4); POTASSIUM SERUM 4.5 MEQ/L (3.5-5.1); SODIUM LEVEL 139 MEQ/L (136-145); TOTAL PROTEIN 7.4 GM/DL (6.4-8.2); TROPONIN I < 0.02 NG/ML (< 0.10)
[2019-01-28] MEDS ORDERED: ISOVUE-370 76% 100ML VIAL (Q9967) As Ordered ONE (12:55)
--- NOTE | 2019-01-28 13:23 | REP ---
Clinical: Periumbilical pain. Technique: Axial contrast enhanced images from the lung bases to the pubic symphysis using 100 ml Isovue 370 intravenous contrast material with coronal and sagittal re-formations. Comparison: 10/16/2017. Findings: Hepatic steatosis again noted without focal hepatic lesion. Spleen, pancreas, gallbladder, bilateral adrenal glands and left kidney are normal. Stable right lower pole renal cyst measures 3.7 cm diameter. There is a [id number] midline ventral hernia/eventration containing fat as well as nonobstructed loops of small bowel and transverse colon which appears unchanged from prior examination measuring roughly approximately 9.5 cm maximal diameter. There is no evidence for bowel obstruction or acute inflammatory process. Sigmoid diverticula noted without acute diverticulitis. Pelvis demonstrates normal bladder and age-appropriate uterus/adnexa. Evidence for prior partial rectosigmoid resection and anastomoses. No ascites. No free air. No adenopathy. Abdominal aorta without aneurysm or dissection. Osseous structures demonstrate degenerative changes without focal abnormality. Lung bases are clear. Impression: 1. Alxqoxov-js-pukyy stable ventral hernia/eventration containing nonobstructed transverse colon and small bowel along with intraperitoneal fat. Findings are essentially unchanged compared to 10/16/2017. 2. Hepatic steatosis. 3. Stable right renal cyst. Electronically Signed by Christophe Corbin MD 01/28/2019 01:14 P
[2019-01-28 14:55] VITALS: BP 133/70
== END 2019-01-28 15:15 | disposition home or self-care (01) ==
LOC: M ED 11:29
DX: R10.9 Unspecified abdominal pain (principal); R11.2 Nausea with vomiting, unspecified; I10 Essential (primary) hypertension; J45.909 Unspecified asthma, uncomplicated; E78.5 Hyperlipidemia, unspecified; K21.9 Gastro-esophageal reflux disease without esophagitis; F31.9 Bipolar disorder, unspecified; F41.9 Anxiety disorder, unspecified; F20.9 Schizophrenia, unspecified; F60.3 Borderline personality disorder; K44.9 Diaphragmatic hernia without obstruction or gangrene; M51.9 Unspecified thoracic, thoracolumbar and lumbosacral intervertebral disc disorder; E66.9 Obesity, unspecified; Z79.82 Long term (current) use of aspirin; Z79.01 Long term (current) use of anticoagulants; Z88.1 Allergy status to other antibiotic agents; Z88.8 Allergy status to other drugs, medicaments and biological substances; F17.210 Nicotine dependence, cigarettes, uncomplicated
CPT/HCPCS: 36415; 74177; 80048; 80076; 81001; 82550; 82553; 83690; 85025; 96361; 96374; 99284; J2405; Q9967

== ENCOUNTER 2019-04-02 16:22 | Inpatient (IN) | payer MEDICAID, OTHER ==
[~2019-04-02] VITALS: Ht 172.7 cm; Wt 115.1 kg
[~2019-04-02 16:22] MED LIST changes: -LAMO100T PO; +LAMO100T3 PO; -LAMO200T2 PO; +LAMO200T3 PO; -LISI-542; +METO1TAB87; +NITR0.4S14 SL
[2019-04-02 17:25] LABS: HEMATOCRIT 47.5 % (36.0-47.0); HEMOGLOBIN 14.9 g/dl (12.0-15.5); MEAN CORPUSCULAR HEMOGLOBIN 29.2 pg (27.0-33.0); MEAN CORPUSCULAR HGB CONC 31.4 g/dl (32.0-36.5); MEAN CORPUSCULAR VOLUME 93.1 fl (80.0-96.0); PLATELET COUNT, AUTOMATED 357 10^3/uL (150-450); WHITE BLOOD COUNT 11.1 10^3/uL (4.0-10.0)
[2019-04-02 17:57] LABS: ACETAMINOPHEN LEVEL < 2.0 UG/ML (10.0-30.0); ALBUMIN 3.5 GM/DL (3.2-5.2); ALT/SGPT 24 U/L (12-78); BILIRUBIN,DIRECT 0.1 MG/DL (0.0-0.2); BILIRUBIN,TOTAL 0.3 MG/DL (0.2-1.0); BLOOD UREA NITROGEN 14 MG/DL (7-18); CALCIUM LEVEL 9.1 MG/DL (8.5-10.1); CARBON DIOXIDE LEVEL 29 MEQ/L (21-32); CHLORIDE LEVEL 107 MEQ/L (98-107); CREATININE FOR GFR 1.16 MG/DL (0.55-1.30); ETHYL ALCOHOL (ETHANOL) < 0.003 % (0.000-0.010); GLOMERULAR FILTRATION RATE 51.8 (>51); GLUCOSE, FASTING 92 MG/DL (70-100); SALICYLATE LEVEL 3.6 MG/DL (5.0-30.0); SODIUM LEVEL 141 MEQ/L (136-145); TOTAL PROTEIN 6.9 GM/DL (6.4-8.2)
[2019-04-02 18:08] LABS: AMPHETAMINES LEVEL URINE NEGATIVE (NEGATIVE); BARBITURATES URINE NEGATIVE (NEGATIVE); BENZODIAZEPINES URINE NEGATIVE (NEGATIVE); CANNABINOIDS URINE NEGATIVE (NEGATIVE); COCAINE METABOLITE URINE NEGATIVE (NEGATIVE); METHADONE URINE NEGATIVE (NEGATIVE); OPIATES URINE NEGATIVE (NEGATIVE); PHENCYCLIDINE URINE NEGATIVE (NEGATIVE)
[2019-04-02] MEDS ORDERED: LAMO200T3 PO (19:35)
[2019-04-02] MEDS ORDERED: ASPI81TA26 PO (19:38)
[2019-04-02] MEDS ORDERED: VENTAER INH (19:38)
[2019-04-02] MEDS ORDERED: CLOP75TA2 PO (19:38)
[2019-04-02] MEDS ORDERED: MAALOX 30 ML SUSP *UDC PO PRN (20:30)
[2019-04-02] MEDS ORDERED: MOM 30ML SUSPENSION UDC PO PRN (20:30)
[2019-04-02] MEDS ORDERED: OLANZapine ORAL DISINTEGRATING TAB 5MG PO PRN (20:30)
[2019-04-02] MEDS ORDERED: traZODone 50 MG TAB PO PRN (20:30)
[2019-04-02 21:20] VITALS: BP 146/90
[2019-04-03 06:24] VITALS: BP 127/85
--- NOTE | 2019-04-03 10:17 | MHHPEPDOC ---
[facility] History & Physical History and Physical DATE OF ADMISSION: Apr 02, 2019 at 20:16 New Patient Adela Polo MRN: N/A Date of : N/A Date of Service: 04/03/2019 Chief Complaint "I called the crisis line." History of Present Illness The patient, a 53-year-old woman with a reported history of depression, presents after reportedly calling the crisis line where after a concerning call had subsequently hung up where the crisis line had called a pick-up order in order for her to be assessed and evaluated. She was admitted out of abundance of caution as she reports having "nervous breakdowns" and has poor integration into society, being isolative, frightened to leave her home and agoraphobic. The patient reports that she wishes to leave and appears to be minimizing a majority of her symptoms and evasive about multiple questions. The patient has reportedly called the suicide line before and was concerned about her own safety. Collateral information is gotten from her mother who lives in another state, but is someone who she speaks too frequently, who reports significant concern with the patient making multiple parasuicidal statements and generally decreasing in her function. She has no outpatient care at this time. The patient is told that she would likely need to stay for further observation at this time. Review Of Systems Depression: As above, appears evasive. Anxiety: The patient denies any excessive worry associated with physical symptoms. They deny any experience of discreet panic in the past. Genevieve: The patient denies any episodes of euphoria/dysphoria associated with decreased need for sleep, hedonism, talkatively or impulsivity lasting longer than 5 days. Psychotic: The patient denies any experiences of auditory or visual hallucinations. They deny any episodes of paranoia or delusional thinking in the past Trauma: The patient denies any traumatic events associated with nightmares or intrusive thoughts. Borderline: The patient screens negative for borderline personality at this junction. Past Psychiatric History The patient has a reported history of depression and anxiety, treated at [facility] recently where she is established for therapy, had been recently admitted in July 2008, is currently on a combination of lamotrigine 200 mg. Allergies Please see below. Family Psychiatric History The patient denies/is unaware any history of mental health history including addictions and suicide. Social History The patient is a never woman with no children who lives alone. She is self-described as bisexual. Has no social contacts. Significantly is disabled, currently on SSI first of the month. Has received GED. Has had some legal troubles for theft in the past. She reports a good relationship with her parents who were both with no history of abuse or trauma from them, but reports some difficulties with others. Patient is very guarded on this interview. Substance Abuse History The patient reports having difficulty with alcohol use, but appears to minimize the amount she drinks. She reports smoking a pack a day of tobacco. Denies any cannabis, opioid, stimulant use. Medical History Has a history of cardiovascular, metabolic disorders. Mental Status Examination General: Well dressed with good hygiene Speech: Spontaneous and fluid Thought processes: Linear and logical MSK: Smooth and coordinated gait, no signs of tremors or involuntary orofacial movements Thought content: Mildly guarded Abstract reasoning, and computation: Intact Description of associations: Intact Description of abnormal or psychotic thoughts: Denies any suicidal or homicidal ideation. Denies any auditory or visual hallucinations. Does not appear to be responding to internal stimuli. Does not appear to be endorsing any bizarre or paranoid ideation. Judgment: Unclear Insight: Unclear Orientation: Alert and orientated 3 Cognition: Grossly normal Recent and remote memory: Intact Attention span and concentration: Intact Fund of knowledge: Adequate Mood: "okay" Affect: Mild anxious Diagnoses Unspecified depressive disorder. Alcohol use disorder, unspecified. Tobacco use disorder, moderate. Assessment and Plan Unspecified depressive disorder: Continue home medications. Observation will be needed and discharge on Saturday if patient continues to deny suicidality with no signs of significant depression. Alcohol use disorder: Monitor for alcohol withdrawal. Tobacco use disorder: Offer nicotine patch. Disposition The patient will need further inpatient admission to observe her to determine if she is at risk as she has had some concerning para-suicidal statements per her collateral information, which will likely be more than 2 midnights. Problem List 1. Risk for suicide. 2. Depression. Initial Treatment Plan 1. Patient was admitted on a 9.39 legal status. 2. Complete history was obtained. 3. With patients permission, family will be contacted and database will be exp anded. 4. Patients medication regimen will be reviewed and changed accordingly. 5. Patient will be provided with protected environment. 6. Patient will be treated with individual, group, and milieu therapies. 7. Patient will receive supportive psych-education. 8. Discharge planning will commence immediately. 9. Outpatient follow-up treatment will be strongly recommended. 10. The initial treatment plan will focus initially on: Estimated Length Of Stay 4 days. Time Spent 70 minutes. Saturday Vital Signs Vital Signs Date Time Temp Pulse Resp B/P (MAP) Pulse Ox O2 Delivery O2 Flow Rate FiO2 04/03/19 06:24 98.4 79 14 127/85 (99) Room Air 04/02/19 21:20 99 Laboratory Data 24H Labs Laboratory Tests 2 04/02/19 16:34: Urine Opiates Screen NEGATIVE, Urine Methadone Screen NEGATIVE, Urine Barbiturates Screen NEGATIVE, Urine Phencyclidine Screen NEGATIVE, Urine Amphetamines Screen NEGATIVE, Urine Benzodiazepines Screen NEGATIVE, Urine Cocaine Metabolite Screen NEGATIVE, Urine Cannabinoids Screen NEGATIVE 04/02/19 16:45: Nucleated Red Blood Cells % (auto) 0.0, Anion Gap 5L, Glomerular Filtration Rate 51.8, Calcium Level 9.1, Total Bilirubin 0.3, Direct Bilirubin 0.1, Aspartate Amino Transf (AST/SGOT) 15, Alanine Aminotransferase (ALT/SGPT) 24, Alkaline Phosphatase 129H, Total Protein 6.9, Albumin 3.5, Albumin/Globulin Ratio 1.03, Thyroid Stimulating Hormone (TSH) 3.080, Salicylates Level 3.6L, Acetaminophen Level < 2.0L, Ethyl Alcohol Level < 0.003 CBC/BMP Laboratory Tests 04/02/19 16:45 Medications Scheduled Aspirin (Aspirin EC) 81 Mg Tablet.dr, 81 MG PO DAILY, (Reported) Clopidogrel Bisulfate (Clopidogrel) 75 Mg Tablet, 75 MG PO DAILY, (Reported) Lamotrigine (Lamotrigine) 200 Mg Tablet, 200 MG PO DAILY, (Reported) Lisinopril (Lisinopril) 5 Mg Tablet, 5 MG PO DAILY, (Reported) Scheduled PRN Albuterol Sulfate (Ventolin Hfa) 18 Gm Hfa.aer.ad, 2 PUFF INH Q4H PRN for SHORTNESS OF BREATH, (Reported) Nitroglycerin (Nitroglycerin) 0.4 Mg Tab.subl, 0.4 MG SL Q5MP PRN for CHEST PAIN, (Reported) Allergies Coded Allergies: oxcarbazepine (Verified Allergy, Mild, RASH, 08/20/18) risperidone (Verified Adverse Reaction, Intermediate, TACHYCARDIA, 08/20/18) Quinolones (Verified Adverse Reaction, Mild, RASH, 08/20/18) aripiprazole (Verified Adverse Reaction, Mild, NUMBNESS, 08/20/18) fluoxetine (Verified Adverse Reaction, Mild, BLOODY NOSE, 08/20/18) hydroxyzine (Verified Adverse Reaction, Mild, NUMBNESS, 08/20/18) ofloxacin (Verified Adverse Reaction, Mild, RASH, 08/20/18) quetiapine (Verified Adverse Reaction, Mild, DISORIENTATION, 08/20/18) DIGNA MALDONADO DO Apr 03, 2019 10:17
[2019-04-03] MEDS ORDERED: NITROGLYCERIN 0.4 MG SUBL TABLET SL PRN (11:45)
[2019-04-03] MEDS ORDERED: ALBUTEROL 90 MCG/ACT 8GM HFA INHALER INH PRN (11:45)
[2019-04-03] MEDS: ASPIRIN 81 MG ENTERIC TAB PO SCH (12:28)
[2019-04-03] MEDS: lisinopriL 5 MG TAB PO SCH (12:28)
[2019-04-03] MEDS: CLOPIDOGREL 75 MG TAB PO SCH (12:28)
[2019-04-03] MEDS: lamoTRIgine 100MG TAB PO SCH (12:29)
[2019-04-03] MEDS ORDERED: NICOTINE 14 MG/24 HR TRANSDERMAL TD PRN (13:15)
--- NOTE | 2019-04-03 13:30 | HPEPDOC ---
General Date of Admission Apr 02, 2019 at 20:16 Date of Service: Apr 03, 2019 Chief Complaint The patient is a 53-year-old female admitted with a reason for visit of Unspecified Mood D/O. Source: Patient Exam Limitations: No limitations Associated Symptoms: Denies Symptoms History of Present Illness Ms. Polo is a 53 year old female admitted to the [facility] with a diagnosis of a Mood Disorder. She is a little frustrated at being inpatient at this time; apparently she had called a counseling support line over the holidays and the person on the other end misunderstood her, resulting in her current admission. Pt denied any medical issues since being admitted she is complaint with all of her medications. Home Medications Scheduled Aspirin (Aspirin EC) 81 Mg Tablet.dr, 81 MG PO DAILY, (Reported) Clopidogrel Bisulfate (Clopidogrel) 75 Mg Tablet, 75 MG PO DAILY, (Reported) Lamotrigine (Lamotrigine) 200 Mg Tablet, 200 MG PO DAILY, (Reported) Lisinopril (Lisinopril) 5 Mg Tablet, 5 MG PO DAILY, (Reported) Scheduled PRN Albuterol Sulfate (Ventolin Hfa) 18 Gm Hfa.aer.ad, 2 PUFF INH Q4H PRN for SHORTNESS OF BREATH, (Reported) Nitroglycerin (Nitroglycerin) 0.4 Mg Tab.subl, 0.4 MG SL Q5MP PRN for CHEST PAIN, (Reported) Allergies Coded Allergies: oxcarbazepine (Verified Allergy, Mild, RASH, 08/20/18) risperidone (Verified Adverse Reaction, Intermediate, TACHYCARDIA, 08/20/18) Quinolones (Verified Adverse Reaction, Mild, RASH, 08/20/18) aripiprazole (Verified Adverse Reaction, Mild, NUMBNESS, 08/20/18) fluoxetine (Verified Adverse Reaction, Mild, BLOODY NOSE, 08/20/18) hydroxyzine (Verified Adverse Reaction, Mild, NUMBNESS, 08/20/18) ofloxacin (Verified Adverse Reaction, Mild, RASH, 08/20/18) quetiapine (Verified Adverse Reaction, Mild, DISORIENTATION, 08/20/18) Past Medical History Medical History STEMI - with stents CAD HTN HLD DVT Prophylaxis Diverticulitis of the large intestine (colon resection) Renal cyst Ventral hernia (will have surgery with the appropriate weight-loss) LBP and sciatica Cephalgia Closed head injury Depression, with suicidal ideation Bipolar Disorder Drug overdose Suicide Attempt Nicotine addiction Surgical History Colon resection DNC Family History Significant Family History: No pertinent family hx Social History * Smoker: current smoker (1.5PPD ) Alcohol: occationally Drugs: other (recovering addict ) Psychosocial History: Wally SI and HI, Prior suicide attempt A-FIB/CHADSVASC A-FIB History Current/History of A-Fib/PAF?: No Current PO Anticoag Therapy: No Review of Systems Constitutional: Denies: Chills, Fever, Night Sweats Eyes: Denies: Pain ENT: Denies: Head Aches Skin: Denies: Rash Pulmonary: Denies: Dyspnea, Cough Cardiovascular: Denies: Chest Pain, Palpitations, Orthopnea, Lt Headedness Gastrointestinal: Denies: Nausea, Vomiting, Abdominal Pain Genitourinary: Denies: Dysuria Hematologic: Denies: Bruising Musculoskeletal: Denies: Neck Pain, Back Pain, Joint Pain, Muscle Pain, Spasms Neurological: Denies: Change in speech, Confusion Psych: Reports: Mood Normal, Depression Physical Examination General Exam: Positive: Alert, Cooperative, No Acute Distress Eye Exam: Positive: PERRLA, Conjunctiva & lids normal, EOMI; Negative: Sclera icteric ENT Exam: Positive: Atraumatic, Mucous membr. moist/pink, Pharynx Normal, Tongue Midline Neck Exam: Positive: Supple; Negative: thyromegaly Chest Exam: Positive: Clear to auscultation, Normal air movement Heart Exam: Positive: Rate Normal, Normal S1, Normal S2 Abdomen Exam: Positive: Normal bowel sounds, Soft; Negative: Tenderness Extremity Exam: Negative: Clubbing, Cyanosis, Edema, Normal pulses Skin Exam: Positive: Nl turgor and temperature Neuro Exam: Positive: Normal Gait, Normal Speech, Strength at 5/5 X4 ext, Cranial Nerves 3-12 NL Psych Exam: Positive: Mood NL, Oriented x 3 Vital Signs Vital Signs Date Time Temp Pulse Resp B/P (MAP) Pulse Ox O2 Delivery O2 Flow Rate FiO2 04/03/19 12:28 153/86 04/03/19 06:24 98.4 79 14 Room Air 04/02/19 21:20 99 Laboratory Data Labs 24H Laboratory Tests 2 04/02/19 16:34: Urine Opiates Screen NEGATIVE, Urine Methadone Screen NEGATIVE, Urine Barbiturates Screen NEGATIVE, Urine Phencyclidine Screen NEGATIVE, Urine Amphetamines Screen NEGATIVE, Urine Benzodiazepines Screen NEGATIVE, Urine Cocaine Metabolite Screen NEGATIVE, Urine Cannabinoids Screen NEGATIVE 04/02/19 16:45: Nucleated Red Blood Cells % (auto) 0.0, Anion Gap 5L, Glomerular Filtration Rate 51.8, Calcium Level 9.1, Total Bilirubin 0.3, Direct Bilirubin 0.1, Aspartate Amino Transf (AST/SGOT) 15, Alanine Aminotransferase (ALT/SGPT) 24, Alkaline Phosphatase 129H, Total Protein 6.9, Albumin 3.5, Albumin/Globulin Ratio 1.03, Thyroid Stimulating Hormone (TSH) 3.080, Salicylates Level 3.6L, Acetaminophen Level < 2.0L, Ethyl Alcohol Level < 0.003 CBC/BMP Laboratory Tests 04/02/19 16:45 Assessment/Plan Ms. Polo is a 53 year old female admitted to the [facility] with a diagnosis of a Mood Disorder. She is a little frustrated at being inpatient at this time; apparently she had called a counseling support line over the holidays and the person on the other end misunderstood her, resulting in her current admission. Pt denied any medical issues since being admitted she is complaint with all of her medications. 1. Depression - management per psych 2. HTN - continue Lisinopril 3. CAD - continue Plavix and ASA 4. Angina - continue Nitrostat 5. Nicotine addiction - counseled to quit smoking; pt reported she is a recovering drug addict so nicotine helps her to remain sober - will accept nicotine patches inpt. (CAD pt on Plavix and ASA) Patient is medically stable at this time so medicine will sign off. Please re- consult as needed. Plan / VTE VTE Prophylaxis Ordered?: Yes (on Plavix chronically) RUFUS ALICIA PA-C Apr 03, 2019 13:30
[2019-04-03] MEDS: NICOTINE 21MG/24HR 1 EA TRANSDERMAL TD PRN (13:48)
[2019-04-03 18:00] VITALS: BP 126/70
[2019-04-03] MEDS: ACETAMINOPHEN TAB 650MG DOSE (2X325MG) PO PRN (19:01)
[2019-04-04 06:22] VITALS: BP 129/70
[2019-04-04] MEDS: lamoTRIgine 100MG TAB PO SCH (09:23)
[2019-04-04] MEDS: ASPIRIN 81 MG ENTERIC TAB PO SCH (09:23)
[2019-04-04] MEDS: lisinopriL 5 MG TAB PO SCH (09:23)
[2019-04-04] MEDS: CLOPIDOGREL 75 MG TAB PO SCH (09:23)
[2019-04-04] MEDS: NICOTINE 21MG/24HR 1 EA TRANSDERMAL TD PRN (10:54)
[2019-04-04 15:58] VITALS: BP 113/56
--- NOTE | 2019-04-04 21:01 | MHIPN ---
DATE: 04/04/2019 The patient today states, "I am fine today." She feels that she really did not need to be hospitalized this time and that it was all a misunderstanding. She denies suicidal ideations. MENTAL STATUS EXAMINATION: This patient is alert and oriented times three. She is verbally spontaneous. Eye contact is good. She tends to speak very loudly and her speech is a bit pressured. She says that her mood is good. Affect is appropriate to mood. She is not psychotic. She is denying being suicidal or homicidal. Concentration is fair. Memory intact. Insight and judgment poor. Diagnoses Unspecified depressive disorder. Alcohol use disorder, unspecified. TREATMENT PLAN: At this point, we will continue to evaluate the patient for continued resolution and stabilization of his mood and for continued resolution of suicidal ideations. JANINA
[2019-04-04] MEDS: ACETAMINOPHEN TAB 650MG DOSE (2X325MG) PO PRN (22:00)
[2019-04-05 06:17] VITALS: BP 117/59
[2019-04-05] MEDS: ASPIRIN 81 MG ENTERIC TAB PO SCH (08:14)
[2019-04-05] MEDS: CLOPIDOGREL 75 MG TAB PO SCH (08:14)
[2019-04-05] MEDS: NICOTINE 21MG/24HR 1 EA TRANSDERMAL TD PRN (08:15)
[2019-04-05] MEDS: lisinopriL 5 MG TAB PO SCH (08:15)
[2019-04-05] MEDS: lamoTRIgine 100MG TAB PO SCH (08:15)
[2019-04-05 15:55] VITALS: BP 125/65
[2019-04-05] MEDS: ACETAMINOPHEN TAB 650MG DOSE (2X325MG) PO PRN (18:49)
--- NOTE | 2019-04-05 20:15 | MHIPN ---
DATE: 04/05/2019 The patient today states that she is doing good. She continues to say that there is no reason for her to get admitted to the hospital this time, she was never suicidal. She slept good and has no complaints. MENTAL STATUS EXAMINATION: She is alert and oriented times three. She is verbally spontaneous. Eye contact is good. There is no formal thought disorder noted. Mood is good. Affect is full range and appropriate. She is not psychotic, suicidal or homicidal. Concentration is fair. Memory intact. Insight and judgment fair. Diagnoses Unspecified depressive disorder. Alcohol use disorder, unspecified. TREATMENT PLAN: We will continue to monitor the patient for continued elevation and stabilization of her mood and continued resolution of suicidal ideations. JANINA
[2019-04-06 06:20] VITALS: BP 140/65
[2019-04-06 09:32] VITALS: BP 160/72
[2019-04-06] MEDS: lisinopriL 5 MG TAB PO SCH (09:32)
[2019-04-06] MEDS: lamoTRIgine 100MG TAB PO SCH (09:33)
[2019-04-06] MEDS: CLOPIDOGREL 75 MG TAB PO SCH (09:33)
[2019-04-06] MEDS: ASPIRIN 81 MG ENTERIC TAB PO SCH (09:33)
[2019-04-06] MEDS ORDERED: NICO21PAT TD (10:40)
--- NOTE | 2019-04-06 10:40 | MHDSPDOC ---
[facility] Discharge Summary Discharge Summary DATE OF ADMISSION: Apr 02, 2019 at 20:16 DATE OF DISCHARGE: 04/06/19 Discharge Adela Polo MRN: N/A Date of : N/A Date of Service: 04/06/2019 Diagnoses Alcohol use disorder, unspecified. Tobacco use disorder, moderate. PTSD, chronic. History of Present Illness The patient, a 53-year-old woman with a reported history of depression, presents after reportedly calling the crisis line where after a concerning call had chester bsequently hung up where the crisis line had called a pick-up order in order for her to be assessed and evaluated. She was admitted out of abundance of caution as she reports having "nervous breakdowns" and has poor integration into society, being isolative, frightened to leave her home and agoraphobic. The patient reports that she wishes to leave and appears to be minimizing a majority of her symptoms and evasive about multiple questions. The patient has reportedly called the suicide line before and was concerned about her own safety. Collateral information is gotten from her mother who lives in another state, but is someone who she speaks too frequently, who reports significant concern with the patient making multiple parasuicidal statements and generally decreasing in her function. She has no outpatient care at this time. The patient is told that she would likely need to stay for further observation at this time. Consultants Involved Hospitalist/PCP screening Treatment and Progress On The Unit The patient was admitted to the inpatient unit after she had made reported concerning statements to the crisis line. She was brought in and admitted out of an abundance of caution. Collateral information revealed that she had been having some decrease in function and had not been doing well in her isolation. The patient was kept out of an abundance of caution as her collateral sources did not reveal an overt suicidality, but did show more decrease in function. The patient was admitted for observation. She, after further meeting, did appear to have signs and symptoms of PTSD primarily, but had denied any signs of depression. The patient was observed over the weekend where she was kept on her home medications without any alterations, where she was reasonably social and cooperative with treatment. She had been denying suicidality or homicidality through the entirety of her admission and on the day of discharge declined further voluntary admission and did not meet involuntary criteria in my opinion, due to her normal mental status exam, relatively fair insight, and lack of signs of imminent dangerousness on our unit with no parasuicidal behavior noted. Discharge Assessment 53-year-old woman with reported history of depression presents for observation after concerning statements. She likely has PTSD with Rodas minus cluster B personality traits, likely having stated some concerning statement to the crisis team and had been poorly connected to mental health. She was observed over the weekend where she doesn't demonstrate any factors that can be used reasonably to keep her against her will, and is discharged in good deni after she declines further voluntary admission. Mental Status Examination General: Well dressed with good hygiene Speech: Spontaneous and fluid Thought processes: Linear and logical MSK: Smooth and coordinated gait, no signs of tremors or involuntary orofacial movements Thought content: Future orientated Abstract reasoning, and computation: Intact Description of associations: Intact Description of abnormal or psychotic thoughts: Denies any suicidal or homicidal ideation. Denies any auditory or visual hallucinations. Does not appear to be responding to internal stimuli. Does not appear to be endorsing any bizarre or paranoid ideation. Judgment: fair Insight: fair Orientation: Alert and orientated 3 Cognition: Grossly normal Recent and remote memory: Intact Attention span and concentration: Intact Fund of knowledge: Adequate Mood: "okay" Affect: Euthymic with a full range Follow Up The social work team worked during the predischarge meeting in order to evaluate for further issues of lethality address them fully before discharge. They worked on safety planning with the patient's family members in order to ensure that the patient will have a safe and effective discharge. Time Spent The amount of time spent in the coordination of care for this patient was approximately 60 minutes. Saturday Vital Signs/I&Os Vital Signs Date Time Temp Pulse Resp B/P (MAP) Pulse Ox O2 Delivery O2 Flow Rate FiO2 04/06/19 09:32 160/72 04/06/19 06:20 98.9 70 18 Room Air 04/02/19 21:20 99 Medications Scheduled Aspirin (Aspirin EC) 81 Mg Tablet.dr, 81 MG PO DAILY, (Reported) Clopidogrel Bisulfate (Clopidogrel) 75 Mg Tablet, 75 MG PO DAILY, (Reported) Lamotrigine (Lamotrigine) 200 Mg Tablet, 200 MG PO DAILY, (Reported) Lisinopril (Lisinopril) 5 Mg Tablet, 5 MG PO DAILY, (Reported) Scheduled PRN Albuterol Sulfate (Ventolin Hfa) 18 Gm Hfa.aer.ad, 2 PUFF INH Q4H PRN for SHORTNESS OF BREATH for 30 Days, (Reported) Nicotine (Nicotine Patch) 21 Mg Patch.td24, 1 PATCH TD DAILYPRN PRN for NICOTINE WITHDRAWAL for 30 Days, #30 Nitroglycerin (Nitroglycerin) 0.4 Mg Tab.subl, 0.4 MG SL Q5MP PRN for CHEST PAIN, (Reported) Allergies Coded Allergies: oxcarbazepine (Verified Allergy, Mild, RASH, 08/20/18) risperidone (Verified Adverse Reaction, Intermediate, TACHYCARDIA, 08/20/18) Quinolones (Verified Adverse Reaction, Mild, RASH, 08/20/18) aripiprazole (Verified Adverse Reaction, Mild, NUMBNESS, 08/20/18) fluoxetine (Verified Adverse Reaction, Mild, BLOODY NOSE, 08/20/18) hydroxyzine (Verified Adverse Reaction, Mild, NUMBNESS, 08/20/18) ofloxacin (Verified Adverse Reaction, Mild, RASH, 08/20/18) quetiapine (Verified Adverse Reaction, Mild, DISORIENTATION, 08/20/18) DIGNA MALDONADO DO Apr 06, 2019 10:40
== END 2019-04-06 11:40 | disposition home or self-care (01) | DRG 755 ==
LOC: M ED 16:22 → M ED INP 20:16 → M PSY 21:05
PROVIDERS: ADMIT Psychiatry & Neurology Psychiatry; ATTEND Psychiatry & Neurology Addiction Medicine
DX: F43.10 Post-traumatic stress disorder, unspecified (principal); I10 Essential (primary) hypertension; F10.10 Alcohol abuse, uncomplicated; F17.200 Nicotine dependence, unspecified, uncomplicated; Z79.899 Other long term (current) drug therapy; Z79.82 Long term (current) use of aspirin; Z88.8 Allergy status to other drugs, medicaments and biological substances; I25.2 Old myocardial infarction; Z95.2 Presence of prosthetic heart valve; K57.30 Diverticulosis of large intestine without perforation or abscess without bleeding; M54.5 Low back pain; K43.9 Ventral hernia without obstruction or gangrene; I20.9 Angina pectoris, unspecified

== ENCOUNTER 2019-04-23 17:21 | Emergency (ER) | payer MEDICAID, OTHER ==
[~2019-04-23] VITALS: Ht 172.7 cm; Wt 114.5 kg
[~2019-04-23 17:21] MED LIST changes: +ASPI81TA26 PO
[2019-04-23 20:24] VITALS: BP 160/90
== END 2019-04-23 20:28 | disposition home or self-care (01) ==
LOC: M ED 17:21
DX: F43.0 Acute stress reaction (principal); I11.9 Hypertensive heart disease without heart failure; E78.5 Hyperlipidemia, unspecified; F31.9 Bipolar disorder, unspecified; Z91.5 Personal history of self-harm; F17.210 Nicotine dependence, cigarettes, uncomplicated; Z88.1 Allergy status to other antibiotic agents; Z88.5 Allergy status to narcotic agent; Z79.51 Long term (current) use of inhaled steroids; Z79.84 Long term (current) use of oral hypoglycemic drugs; Z79.899 Other long term (current) drug therapy

== ENCOUNTER 2019-05-16 16:07 | Emergency (ER) | payer OTHER ==
[~2019-05-16] VITALS: Ht 172.7 cm; Wt 115.0 kg
[2019-05-16] MEDS ORDERED: GABA-843 PO (16:29)
[2019-05-16] MEDS ORDERED: ATOR80TA59 PO (16:29)
[2019-05-16 17:33] LABS: BASO # 0.1 10^3/uL (0.0-0.2); BASO % 0.5 % (0.0-1.0); EOS # 0.3 10^3/uL (0.0-0.5); EOS % 2.4 % (0.0-3.0); HEMATOCRIT 45.4 % (36.0-47.0); HEMOGLOBIN 14.9 g/dl (12.0-15.5); LYMPH # 3.8 10^3/uL (1.5-5.0); LYMPH % 31.5 % (24.0-44.0); MEAN CORPUSCULAR HEMOGLOBIN 29.9 pg (27.0-33.0); MEAN CORPUSCULAR HGB CONC 32.8 g/dl (32.0-36.5); MEAN CORPUSCULAR VOLUME 91.2 fl (80.0-96.0); MONO # 0.6 10^3/uL (0.0-0.8); NEUTROPHILS # 7.1 10^3/uL (1.5-8.5); NEUTROPHILS % 60.1 % (36.0-66.0); PLATELET COUNT, AUTOMATED 400 10^3/uL (150-450); RED BLOOD COUNT 4.98 10^6/uL (4.00-5.40); WHITE BLOOD COUNT 11.9 10^3/uL (4.0-10.0)
[2019-05-16 18:18] LABS: ACETAMINOPHEN LEVEL < 2.0 UG/ML (10.0-30.0); ALBUMIN 3.6 GM/DL (3.2-5.2); ALT/SGPT 28 U/L (12-78); BILIRUBIN,DIRECT < 0.1 MG/DL (0.0-0.2); BILIRUBIN,TOTAL 0.2 MG/DL (0.2-1.0); BLOOD UREA NITROGEN 6 MG/DL (7-18); CALCIUM LEVEL 8.8 MG/DL (8.5-10.1); CARBON DIOXIDE LEVEL 27 MEQ/L (21-32); CHLORIDE LEVEL 110 MEQ/L (98-107); CK-MB VALUE MASS 1.2 NG/ML (<3.6); CPK CREATINE PHOSPHOKINASE 94 U/L (26-192); CREATININE FOR GFR 1.07 MG/DL (0.55-1.30); GLOMERULAR FILTRATION RATE 56.9 (>51); GLUCOSE, FASTING 110 MG/DL (70-100); MB/CK RELATIVE INDEX 1.28 (< OR =4); SALICYLATE LEVEL 4.1 MG/DL (5.0-30.0); SODIUM LEVEL 143 MEQ/L (136-145); TOTAL PROTEIN 6.8 GM/DL (6.4-8.2); TROPONIN I < 0.02 NG/ML (< 0.10)
[2019-05-16 18:19] LABS: ETHYL ALCOHOL (ETHANOL) < 0.003 % (0.000-0.010)
[2019-05-16 19:25] LABS: AMPHETAMINES LEVEL URINE NEGATIVE (NEGATIVE); BARBITURATES URINE NEGATIVE (NEGATIVE); BENZODIAZEPINES URINE NEGATIVE (NEGATIVE); CANNABINOIDS URINE NEGATIVE (NEGATIVE); COCAINE METABOLITE URINE NEGATIVE (NEGATIVE); METHADONE URINE NEGATIVE (NEGATIVE); OPIATES URINE NEGATIVE (NEGATIVE); PHENCYCLIDINE URINE NEGATIVE (NEGATIVE)
[2019-05-16 19:58] VITALS: BP 122/68
--- NOTE | 2019-05-17 05:47 | ECGEPIP ---
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
== END 2019-05-16 20:16 | disposition home or self-care (01) ==
LOC: M ED 16:07
DX: F45.0 Somatization disorder (principal); R94.31 Abnormal electrocardiogram [ECG] [EKG]; I11.9 Hypertensive heart disease without heart failure; E78.5 Hyperlipidemia, unspecified; F20.9 Schizophrenia, unspecified; Z95.5 Presence of coronary angioplasty implant and graft; F17.210 Nicotine dependence, cigarettes, uncomplicated; Z88.1 Allergy status to other antibiotic agents; Z88.6 Allergy status to analgesic agent; Z88.8 Allergy status to other drugs, medicaments and biological substances; Z79.52 Long term (current) use of systemic steroids; Z79.899 Other long term (current) drug therapy
CPT/HCPCS: 36415; 80048; 80076; 82550; 82553; 84443; 85025; 93005; 99284; G0480

== ENCOUNTER 2019-11-23 12:11 | Emergency (ER) | payer MEDICAID, OTHER ==
[~2019-11-23] VITALS: Ht 170.2 cm; Wt 115.0 kg
[~2019-11-23 12:11] MED LIST changes: +CYCL-707 PO; -CYCL10TA PO
[2019-11-23 15:16] LABS: HEMATOCRIT 47.8 % (36.0-47.0); MEAN CORPUSCULAR HEMOGLOBIN 30.8 pg (27.0-33.0); MEAN CORPUSCULAR HGB CONC 33.5 g/dl (32.0-36.5); MEAN CORPUSCULAR VOLUME 91.9 fl (80.0-96.0); PLATELET COUNT, AUTOMATED 361 10^3/uL (150-450); WHITE BLOOD COUNT 11.7 10^3/uL (4.0-10.0)
[2019-11-23 15:25] LABS: ACETAMINOPHEN LEVEL < 2.0 UG/ML (10.0-30.0); ALBUMIN 3.6 GM/DL (3.2-5.2); ALT/SGPT 27 U/L (12-78); BILIRUBIN,DIRECT < 0.1 MG/DL (0.0-0.2); BILIRUBIN,TOTAL 0.3 MG/DL (0.2-1.0); BLOOD UREA NITROGEN 11 MG/DL (7-18); CALCIUM LEVEL 9.2 MG/DL (8.5-10.1); CARBON DIOXIDE LEVEL 22 MEQ/L (21-32); CHLORIDE LEVEL 111 MEQ/L (98-107); CREATININE FOR GFR 0.91 MG/DL (0.55-1.30); ETHYL ALCOHOL (ETHANOL) 0.031 % (0.000-0.010); GLOMERULAR FILTRATION RATE > 60.0 (>51); GLUCOSE, FASTING 91 MG/DL (70-100); POTASSIUM SERUM 4.2 MEQ/L (3.5-5.1); SALICYLATE LEVEL 4.5 MG/DL (5.0-30.0); SODIUM LEVEL 142 MEQ/L (136-145); TOTAL PROTEIN 7.1 GM/DL (6.4-8.2)
[2019-11-23 15:35] LABS: AMPHETAMINES LEVEL URINE NEGATIVE (NEGATIVE); BARBITURATES URINE NEGATIVE (NEGATIVE); BENZODIAZEPINES URINE NEGATIVE (NEGATIVE); CANNABINOIDS URINE NEGATIVE (NEGATIVE); COCAINE METABOLITE URINE NEGATIVE (NEGATIVE); METHADONE URINE NEGATIVE (NEGATIVE); OPIATES URINE NEGATIVE (NEGATIVE); PHENCYCLIDINE URINE NEGATIVE (NEGATIVE)
[2019-11-23 18:44] VITALS: BP 134/65
== END 2019-11-23 19:10 | disposition home or self-care (01) ==
LOC: M ED 12:11
DX: F43.21 Adjustment disorder with depressed mood (principal); I25.10 Atherosclerotic heart disease of native coronary artery without angina pectoris; I11.9 Hypertensive heart disease without heart failure; E78.5 Hyperlipidemia, unspecified; F17.210 Nicotine dependence, cigarettes, uncomplicated; Z79.51 Long term (current) use of inhaled steroids; Z79.899 Other long term (current) drug therapy; Z88.1 Allergy status to other antibiotic agents; Z88.8 Allergy status to other drugs, medicaments and biological substances
CPT/HCPCS: 36415; 80048; 80076; 80307; 84443; 85027; 99284; G0480

== ENCOUNTER 2020-02-12 13:25 | Emergency (ER) | payer MEDICAID, OTHER ==
[~2020-02-12] VITALS: Ht 172.7 cm; Wt 106.4 kg
[2020-02-12] MEDS ORDERED: NITROGLYCERIN 0.4 MG SUBL TABLET SL STA (14:15)
[2020-02-12 14:33] LABS: BASO # 0.1 10^3/uL (0.0-0.2); BASO % 0.6 % (0.0-1.0); EOS # 0.2 10^3/uL (0.0-0.5); EOS % 1.5 % (0.0-3.0); HEMATOCRIT 45.1 % (36.0-47.0); HEMOGLOBIN 14.7 g/dl (12.0-15.5); LYMPH # 2.8 10^3/uL (1.5-5.0); MEAN CORPUSCULAR HEMOGLOBIN 29.9 pg (27.0-33.0); MEAN CORPUSCULAR HGB CONC 32.6 g/dl (32.0-36.5); MEAN CORPUSCULAR VOLUME 91.7 fl (80.0-96.0); MONO # 0.7 10^3/uL (0.0-0.8); MONO % 6.3 % (0.0-5.0); NEUTROPHILS # 6.9 10^3/uL (1.5-8.5); PLATELET COUNT, AUTOMATED 348 10^3/uL (150-450); RED BLOOD COUNT 4.92 10^6/uL (4.00-5.40); WHITE BLOOD COUNT 10.6 10^3/uL (4.0-10.0)
--- NOTE | 2020-02-12 14:36 | REP ---
INDICATION: CHEST PAIN. COMPARISON: 08/22/2018 two-view chest TECHNIQUE: AP upright portable FINDINGS: Lungs are well inflated. CP angle sharply defined without effusion there is no lateral pleural thickening apical scarring or dense consolidation. The atelectatic changes in the previous study are fully resolved without residual scarring. No cardiomegaly is noted but there is some mild venous hypertension without interstitial edema. The aorta and airway intact. No widening of the mediastinum. Visible of bones show degenerative changes spine and shoulders IMPRESSION: 1. Some venous hypertension without pulmonary edema pleural effusion or acute infiltrate. Heart size normal. No basilar scarring in the areas where there were extensive areas of subsegmental atelectasis and/or infiltrate on the previous exam in 08/22/2018. <Electronically signed by Israel Feliciano > 02/12/20 [id number]
[2020-02-12 14:44] LABS: INR 0.94; PROTHROMBIN TIME 12.8 SECONDS (12.5-14.3)
[2020-02-12 14:45] LABS: PARTIAL THROMBOPLASTIN TIME 26.3 SECONDS (24.2-38.5)
[2020-02-12 14:47] LABS: D-DIMER QUANT 482.38 ng/ml (<500)
[2020-02-12 15:02] LABS: ALBUMIN 3.4 GM/DL (3.2-5.2); ALT/SGPT 18 U/L (12-78); BILIRUBIN,DIRECT 0.1 MG/DL (0.0-0.2); BILIRUBIN,TOTAL 0.3 MG/DL (0.2-1.0); BLOOD UREA NITROGEN 13 MG/DL (7-18); CALCIUM LEVEL 9.1 MG/DL (8.5-10.1); CARBON DIOXIDE LEVEL 25 MEQ/L (21-32); CHLORIDE LEVEL 110 MEQ/L (98-107); CK-MB VALUE MASS < 1.0 NG/ML (<3.6); CPK CREATINE PHOSPHOKINASE 72 U/L (26-192); CREATININE FOR GFR 1.04 MG/DL (0.55-1.30); GLOMERULAR FILTRATION RATE 58.6 (>51); GLUCOSE, FASTING 100 MG/DL (70-100); LIPASE 185 U/L (73-393); MB/CK RELATIVE INDEX 1.39 (< OR =4); POTASSIUM SERUM 4.3 MEQ/L (3.5-5.1); SODIUM LEVEL 141 MEQ/L (136-145); TOTAL PROTEIN 6.4 GM/DL (6.4-8.2); TROPONIN I < 0.02 NG/ML (< 0.10)
[2020-02-12 15:46] VITALS: BP 132/72
--- NOTE | 2020-02-12 19:28 | ECGEPIP ---
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
== END 2020-02-12 16:00 | disposition left against medical advice (07) ==
LOC: EDBD 13:25 → M ED 13:25
DX: Z53.20 Procedure and treatment not carried out because of patient's decision for unspecified reasons (principal); I10 Essential (primary) hypertension; N28.1 Cyst of kidney, acquired; E78.5 Hyperlipidemia, unspecified; I25.10 Atherosclerotic heart disease of native coronary artery without angina pectoris; R07.9 Chest pain, unspecified; F31.9 Bipolar disorder, unspecified; Z88.6 Allergy status to analgesic agent; Z88.8 Allergy status to other drugs, medicaments and biological substances; Z90.49 Acquired absence of other specified parts of digestive tract

== ENCOUNTER 2020-03-28 12:59 | Emergency (ER) | payer OTHER ==
[~2020-03-28] VITALS: Ht 172.7 cm; Wt 106.7 kg
[2020-03-28 13:01] VITALS: BP 126/63
--- NOTE | 2020-03-28 13:45 | REP ---
INDICATION: injury. COMPARISON: Comparison right knee radiographs are from March 16, 2011.. TECHNIQUE: Five views. FINDINGS: Five views of the right knee demonstrate medial compartment osteoarthritic spurring. There is patellofemoral narrowing and mild spurring. There is also mild spurring at the superior pole of patella at the quadriceps tendon insertion.. No fracture or subluxation is seen. No opaque foreign body noted. IMPRESSION: Mild to moderate medial and patellofemoral compartment osteoarthritis. These changes are more pronounced than on the 2011 study. No acute bony abnormality is seen. No fracture seen.. <Electronically signed by Reymundo Osei > 03/28/20 [id number]
--- NOTE | 2020-03-28 16:22 | REP ---
INDICATION: fell/pain COMPARISON: None. TECHNIQUE: Frontal view of the pelvis with neutral and frog lateral views of the right hip. FINDINGS: Frontal view of the pelvis and two views of the right hip demonstrate generalized age-related changes. No acute fracture or dislocation. IMPRESSION: Normal age-appropriate pelvis and right hip series. No acute fracture or dislocation. <Electronically signed by Christophe Corbin > 03/28/20 [id number]
[2020-03-28] MEDS ORDERED: IBUP80TA PO (16:44)
[2020-03-28] MEDS ORDERED: KETOROLAC TROMETHAMINE 10 MG TAB PO ONE (16:45)
== END 2020-03-28 17:51 | disposition home or self-care (01) ==
LOC: M ED 12:59
DX: S80.911A Unspecified superficial injury of right knee, initial encounter (principal); Y92.9 Unspecified place or not applicable; Y93.9 Activity, unspecified; Y99.9 Unspecified external cause status; M17.11 Unilateral primary osteoarthritis, right knee; J45.909 Unspecified asthma, uncomplicated; K21.9 Gastro-esophageal reflux disease without esophagitis; K57.92 Diverticulitis of intestine, part unspecified, without perforation or abscess without bleeding; F17.200 Nicotine dependence, unspecified, uncomplicated; Z88.6 Allergy status to analgesic agent; Z88.8 Allergy status to other drugs, medicaments and biological substances

== ENCOUNTER 2020-07-20 13:57 | Emergency (ER) | payer OTHER ==
[~2020-07-20] VITALS: Ht 172.7 cm; Wt 106.3 kg
[~2020-07-20 13:57] MED LIST changes: +GABA-282 PO; -GABA-843 PO; +IBUP80TA PO; -LISI-542 PO; +LISI-898 PO
--- NOTE | 2020-07-20 14:46 | REP ---
INDICATION: CHEST PAIN COMPARISON: 02/12/2020 TECHNIQUE: Portable AP view of the chest FINDINGS: The mediastinum and cardiac silhouette are stable and within normal limits for portable technique. The lung georges are clear without acute consolidation, effusion, or pneumothorax. Skeletal structures are intact. IMPRESSION: No acute cardiopulmonary process appreciated. <Electronically signed by Christophe Corbin > 07/20/20 [id number]
[2020-07-20 15:06] LABS: BASO # 0.1 10^3/uL (0.0-0.2); BASO % 0.5 % (0.0-1.0); EOS # 0.1 10^3/uL (0.0-0.5); EOS % 1.4 % (0.0-3.0); HEMATOCRIT 46.6 % (36.0-47.0); HEMOGLOBIN 15.1 g/dl (12.0-15.5); LYMPH # 2.8 10^3/uL (1.5-5.0); LYMPH % 28.7 % (24.0-44.0); MEAN CORPUSCULAR HEMOGLOBIN 29.3 pg (27.0-33.0); MEAN CORPUSCULAR HGB CONC 32.4 g/dl (32.0-36.5); MEAN CORPUSCULAR VOLUME 90.5 fl (80.0-96.0); MONO # 0.6 10^3/uL (0.0-0.8); MONO % 5.7 % (2.0-8.0); NEUTROPHILS # 6.2 10^3/uL (1.5-8.5); PLATELET COUNT, AUTOMATED 349 10^3/uL (150-450); RED BLOOD COUNT 5.15 10^6/uL (4.00-5.40); WHITE BLOOD COUNT 9.8 10^3/uL (4.0-10.0)
[2020-07-20 15:34] LABS: ALBUMIN 3.5 GM/DL (3.2-5.2); ALT/SGPT 18 U/L (12-78); BILIRUBIN,DIRECT < 0.1 MG/DL (0.0-0.2); BILIRUBIN,TOTAL 0.3 MG/DL (0.2-1.0); BLOOD UREA NITROGEN 11 MG/DL (7-18); CALCIUM LEVEL 9.4 MG/DL (8.5-10.1); CARBON DIOXIDE LEVEL 25 MEQ/L (21-32); CHLORIDE LEVEL 108 MEQ/L (98-107); CREATININE FOR GFR 0.92 MG/DL (0.55-1.30); GLOMERULAR FILTRATION RATE > 60.0 (>51); GLUCOSE, FASTING 93 MG/DL (70-100); LIPASE 116 U/L (73-393); NT-PRO BNP 59 PG/ML (<125); POTASSIUM SERUM 4.2 MEQ/L (3.5-5.1); SODIUM LEVEL 140 MEQ/L (136-145); TOTAL PROTEIN 6.7 GM/DL (6.4-8.2)
[2020-07-20] MEDS ORDERED: ISOVUE-370 76% 100ML VIAL As Ordered ONE (15:57)
--- NOTE | 2020-07-20 16:23 | REP ---
INDICATION: CP COMPARISON: None. TECHNIQUE: Axial contrast enhanced images from the thoracic inlet to the upper abdomen using pulmonary embolus technique with multiplanar re-formations. 75 ml Isovue 370 intravenous contrast material administered without complication. This CT examination was performed using the following dose reduction techniques: Automated exposure control, adjustment of mA and/or kv according to the patient's size, and use of iterative reconstruction technique. FINDINGS: Satisfactory enhancement of the pulmonary vasculature is achieved and no filling defects are identified to suggest pulmonary embolus. Further evaluation of the mediastinum demonstrates normal thoracic aorta, heart and pericardium. The bilateral lung georges are well aerated and clear without consolidation pleural effusion or pneumothorax. Tracheobronchial tree is patent. No nodule or mass lesion is identified. No adenopathy noted. Surrounding musculoskeletal structures intact IMPRESSION: No evidence for pulmonary embolus. No acute mediastinal or pleural parenchymal process. <Electronically signed by Christophe Corbin > 07/20/20 [id number]
[2020-07-20 20:01] VITALS: BP 111/63
--- NOTE | 2020-07-21 12:55 | ECGEPIP ---
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
== END 2020-07-20 20:21 | disposition home or self-care (01) ==
LOC: EDBD 13:57 → M ED 13:57
DX: R07.9 Chest pain, unspecified (principal); I45.2 Bifascicular block; I25.2 Old myocardial infarction; I10 Essential (primary) hypertension; E78.5 Hyperlipidemia, unspecified; F33.9 Major depressive disorder, recurrent, unspecified; F17.200 Nicotine dependence, unspecified, uncomplicated; Z88.1 Allergy status to other antibiotic agents; Z88.8 Allergy status to other drugs, medicaments and biological substances; Z87.19 Personal history of other diseases of the digestive system; Z95.1 Presence of aortocoronary bypass graft; Z91.5 Personal history of self-harm
CPT/HCPCS: 71045; 71275; 80048; 80076; 83690; 83880; 84443; 85025; 93005; 93041; 94760; 99285; Q9967

== ENCOUNTER 2020-10-15 13:22 | Emergency (ER) | payer OTHER ==
[~2020-10-15] VITALS: Ht 172.7 cm; Wt 103.0 kg
[2020-10-15 17:14] VITALS: BP 130/77
== END 2020-10-15 17:20 | disposition home or self-care (01) ==
LOC: M ED 13:22
DX: F45.0 Somatization disorder (principal); F42.4 Excoriation (skin-picking) disorder; M79.672 Pain in left foot; I25.2 Old myocardial infarction; I25.10 Atherosclerotic heart disease of native coronary artery without angina pectoris; E78.5 Hyperlipidemia, unspecified; I10 Essential (primary) hypertension; K57.30 Diverticulosis of large intestine without perforation or abscess without bleeding; F17.200 Nicotine dependence, unspecified, uncomplicated; Z88.1 Allergy status to other antibiotic agents; Z88.6 Allergy status to analgesic agent; Z88.8 Allergy status to other drugs, medicaments and biological substances; Z79.899 Other long term (current) drug therapy

== ENCOUNTER 2021-01-03 20:02 | Emergency (ER) | payer OTHER ==
[~2021-01-03] VITALS: Ht 172.7 cm; Wt 102.5 kg
--- NOTE | 2021-01-03 21:02 | REPVR ---
PROCEDURE INFORMATION: Exam: XR Left Ankle Exam date and time: 01/03/2021 8:26 PM Age: 55 years old Clinical indication: Pain; Ankle; Left; Additional info: Rolled left ankle TECHNIQUE: Imaging protocol: XR Left ankle. Views: 3 or more views. COMPARISON: CR Ankle, complete 09/29/2016 5:14 PM FINDINGS: Bones/joints: Small plantar calcaneal spur. Otherwise unremarkable. Soft tissues: Normal. IMPRESSION: No acute findings. Electronically signed by: Kaushik Villalobos On 01/03/2021 21:02:05 PM
--- NOTE | 2021-01-03 21:03 | REPVR ---
PROCEDURE INFORMATION: Exam: XR Left Foot Exam date and time: 01/03/2021 8:26 PM Age: 55 years old Clinical indication: Pain; Ankle; Left; Additional info: Rolled left ankle TECHNIQUE: Imaging protocol: XR Left foot. Views: 3 or more views. COMPARISON: CR Foot, complete 07/07/2015 10:34 AM FINDINGS: Bones/joints: Normal. Soft tissues: Normal. IMPRESSION: No acute findings. Electronically signed by: Kaushik Villalobos On 01/03/2021 21:03:01 PM
--- NOTE | 2021-01-03 23:38 | REPVR ---
PROCEDURE INFORMATION: Exam: XR Left Tibia and Fibula Exam date and time: 01/03/2021 10:25 PM Age: 55 years old Clinical indication: Pain; Lower leg; Left; Additional info: Fall TECHNIQUE: Imaging protocol: XR Left tibia and fibula. Views: 2 views. COMPARISON: CR Ankle, complete LEFT 01/03/2021 8:06 PM FINDINGS: Bones/joints: In the AP view, there is a cortical step-off involving the medial aspect of the left medial tibial plateau. There is mild marginal spurring from the medial periphery of the medial tibial plateau. The left fibula is intact. Soft tissues: There is a spur arising from the superior pole of the patella at the insertion of the left quadriceps tendon, which is compatible with a left quadriceps enthesopathy. IMPRESSION: Cortical step-off involving the medial aspect of the left medial tibial plateau, which may represent an acute nondisplaced fracture or may be secondary to degenerative spurring. Electronically signed by: Matt Rodriges On 01/03/2021 23:38:14 PM
[2021-01-04 00:10] VITALS: BP 136/72
== END 2021-01-04 00:11 | disposition home or self-care (01) ==
LOC: M ED 20:02
DX: S93.402A Sprain of unspecified ligament of left ankle, initial encounter (principal); M25.562 Pain in left knee; X50.0XXA Overexertion from strenuous movement or load, initial encounter; Y92.009 Unspecified place in unspecified non-institutional (private) residence as the place of occurrence of the external cause; Y93.9 Activity, unspecified; Y99.9 Unspecified external cause status; F31.9 Bipolar disorder, unspecified; F41.9 Anxiety disorder, unspecified; F20.9 Schizophrenia, unspecified; M54.30 Sciatica, unspecified side; K21.9 Gastro-esophageal reflux disease without esophagitis; J45.909 Unspecified asthma, uncomplicated; R56.9 Unspecified convulsions; Z98.51 Tubal ligation status; E78.5 Hyperlipidemia, unspecified; Z87.820 Personal history of traumatic brain injury; Z88.8 Allergy status to other drugs, medicaments and biological substances

== ENCOUNTER 2021-06-17 14:47 | Emergency (ER) | payer OTHER ==
[~2021-06-17] VITALS: Ht 172.7 cm; Wt 98.6 kg
[~2021-06-17 14:47] MED LIST changes: -HALO5TA PO; +HALO5TAB33 PO; -LISI-898 PO; +LISI5TAB11 PO
[2021-06-17 15:30] LABS: BASO # 0.1 10^3/uL (0.0-0.2); BASO % 0.4 % (0.0-1.0); EOS # 0.1 10^3/uL (0.0-0.5); HEMOGLOBIN 14.7 g/dl (12.0-15.5); LYMPH % 16.9 % (24.0-44.0); MEAN CORPUSCULAR HEMOGLOBIN 29.6 pg (27.0-33.0); MEAN CORPUSCULAR HGB CONC 32.7 g/dl (32.0-36.5); MEAN CORPUSCULAR VOLUME 90.7 fl (80.0-96.0); MONO # 0.9 10^3/uL (0.0-0.8); MONO % 7.4 % (2.0-8.0); NEUTROPHILS # 8.7 10^3/uL (1.5-8.5); NEUTROPHILS % 73.8 % (36.0-66.0); PLATELET COUNT, AUTOMATED 314 10^3/uL (150-450); RED BLOOD COUNT 4.96 10^6/uL (4.00-5.40); WHITE BLOOD COUNT 11.8 10^3/uL (4.0-10.0)
[2021-06-17 15:58] LABS: ALBUMIN 3.5 GM/DL (3.2-5.2); ALT/SGPT 22 U/L (12-78); BILIRUBIN,DIRECT 0.1 MG/DL (0.0-0.2); BILIRUBIN,TOTAL 0.5 MG/DL (0.2-1.0); BLOOD UREA NITROGEN 13 MG/DL (7-18); CALCIUM LEVEL 9.1 MG/DL (8.5-10.1); CARBON DIOXIDE LEVEL 24 MEQ/L (21-32); CHLORIDE LEVEL 109 MEQ/L (98-107); CREATININE FOR GFR 0.88 MG/DL (0.55-1.30); GLOMERULAR FILTRATION RATE > 60.0 (>51); GLUCOSE, FASTING 89 MG/DL (70-100); LIPASE 115 U/L (73-393); SODIUM LEVEL 141 MEQ/L (136-145); TOTAL PROTEIN 6.6 GM/DL (6.4-8.2)
[2021-06-17] MEDS ORDERED: ISOVUE-370 76% 100ML VIAL As Ordered ONE (16:31)
[2021-06-17 16:41] LABS: BILIRUBIN, URINE MANUAL NEGATIVE (NEGATIVE); GLUCOSE, URINE (UA) MANUAL NEGATIVE (NEGATIVE); KETONE, URINE MANUAL NEGATIVE (NEGATIVE); UROBILINOGEN, URINE MANUAL NORMAL (NORMAL)
[2021-06-17 16:50] LABS: BACTERIA, URINE SMALL AMOUNT; MUCUS, URINE LARGE AMOUNT (NEGATIVE); RBC, URINE 0-1 /hpf (0-3); SQUAMOUS EPITHELIAL CELL URINE LARGE AMOUNT /hpf (SMALL AMT)
[2021-06-17 16:51] LABS: HYALINE CAST, URINE NONE SEEN /lpf (0-1)
[2021-06-17 18:03] VITALS: BP 139/87
== END 2021-06-17 18:05 | disposition home or self-care (01) ==
LOC: EDBD 14:47 → M ED 14:47
DX: M54.50 Low back pain, unspecified (principal); R10.9 Unspecified abdominal pain; K21.9 Gastro-esophageal reflux disease without esophagitis; I10 Essential (primary) hypertension; F31.9 Bipolar disorder, unspecified; G43.909 Migraine, unspecified, not intractable, without status migrainosus; F60.3 Borderline personality disorder; F17.200 Nicotine dependence, unspecified, uncomplicated; Z88.6 Allergy status to analgesic agent; Z88.8 Allergy status to other drugs, medicaments and biological substances
CPT/HCPCS: 36415; 74177; 80048; 80076; 81000; 83690; 85025; 87086; 93041; 99285; Q9967

== ENCOUNTER → 2021-07-04 | Outpatient (CLI) | payer OTHER | LOC: M WHC 13:24 | PROVIDERS: ATTEND Nurse Practitioner Family | DX: N63.10 Unspecified lump in the right breast, unspecified quadrant (principal) ==

== ENCOUNTER 2021-12-01 14:36 | Emergency (ER) | payer OTHER ==
[~2021-12-01] VITALS: Ht 172.7 cm; Wt 97.3 kg
[2021-12-01 17:12] LABS: BASO # 0.1 10^3/uL (0.0-0.2); BASO % 0.5 % (0.0-1.0); EOS # 0.2 10^3/uL (0.0-0.5); HEMATOCRIT 44.3 % (36.0-47.0); HEMOGLOBIN 14.8 g/dl (12.0-15.5); LYMPH # 2.9 10^3/uL (1.5-5.0); LYMPH % 29.3 % (24.0-44.0); MEAN CORPUSCULAR HEMOGLOBIN 30.1 pg (27.0-33.0); MEAN CORPUSCULAR HGB CONC 33.4 g/dl (32.0-36.5); MEAN CORPUSCULAR VOLUME 90.2 fl (80.0-96.0); MONO # 0.6 10^3/uL (0.0-0.8); MONO % 6.5 % (2.0-8.0); NEUTROPHILS % 61.2 % (36.0-66.0); PLATELET COUNT, AUTOMATED 338 10^3/uL (150-450); RED BLOOD COUNT 4.91 10^6/uL (4.00-5.40); WHITE BLOOD COUNT 9.8 10^3/uL (4.0-10.0)
[2021-12-01] MEDS ORDERED: ISOVUE-370 76% 100ML VIAL As Ordered ONE (17:21)
[2021-12-01 17:33] LABS: INR 0.98; PROTHROMBIN TIME 13.4 SECONDS (12.7-14.5)
[2021-12-01 17:34] LABS: PARTIAL THROMBOPLASTIN TIME 27.4 SECONDS (25.9-37.0)
[2021-12-01 19:14] VITALS: BP 150/70
== END 2021-12-01 19:26 | disposition home or self-care (01) ==
LOC: M ED 14:36
DX: H53.8 Other visual disturbances (principal); Z87.828 Personal history of other (healed) physical injury and trauma; I25.2 Old myocardial infarction; I10 Essential (primary) hypertension; E78.5 Hyperlipidemia, unspecified; Z95.5 Presence of coronary angioplasty implant and graft; Z88.1 Allergy status to other antibiotic agents; Z88.8 Allergy status to other drugs, medicaments and biological substances
CPT/HCPCS: 36415; 70450; 70496; 80047; 85025; 85610; 85730; 99284; Q9967

== ENCOUNTER → 2022-02-28 | Outpatient (REF) | payer OTHER ==
[2022-02-28 18:14] LABS: BASO # 0.1 10^3/uL (0.0-0.2); BASO % 0.6 % (0.0-1.0); EOS # 0.1 10^3/uL (0.0-0.5); EOS % 1.1 % (0.0-3.0); HEMATOCRIT 47.8 % (36.0-47.0); HEMOGLOBIN 15.2 g/dl (12.0-15.5); LYMPH # 3.3 10^3/uL (1.5-5.0); LYMPH % 33.2 % (24.0-44.0); MEAN CORPUSCULAR HEMOGLOBIN 29.5 pg (27.0-33.0); MEAN CORPUSCULAR HGB CONC 31.8 g/dl (32.0-36.5); MEAN CORPUSCULAR VOLUME 92.6 fl (80.0-96.0); MONO # 0.5 10^3/uL (0.0-0.8); MONO % 5.4 % (2.0-8.0); NEUTROPHILS # 5.9 10^3/uL (1.5-8.5); NEUTROPHILS % 59.3 % (36.0-66.0); PLATELET COUNT, AUTOMATED 354 10^3/uL (150-450); RED BLOOD COUNT 5.16 10^6/uL (4.00-5.40)
[2022-02-28 19:15] LABS: TOTAL 25(OH) VITAMIN D 14.9 NG/ML (20.0-100.0)
[2022-02-28 19:16] LABS: THYROID STIMULATING HORMONE 2.474 uIU/ML (0.55-4.78)
[2022-02-28 19:40] LABS: HIV 1&2 SCREEN CENTAUR NEGATIVE (NEGATIVE)
[2022-02-28 19:50] LABS: ALBUMIN 3.9 G/DL (3.2-5.2); ALKALINE PHOSPHATASE 109 U/L (46-116); ALT/SGPT 18 U/L (7.0-40); AST/SGOT 17 U/L (<34); BILIRUBIN,TOTAL 0.4 MG/DL (0.3-1.2); BLOOD UREA NITROGEN 11 MG/DL (9-23); CALCIUM LEVEL 9.9 MG/DL (8.5-10.1); CARBON DIOXIDE LEVEL 28 MMOL/L (20-31); CHLORIDE LEVEL 105 MMOL/L (98-107); CHOLESTEROL LEVEL 266 MG/DL (<200); CHOLESTEROL RISK RATIO 5.99 (<5); CREATININE FOR GFR 0.99 MG/DL (0.55-1.30); GLOMERULAR FILTRATION RATE > 60.0 (>51); GLUCOSE, FASTING 84 MG/DL (60-100); HDL CHOLESTEROL 44.4 MG/DL (>40); NON-HDL-C 222 MG/DL; POTASSIUM SERUM 4.6 MMOL/L (3.5-5.1); SODIUM LEVEL 139 MMOL/L (136-145); TRIGLYCERIDES LEVEL 243 MG/DL (<150)
== END ==
LOC: M LAB REF 17:17
PROVIDERS: ATTEND Nurse Practitioner Family
DX: K43.2 Incisional hernia without obstruction or gangrene (principal); Z13.228 Encounter for screening for other metabolic disorders; Z11.3 Encounter for screening for infections with a predominantly sexual mode of transmission; A64 Unspecified sexually transmitted disease

== ENCOUNTER 2022-03-12 09:14 | Inpatient (IN) | payer MEDICAID, OTHER ==
[~2022-03-12] VITALS: Ht 172.7 cm; Wt 93.8 kg
[2022-03-12 12:36] LABS: HEMATOCRIT 45.5 % (36.0-47.0); HEMOGLOBIN 14.6 g/dl (12.0-15.5); MEAN CORPUSCULAR HEMOGLOBIN 29.6 pg (27.0-33.0); MEAN CORPUSCULAR HGB CONC 32.1 g/dl (32.0-36.5); MEAN CORPUSCULAR VOLUME 92.3 fl (80.0-96.0); PLATELET COUNT, AUTOMATED 314 10^3/uL (150-450); RED BLOOD COUNT 4.93 10^6/uL (4.00-5.40); WHITE BLOOD COUNT 9.9 10^3/uL (4.0-10.0)
[2022-03-12 12:54] LABS: AMPHETAMINES LEVEL URINE NEGATIVE (NEGATIVE); BENZODIAZEPINES URINE NEGATIVE (NEGATIVE)
[2022-03-12 12:55] LABS: BARBITURATES URINE NEGATIVE (NEGATIVE); CANNABINOIDS URINE NEGATIVE (NEGATIVE); COCAINE METABOLITE URINE NEGATIVE (NEGATIVE); OPIATES URINE NEGATIVE (NEGATIVE); PHENCYCLIDINE URINE NEGATIVE (NEGATIVE)
[2022-03-12 13:04] LABS: RSV AMPLIFICATION NEGATIVE (NEGATIVE)
[2022-03-12 13:06] LABS: ETHYL ALCOHOL (ETHANOL) 0.003 % (0.000-0.010); METHADONE URINE NEGATIVE (NEGATIVE)
[2022-03-12 13:07] LABS: ACETAMINOPHEN LEVEL < 2.0 UG/ML (10.0-20.0)
[2022-03-12 13:08] LABS: BILIRUBIN,DIRECT < 0.1 MG/DL (<0.4); SALICYLATE LEVEL < 3.0 MG/DL (<30)
[2022-03-12 13:32] LABS: ALBUMIN 3.5 G/DL (3.2-5.2); ALKALINE PHOSPHATASE 109 U/L (46-116); ALT/SGPT 12 U/L (7.0-40); AST/SGOT 14 U/L (<34); BILIRUBIN,TOTAL 0.3 MG/DL (0.3-1.2); BLOOD UREA NITROGEN 10 MG/DL (9-23); CALCIUM LEVEL 9.6 MG/DL (8.5-10.1); CARBON DIOXIDE LEVEL 27 MMOL/L (20-31); CHLORIDE LEVEL 107 MMOL/L (98-107); GLOMERULAR FILTRATION RATE 54.5 (>51); GLUCOSE, FASTING 87 MG/DL (60-100); POTASSIUM SERUM 4.3 MMOL/L (3.5-5.1); SODIUM LEVEL 140 MMOL/L (136-145); THYROID STIMULATING HORMONE 2.575 uIU/ML (0.55-4.78); TOTAL PROTEIN 6.7 G/DL (5.7-8.2)
[2022-03-12] MEDS ORDERED: ROSU20TA5 PO (15:37)
[2022-03-12] MEDS ORDERED: ERGO500029 PO (15:37)
[2022-03-12] MEDS ORDERED: NITR0.4S14 PO (15:37)
[2022-03-12] MEDS ORDERED: hydrOXYzine 50 MG TAB PO PRN (15:40)
[2022-03-12] MEDS ORDERED: HOME MED LIST COMPLETE! XX SCH (15:40)
[2022-03-12] MEDS ORDERED: traZODone 50 MG TAB PO PRN (15:40)
[2022-03-12] MEDS ORDERED: OLANZapine ORAL DISINTEGRATING TAB 5MG PO PRN (15:40)
[2022-03-12] MEDS ORDERED: MOM 30ML SUSPENSION UDC PO PRN (15:40)
[2022-03-12] MEDS ORDERED: MAALOX 30 ML SUSP *UDC PO PRN (15:40)
[2022-03-12] MEDS ORDERED: ACETAMINOPHEN TAB 650MG DOSE (2X325MG) PO PRN (15:40)
[2022-03-12 18:18] VITALS: BP 128/74
[2022-03-13] MEDS: NICOTINE 21MG/24HR 1 EA TRANSDERMAL TD SCH (10:18)
[2022-03-13 20:17] VITALS: BP 140/63
[2022-03-13] MEDS: OLANZapine 5 MG TAB PO SCH (20:29)
[2022-03-14 06:27] VITALS: BP 111/64
[2022-03-14] MEDS: OLANZapine 5 MG TAB PO SCH ×2 (08:51→20:15)
[2022-03-14] MEDS: NICOTINE 21MG/24HR 1 EA TRANSDERMAL TD SCH (08:53)
[2022-03-14 18:05] VITALS: BP 111/62
[2022-03-15 06:36] VITALS: BP 173/60
[2022-03-15] MEDS ORDERED: NICO21PAT TD (07:57)
[2022-03-15] MEDS ORDERED: OLAN15TA13 PO (07:57)
[2022-03-15] MEDS: OLANZapine 5 MG TAB PO SCH (08:48)
[2022-03-15] MEDS: NICOTINE 21MG/24HR 1 EA TRANSDERMAL TD SCH (08:49)
== END 2022-03-15 13:03 | disposition home or self-care (01) | DRG 750 ==
LOC: M ED 09:14 → M PSY 15:40 → M ED INP 15:40 → M PSY 18:06
PROVIDERS: ADMIT Student in an Organized Health Care Education/Training Program; ATTEND Psychiatry & Neurology Psychiatry
DX: F20.9 Schizophrenia, unspecified (principal); E78.5 Hyperlipidemia, unspecified; F17.200 Nicotine dependence, unspecified, uncomplicated; Z88.8 Allergy status to other drugs, medicaments and biological substances; Z79.899 Other long term (current) drug therapy; I25.10 Atherosclerotic heart disease of native coronary artery without angina pectoris

== ENCOUNTER 2022-04-21 21:26 | Inpatient (IN) | payer MEDICAID ==
[~2022-04-21] VITALS: Ht 172.7 cm; Wt 94.1 kg
[~2022-04-21 21:26] MED LIST changes: +ALBU6.7H6 INH; +DIPH-435 PO; -DIPH25CA32 PO; +ERGO500029 PO; +NITR0.4S14 PO; +OLAN15TA13 PO; +ROSU20TA5 PO
[2022-04-21 23:06] LABS: HEMATOCRIT 47.3 % (36.0-47.0); HEMOGLOBIN 15.4 g/dl (12.0-15.5); MEAN CORPUSCULAR HEMOGLOBIN 29.5 pg (27.0-33.0); MEAN CORPUSCULAR HGB CONC 32.6 g/dl (32.0-36.5); MEAN CORPUSCULAR VOLUME 90.6 fl (80.0-96.0); PLATELET COUNT, AUTOMATED 341 10^3/uL (150-450); RED BLOOD COUNT 5.22 10^6/uL (4.00-5.40); WHITE BLOOD COUNT 9.9 10^3/uL (4.0-10.0)
[2022-04-21 23:18] LABS: AMPHETAMINES LEVEL URINE NEGATIVE (NEGATIVE); BARBITURATES URINE NEGATIVE (NEGATIVE); BENZODIAZEPINES URINE NEGATIVE (NEGATIVE); CANNABINOIDS URINE NEGATIVE (NEGATIVE); COCAINE METABOLITE URINE NEGATIVE (NEGATIVE); METHADONE URINE NEGATIVE (NEGATIVE); OPIATES URINE NEGATIVE (NEGATIVE); PHENCYCLIDINE URINE NEGATIVE (NEGATIVE)
[2022-04-21 23:20] LABS: ETHYL ALCOHOL (ETHANOL) 0.003 % (0.000-0.010)
[2022-04-21 23:21] LABS: SALICYLATE LEVEL < 3.0 MG/DL (<30)
[2022-04-21 23:22] LABS: ACETAMINOPHEN LEVEL < 2.0 UG/ML (10.0-20.0); ALBUMIN 3.7 G/DL (3.2-5.2); ALKALINE PHOSPHATASE 123 U/L (46-116); ALT/SGPT 13 U/L (7.0-40); AST/SGOT 13 U/L (<34); BILIRUBIN,DIRECT < 0.1 MG/DL (<0.4); BILIRUBIN,TOTAL 0.3 MG/DL (0.3-1.2); BLOOD UREA NITROGEN 12 MG/DL (9-23); CALCIUM LEVEL 9.6 MG/DL (8.5-10.1); CARBON DIOXIDE LEVEL 24 MMOL/L (20-31); CHLORIDE LEVEL 108 MMOL/L (98-107); CREATININE FOR GFR 0.92 MG/DL (0.55-1.30); GLOMERULAR FILTRATION RATE > 60.0 (>51); GLUCOSE, FASTING 99 MG/DL (60-100); POTASSIUM SERUM 4.5 MMOL/L (3.5-5.1); SODIUM LEVEL 139 MMOL/L (136-145); TOTAL PROTEIN 6.7 G/DL (5.7-8.2)
[2022-04-21 23:24] LABS: THYROID STIMULATING HORMONE 4.068 uIU/ML (0.55-4.78)
[2022-04-21 23:25] LABS: RSV AMPLIFICATION NEGATIVE (NEGATIVE)
[2022-04-21] MEDS ORDERED: HOME MED LIST COMPLETE! XX SCH (23:35)
[2022-04-21 23:43] LABS: HCG, SERUM QUALITATIVE NEGATIVE (NEGATIVE)
[2022-04-22] MEDS ORDERED: NICOTINE 21MG/24HR 1 EA TRANSDERMAL TD ONE (06:55)
[2022-04-23] MEDS ORDERED: OLANZapine ORAL DISINTEGRATING TAB 5MG PO PRN (20:40)
[2022-04-23] MEDS ORDERED: traZODone 50 MG TAB PO PRN (20:40)
[2022-04-23] MEDS ORDERED: MAALOX 30 ML SUSP *UDC PO PRN (20:40)
[2022-04-23] MEDS ORDERED: MOM 30ML SUSPENSION UDC PO PRN (20:40)
[2022-04-23 21:45] VITALS: BP 150/72
[2022-04-24 06:19] VITALS: BP 149/75
[2022-04-24] MEDS: NICOTINE 21MG/24HR 1 EA TRANSDERMAL TD SCH (09:07)
[2022-04-24] MEDS: ACETAMINOPHEN TAB 650MG DOSE (2X325MG) PO PRN (15:37)
[2022-04-24 18:35] VITALS: BP 135/87
[2022-04-24] MEDS: OLANZapine 5 MG TAB PO SCH (22:58)
[2022-04-25 06:37] VITALS: BP 110/55
[2022-04-25] MEDS: ACETAMINOPHEN TAB 650MG DOSE (2X325MG) PO PRN (07:35)
[2022-04-25] MEDS: OLANZapine 5 MG TAB PO SCH ×2 (08:07→21:17)
[2022-04-25] MEDS: NICOTINE 21MG/24HR 1 EA TRANSDERMAL TD SCH (08:10)
[2022-04-25 19:05] VITALS: BP 123/72
[2022-04-26 06:25] VITALS: BP 151/68
[2022-04-26] MEDS: OLANZapine 5 MG TAB PO SCH (08:17)
[2022-04-26] MEDS: NICOTINE 21MG/24HR 1 EA TRANSDERMAL TD SCH (09:00)
[2022-04-26] MEDS ORDERED: NICO21PAT TD (10:30)
[2022-04-26] MEDS ORDERED: OLAN1TAB16 PO (10:30)
== END 2022-04-26 15:10 | disposition home or self-care (01) | DRG 750 ==
LOC: M ED 21:26 → M ED INP 04-23 20:38 → M PSY 04-23 21:33
PROVIDERS: ADMIT Student in an Organized Health Care Education/Training Program; ATTEND Student in an Organized Health Care Education/Training Program
DX: F20.9 Schizophrenia, unspecified (principal); F43.9 Reaction to severe stress, unspecified; I25.10 Atherosclerotic heart disease of native coronary artery without angina pectoris; E78.5 Hyperlipidemia, unspecified; Z90.49 Acquired absence of other specified parts of digestive tract; F17.210 Nicotine dependence, cigarettes, uncomplicated; Z80.3 Family history of malignant neoplasm of breast; Z20.822 Contact with and (suspected) exposure to COVID-19; K44.9 Diaphragmatic hernia without obstruction or gangrene; F14.959 Cocaine use, unspecified with cocaine-induced psychotic disorder, unspecified; Z91.14 Patient's other noncompliance with medication regimen; Z88.5 Allergy status to narcotic agent; Z88.8 Allergy status to other drugs, medicaments and biological substances

== ENCOUNTER 2023-05-24 09:01 | Emergency (ER) | payer OTHER ==
[~2023-05-24] VITALS: Ht 172.7 cm; Wt 100.7 kg
[~2023-05-24 09:01] MED LIST changes: -BUPR-71; -LITH150C; -LUMA21CA
[2023-05-24] MEDS ORDERED: LITH150C (09:24)
[2023-05-24] MEDS ORDERED: BUPR-71 (09:24)
[2023-05-24] MEDS ORDERED: LUMA21CA (09:24)
[2023-05-24] MEDS ORDERED: AMOX875T2 PO (10:01)
[2023-05-24] MEDS: AUGMENTIN 875 MG TAB PO ONE (10:10)
[2023-05-24 10:13] VITALS: BP 132/59; TEMP 97.8; O2SAT 100
== END 2023-05-24 10:17 | disposition home or self-care (01) ==
LOC: M ED 09:01
DX: K04.7 Periapical abscess without sinus (principal); K02.9 Dental caries, unspecified; I25.2 Old myocardial infarction; I10 Essential (primary) hypertension; E78.5 Hyperlipidemia, unspecified; F17.200 Nicotine dependence, unspecified, uncomplicated; Z86.79 Personal history of other diseases of the circulatory system; Z88.1 Allergy status to other antibiotic agents; Z88.8 Allergy status to other drugs, medicaments and biological substances; Z79.2 Long term (current) use of antibiotics; Z79.899 Other long term (current) drug therapy

== ENCOUNTER → 2023-05-24 | Outpatient (CLI) | payer OTHER ==
[~2023-05-24] MED LIST changes: -ASPI-161 PO; +ASPI-615 PO; +BUPR-71; +LITH150C; +LUMA21CA; +OLAN1TAB16 PO; -ROSU20TA5 PO; +ROSU20TA61 PO
[2023-05-24 09:35] LABS: BASO % 0.4 % (0.0-1.0); EOS # 0.2 10^3/uL (0.0-0.5); EOS % 2.1 % (0.0-3.0); HEMATOCRIT 45.9 % (36.0-47.0); HEMOGLOBIN 14.8 g/dl (12.0-15.5); LYMPH # 2.1 10^3/uL (1.5-5.0); LYMPH % 22.2 % (24.0-44.0); MEAN CORPUSCULAR HEMOGLOBIN 29.8 pg (27.0-33.0); MEAN CORPUSCULAR HGB CONC 32.2 g/dl (32.0-36.5); MEAN CORPUSCULAR VOLUME 92.5 fl (80.0-96.0); MONO # 0.8 10^3/uL (0.0-0.8); MONO % 8.3 % (2.0-8.0); NEUTROPHILS # 6.2 10^3/uL (1.5-8.5); NEUTROPHILS % 66.5 % (36.0-66.0); PLATELET COUNT, AUTOMATED 347 10^3/uL (150-450); RED BLOOD COUNT 4.96 10^6/uL (4.00-5.40); WHITE BLOOD COUNT 9.3 10^3/uL (4.0-10.0)
[2023-05-24 10:02] LABS: IRON (FE) 42 UG/DL (50-170); LITHIUM LEVEL 0.54 MMOL/L (1.0-1.20)
[2023-05-24 10:03] LABS: ALBUMIN 3.4 G/DL (3.2-5.2); ALKALINE PHOSPHATASE 134 U/L (46-116); ALT/SGPT 13 U/L (7.0-40); AST/SGOT < 8 U/L (<34); BILIRUBIN,TOTAL 0.3 MG/DL (0.3-1.2); BLOOD UREA NITROGEN 9 MG/DL (9-23); CALCIUM LEVEL 9.7 MG/DL (8.5-10.1); CARBON DIOXIDE LEVEL 25 MMOL/L (20-31); CHLORIDE LEVEL 107 MMOL/L (98-107); CHOLESTEROL LEVEL 269 MG/DL (<200); CREATININE FOR GFR 0.97 MG/DL (0.55-1.30); GLOMERULAR FILTRATION RATE > 60.0 (>51); GLUCOSE, FASTING 99 MG/DL (60-100); HDL CHOLESTEROL 48.9 MG/DL (>40); LDL CHOLESTEROL 186.7 MG/DL (<100); NON-HDL-C 220.1 MG/DL; POTASSIUM SERUM 4.7 MMOL/L (3.5-5.1); SODIUM LEVEL 137 MMOL/L (136-145); TOTAL PROTEIN 6.4 G/DL (5.7-8.2); TRIGLYCERIDES LEVEL 167 MG/DL (<150)
[2023-05-24 11:20] LABS: FERRITIN 115.4 NG/ML (7.3-270.7); THYROID STIMULATING HORMONE 5.571 uIU/ML (0.55-4.78)
[2023-05-24 11:21] LABS: FOLATE 11.76 NG/ML (>5.4); TOTAL 25(OH) VITAMIN D 15.3 NG/ML (20.0-100.0)
== END ==
LOC: M LAB 08:21
PROVIDERS: ATTEND Registered Nurse Psychiatric/Mental Health
DX: Z79.899 Other long term (current) drug therapy (principal)

== ENCOUNTER 2023-07-18 13:43 | Emergency (ER) | payer OTHER ==
[~2023-07-18] VITALS: Ht 172.7 cm; Wt 101.6 kg
[~2023-07-18 13:43] MED LIST changes: +BUPR-71; +LITH150C; +LUMA21CA
[2023-07-18] MEDS ORDERED: OLAN2.5T25 PO (13:54)
[2023-07-18] MEDS ORDERED: BUPR15TA PO (13:54)
[2023-07-18] MEDS ORDERED: OSTE1TAB2 PO (13:54)
[2023-07-18 15:22] VITALS: BP 132/68; TEMP 98.9; O2SAT 96
[2023-07-18] MEDS ORDERED: AMOX875T2 PO (15:24)
[2023-07-18] MEDS: AUGMENTIN 875 MG TAB PO ONE (15:40)
== END 2023-07-18 16:10 | disposition home or self-care (01) ==
LOC: M ED 13:43
DX: K04.7 Periapical abscess without sinus (principal); F17.210 Nicotine dependence, cigarettes, uncomplicated; Z88.8 Allergy status to other drugs, medicaments and biological substances; Z79.2 Long term (current) use of antibiotics; Z79.899 Other long term (current) drug therapy

== ENCOUNTER 2023-08-19 19:08 | Emergency (ER) | payer OTHER ==
[~2023-08-19] VITALS: Ht 172.7 cm; Wt 103.0 kg
[~2023-08-19 19:08] MED LIST changes: +BUPR15TA PO; +OLAN2.5T25 PO; +OSTE1TAB2 PO
[2023-08-19] MEDS ORDERED: METF500T13 PO (19:33)
[2023-08-19] MEDS ORDERED: LUMA42CA PO (19:33)
[2023-08-19 21:32] VITALS: BP 118/58; TEMP 98.4; O2SAT 96
== END 2023-08-19 21:40 | disposition left against medical advice (07) ==
LOC: M ED 19:08 → EDBD 19:08 → M ED 21:40
DX: Z53.21 Procedure and treatment not carried out due to patient leaving prior to being seen by health care provider (principal)

== ENCOUNTER → 2023-12-27 | Outpatient (REF) | payer OTHER ==
[~2023-12-27] MED LIST changes: +LUMA42CA PO; +METF500T13 PO
[2023-12-27 12:08] LABS: APPEARANCE, URINE HAZY (CLEAR); BACTERIA, URINE AUTO NEGATIVE (NEGATIVE); BILIRUBIN, URINE AUTO 1+ (NEGATIVE); BLOOD, URINE BLOOD NEGATIVE (NEGATIVE); COLOR, URINE AMBER (YELLOW); GLUCOSE, URINE (UA) AUTO NEGATIVE (NEGATIVE); KETONE, URINE AUTO TRACE mg/dL (NEGATIVE); LEUKOCYTE ESTERASE, URINE AUTO 1+ (NEGATIVE); MUCUS, URINE SMALL (NEGATIVE); NITRITE, URINE AUTO NEGATIVE (NEGATIVE); PROTEIN, URINE AUTO NEGATIVE (NEGATIVE); RBC, URINE AUTO 2 /HPF (0-3); SPECIFIC GRAVITY URINE AUTO 1.019 (1.002-1.035); SQUAMOUS EPITHELIAL CELL UR AU 9 /HPF (0-6); WBC, URINE AUTO 4 /HPF (0-3)
== END ==
LOC: M LAB REF 11:16
PROVIDERS: ATTEND Nurse Practitioner Family
DX: R32 Unspecified urinary incontinence (principal)

== ENCOUNTER → 2023-12-27 | Outpatient (REF) | payer OTHER ==
[2023-12-27 18:28] LABS: BASO # 0.1 10^3/uL (0.0-0.2); BASO % 0.5 % (0.0-1.0); EOS # 0.8 10^3/uL (0.0-0.5); EOS % 7.9 % (0.0-3.0); HEMATOCRIT 46.3 % (36.0-47.0); HEMOGLOBIN 14.9 g/dl (12.0-15.5); LYMPH # 2.2 10^3/uL (1.5-5.0); LYMPH % 21.2 % (24.0-44.0); MEAN CORPUSCULAR HEMOGLOBIN 30.2 pg (27.0-33.0); MEAN CORPUSCULAR HGB CONC 32.2 g/dl (32.0-36.5); MEAN CORPUSCULAR VOLUME 93.7 fl (80.0-96.0); MONO # 0.7 10^3/uL (0.0-0.8); MONO % 6.7 % (2.0-8.0); NEUTROPHILS # 6.5 10^3/uL (1.5-8.5); PLATELET COUNT, AUTOMATED 374 10^3/uL (150-450); RED BLOOD COUNT 4.94 10^6/uL (4.00-5.40); WHITE BLOOD COUNT 10.3 10^3/uL (4.0-10.0)
[2023-12-27 18:43] LABS: ALBUMIN 3.8 G/DL (3.2-5.2); BILIRUBIN,DIRECT 0.1 MG/DL (<0.4); BILIRUBIN,TOTAL 0.4 MG/DL (0.3-1.2); CALCIUM LEVEL 10.5 MG/DL (8.5-10.1); CREATININE FOR GFR 1.11 MG/DL (0.55-1.30); GLOMERULAR FILTRATION RATE 53.6 (>51); POTASSIUM SERUM 5.6 MMOL/L (3.5-5.1); THYROID STIMULATING HORMONE 7.342 uIU/ML (0.55-4.78); TOTAL PROTEIN 7.1 G/DL (5.7-8.2)
[2023-12-27 19:08] LABS: HEMOGLOBIN A1c 4.9 % (4.0-6.0)
[2023-12-27 23:39] LABS: CHOLESTEROL RISK RATIO 5.68 (<5); LDL CHOLESTEROL 199.2 MG/DL (<100)
== END ==
LOC: M LAB REF 16:38
PROVIDERS: ATTEND Nurse Practitioner Family
DX: R32 Unspecified urinary incontinence (principal); Z68.33 Body mass index [BMI] 33.0-33.9, adult; E78.5 Hyperlipidemia, unspecified; E66.9 Obesity, unspecified

== ENCOUNTER → 2024-02-11 | Outpatient (CLI) | payer OTHER ==
[~2024-02-11] MED LIST changes: +GABA-1172 PO; -GABA-282 PO; -OLAN15TA13 PO; +OLAN15TA69 PO; -OLAN2.5T25 PO; +OLAN2.5T53 PO; -ROSU20TA61 PO; +ROSU20TA86 PO
== END ==
LOC: M LAB 09:43
PROVIDERS: ATTEND Registered Nurse Psychiatric/Mental Health
DX: Z71.89 Other specified counseling (principal)

== ENCOUNTER 2024-02-17 09:08 | Emergency (ER) | payer OTHER ==
[~2024-02-17] VITALS: Ht 172.7 cm; Wt 106.8 kg
[2024-02-17 10:51] LABS: BASO % 0.3 % (0.0-1.0); EOS # 3.1 10^3/uL (0.0-0.5); HEMATOCRIT 40.2 % (36.0-47.0); HEMOGLOBIN 12.6 g/dl (12.0-15.5); LYMPH # 1.4 10^3/uL (1.5-5.0); LYMPH % 9.2 % (24.0-44.0); MEAN CORPUSCULAR HEMOGLOBIN 30.7 pg (27.0-33.0); MEAN CORPUSCULAR HGB CONC 31.3 g/dl (32.0-36.5); MONO # 0.9 10^3/uL (0.0-0.8); MONO % 5.8 % (2.0-8.0); NEUTROPHILS # 9.2 10^3/uL (1.5-8.5); NEUTROPHILS % 62.6 % (36.0-66.0); PLATELET COUNT, AUTOMATED 378 10^3/uL (150-450); WHITE BLOOD COUNT 14.7 10^3/uL (4.0-10.0)
[2024-02-17 11:14] LABS: ALBUMIN 3.1 G/DL (3.2-5.2); ALKALINE PHOSPHATASE 113 U/L (35-104); ALT/SGPT 14 U/L (7.0-40); AST/SGOT 14 U/L (<34); BILIRUBIN,TOTAL 0.3 MG/DL (0.3-1.2); BLOOD UREA NITROGEN 9 MG/DL (9-23); CALCIUM LEVEL 10.2 MG/DL (8.5-10.1); CARBON DIOXIDE LEVEL 24 MMOL/L (20-31); CHLORIDE LEVEL 109 MMOL/L (98-107); GLOMERULAR FILTRATION RATE 54.1 (>51); GLUCOSE, FASTING 77 MG/DL (60-100); POTASSIUM SERUM 4.4 MMOL/L (3.5-5.1); SODIUM LEVEL 137 MMOL/L (136-145); TOTAL PROTEIN 6.3 G/DL (5.7-8.2)
[2024-02-17 11:16] LABS: FREE T4 1.05 NG/DL (0.89-1.76); THYROID STIMULATING HORMONE 13.686 uIU/ML (0.55-4.78)
[2024-02-17 11:21] LABS: LITHIUM LEVEL 1.66 MMOL/L (1.0-1.20)
[2024-02-17 11:57] LABS: EOS % 20.9 % (0.0-3.0)
[2024-02-17 12:06] LABS: ERYTHROCYTE SEDIMENTATION RATE 28 mm/hr (0-30)
[2024-02-17 12:13] LABS: CK-MB VALUE MASS < 1.0 NG/ML (<3.6)
[2024-02-17 12:18] LABS: CPK CREATINE PHOSPHOKINASE 25 U/L (34-145)
[2024-02-17 12:53] LABS: CK-MB VALUE MASS < 1.0 NG/ML (<3.6)
[2024-02-17] MEDS: methylPREDNISolone 125MG 2ML VIAL IV ONE (12:54)
[2024-02-17] MEDS: CETIRIZINE (ZyrTEC) 10 MG TAB PO ONE (12:54)
[2024-02-17 12:55] LABS: CPK CREATINE PHOSPHOKINASE 26 U/L (34-145); MB/CK RELATIVE INDEX 3.84 (< OR =4)
[2024-02-17] MEDS ORDERED: ASPI81TA26 PO (14:20)
[2024-02-17] MEDS ORDERED: PRED20TA PO (14:20)
[2024-02-17] MEDS ORDERED: CETI10CH PO (14:20)
[2024-02-17 14:49] VITALS: BP 123/56; TEMP 97.8; O2SAT 95
== END 2024-02-17 14:52 | disposition home or self-care (01) ==
LOC: M ED 09:08
DX: L30.9 Dermatitis, unspecified (principal); R78.89 Finding of other specified substances, not normally found in blood; D72.10 Eosinophilia, unspecified; Z76.0 Encounter for issue of repeat prescription; I10 Essential (primary) hypertension; F25.9 Schizoaffective disorder, unspecified; J45.909 Unspecified asthma, uncomplicated; R00.1 Bradycardia, unspecified; I44.4 Left anterior fascicular block; E11.9 Type 2 diabetes mellitus without complications; F17.200 Nicotine dependence, unspecified, uncomplicated; Z88.1 Allergy status to other antibiotic agents; Z88.8 Allergy status to other drugs, medicaments and biological substances; Z86.79 Personal history of other diseases of the circulatory system; Z79.82 Long term (current) use of aspirin; Z79.4 Long term (current) use of insulin; Z79.52 Long term (current) use of systemic steroids; Z79.899 Other long term (current) drug therapy
CPT/HCPCS: 80053; 80178; 82550; 82553; 83735; 84439; 84443; 84484; 85025; 85652; 86140; 93005; 93041; 96374; 99285; J2919

== ENCOUNTER → 2024-03-10 | Outpatient (CLI) | payer OTHER ==
[~2024-03-10] MED LIST changes: +CETI10CH PO; +PRED20TA PO
== END ==
LOC: M LAB 10:33
PROVIDERS: ATTEND Registered Nurse Psychiatric/Mental Health
DX: Z79.899 Other long term (current) drug therapy (principal)

== ENCOUNTER → 2024-04-20 | Outpatient (REF) | payer OTHER ==
[2024-04-20 13:46] LABS: ALBUMIN 3.2 G/DL (3.2-5.2); ALKALINE PHOSPHATASE 110 U/L (35-104); ALT/SGPT 13 U/L (7.0-40); AST/SGOT 9 U/L (<34); BILIRUBIN,DIRECT < 0.1 MG/DL (<0.4); BILIRUBIN,TOTAL 0.3 MG/DL (0.3-1.2); CHOLESTEROL LEVEL 240 MG/DL (<200); CHOLESTEROL RISK RATIO 3.09 (<5); HDL CHOLESTEROL 77.5 MG/DL (>40); LDL CHOLESTEROL 147.1 MG/DL (<100); NON-HDL-C 162.5 MG/DL; TOTAL PROTEIN 6.4 G/DL (5.7-8.2); TRIGLYCERIDES LEVEL 77 MG/DL (<150)
[2024-04-20 13:50] LABS: THYROID STIMULATING HORMONE 8.405 uIU/ML (0.55-4.78)
[2024-04-21 13:53] LABS: ANA SCREEN, IFA NEGATIVE (NEGATIVE)
== END ==
LOC: M LAB REF 12:49
PROVIDERS: ATTEND Nurse Practitioner Family
DX: L30.9 Dermatitis, unspecified (principal); R89.1 Abnormal level of hormones in specimens from other organs, systems and tissues; E78.5 Hyperlipidemia, unspecified

== ENCOUNTER → 2024-04-22 | Outpatient (REF) | payer OTHER | LOC: M SFHCADAM 13:25 | PROVIDERS: ATTEND Physician Assistant | DX: R21 Rash and other nonspecific skin eruption (principal) ==

== ENCOUNTER → 2024-05-21 | Outpatient (CLI) | payer OTHER | LOC: M CARPUL 08:27 | PROVIDERS: ATTEND Nurse Practitioner Family | DX: R01.1 Cardiac murmur, unspecified (principal) ==

== ENCOUNTER → 2024-05-27 | Outpatient (CLI) | payer OTHER | LOC: M RAD 10:16 | PROVIDERS: ATTEND Nurse Practitioner Family | DX: F17.210 Nicotine dependence, cigarettes, uncomplicated (principal); J43.9 Emphysema, unspecified ==

== ENCOUNTER → 2024-06-30 | Outpatient (CLI) | payer OTHER ==
[~2024-06-30] MED LIST changes: +ADVA1AER8; +ALBU8.5H; +ATEN25TA PO; +ATOR40TA75; +LURA20TA; +NITR0.4S14
== END ==
LOC: M EKG 10:20
PROVIDERS: ATTEND Registered Nurse
DX: R00.2 Palpitations (principal)

== ENCOUNTER 2024-07-01 12:15 | Emergency (ER) | payer OTHER ==
[~2024-07-01] VITALS: Ht 172.7 cm; Wt 98.1 kg
[~2024-07-01 12:15] MED LIST changes: -ADVA1AER8; -ALBU8.5H; -ATEN25TA PO; -ATOR40TA75; -LURA20TA; -NITR0.4S14
[2024-07-01 13:03] LABS: HEMATOCRIT 44.8 % (36.0-47.0); HEMOGLOBIN 14.6 g/dl (12.0-15.5); MEAN CORPUSCULAR HEMOGLOBIN 30.5 pg (27.0-33.0); MEAN CORPUSCULAR HGB CONC 32.6 g/dl (32.0-36.5); MEAN CORPUSCULAR VOLUME 93.7 fl (80.0-96.0); PLATELET COUNT, AUTOMATED 356 10^3/uL (150-450); RED BLOOD COUNT 4.78 10^6/uL (4.00-5.40); WHITE BLOOD COUNT 7.7 10^3/uL (4.0-10.0)
[2024-07-01] MEDS ORDERED: LURA20TA (13:24)
[2024-07-01] MEDS ORDERED: NITR0.4S14 (13:24)
[2024-07-01] MEDS ORDERED: ATEN25TA PO (13:24)
[2024-07-01] MEDS ORDERED: ATOR40TA75 (13:24)
[2024-07-01] MEDS ORDERED: ADVA1AER8 (13:24)
[2024-07-01] MEDS ORDERED: ALBU8.5H (13:24)
[2024-07-01 13:34] LABS: ETHYL ALCOHOL (ETHANOL) < 0.003 % (0.000-0.010)
[2024-07-01 13:35] LABS: SALICYLATE LEVEL < 3.0 MG/DL (<30)
[2024-07-01 13:36] LABS: ALBUMIN 3.4 G/DL (3.2-5.2); ALKALINE PHOSPHATASE 116 U/L (35-104); ALT/SGPT 13 U/L (7.0-40); AST/SGOT 11 U/L (<34); BILIRUBIN,DIRECT < 0.1 MG/DL (<0.4); BILIRUBIN,TOTAL 0.3 MG/DL (0.3-1.2); BLOOD UREA NITROGEN 15 MG/DL (9-23); CALCIUM LEVEL 9.7 MG/DL (8.5-10.1); CARBON DIOXIDE LEVEL 23 MMOL/L (20-31); CHLORIDE LEVEL 110 MMOL/L (98-107); CREATININE FOR GFR 0.96 MG/DL (0.55-1.30); GLOMERULAR FILTRATION RATE > 60.0 (>51); GLUCOSE, FASTING 99 MG/DL (60-100); POTASSIUM SERUM 4.4 MMOL/L (3.5-5.1); SODIUM LEVEL 143 MMOL/L (136-145); TOTAL PROTEIN 6.5 G/DL (5.7-8.2)
[2024-07-01 13:37] LABS: THYROID STIMULATING HORMONE 3.325 uIU/ML (0.55-4.78)
[2024-07-01 14:23] LABS: AMPHETAMINES LEVEL URINE NEGATIVE (NEGATIVE); BARBITURATES URINE NEGATIVE (NEGATIVE); BENZODIAZEPINES URINE NEGATIVE (NEGATIVE); CANNABINOIDS URINE NEGATIVE (NEGATIVE); COCAINE METABOLITE URINE NEGATIVE (NEGATIVE); METHADONE URINE NEGATIVE (NEGATIVE); OPIATES URINE NEGATIVE (NEGATIVE); PHENCYCLIDINE URINE NEGATIVE (NEGATIVE)
[2024-07-01 18:10] VITALS: BP 136/63; TEMP 98.5; O2SAT 99
== END 2024-07-01 18:11 | disposition home or self-care (01) ==
LOC: M ED 12:15
DX: F20.9 Schizophrenia, unspecified (principal); I10 Essential (primary) hypertension; E78.5 Hyperlipidemia, unspecified; K57.30 Diverticulosis of large intestine without perforation or abscess without bleeding; F17.200 Nicotine dependence, unspecified, uncomplicated; F19.10 Other psychoactive substance abuse, uncomplicated; F10.10 Alcohol abuse, uncomplicated; Z88.1 Allergy status to other antibiotic agents; Z88.8 Allergy status to other drugs, medicaments and biological substances; Z79.52 Long term (current) use of systemic steroids; Z79.82 Long term (current) use of aspirin; Z79.899 Other long term (current) drug therapy

== ENCOUNTER 2024-07-07 18:21 | Emergency (ER) | payer OTHER ==
[~2024-07-07] VITALS: Ht 172.7 cm; Wt 97.1 kg
[~2024-07-07 18:21] MED LIST changes: +ADVA1AER8; +ALBU8.5H; +ATEN25TA PO; +ATOR40TA75; +LURA20TA; +NITR0.4S14
[2024-07-07 19:17] LABS: HEMATOCRIT 42.8 % (36.0-47.0); MEAN CORPUSCULAR HEMOGLOBIN 30.5 pg (27.0-33.0); MEAN CORPUSCULAR HGB CONC 32.7 g/dl (32.0-36.5); MEAN CORPUSCULAR VOLUME 93.2 fl (80.0-96.0); PLATELET COUNT, AUTOMATED 354 10^3/uL (150-450); RED BLOOD COUNT 4.59 10^6/uL (4.00-5.40)
[2024-07-07 19:48] LABS: AMPHETAMINES LEVEL URINE NEGATIVE (NEGATIVE); BARBITURATES URINE NEGATIVE (NEGATIVE); BENZODIAZEPINES URINE NEGATIVE (NEGATIVE); CANNABINOIDS URINE NEGATIVE (NEGATIVE); COCAINE METABOLITE URINE NEGATIVE (NEGATIVE); METHADONE URINE NEGATIVE (NEGATIVE); OPIATES URINE NEGATIVE (NEGATIVE)
[2024-07-07 19:51] LABS: ETHYL ALCOHOL (ETHANOL) < 0.003 % (0.000-0.010); SALICYLATE LEVEL < 3.0 MG/DL (<30)
[2024-07-07 19:52] LABS: ALBUMIN 3.6 G/DL (3.2-5.2); ALKALINE PHOSPHATASE 114 U/L (35-104); ALT/SGPT 22 U/L (7.0-40); AST/SGOT 37 U/L (<34); BILIRUBIN,DIRECT 0.2 MG/DL (<0.4); BILIRUBIN,TOTAL 0.6 MG/DL (0.3-1.2); BLOOD UREA NITROGEN 14 MG/DL (9-23); CALCIUM LEVEL 9.9 MG/DL (8.5-10.1); CARBON DIOXIDE LEVEL 24 MMOL/L (20-31); CHLORIDE LEVEL 112 MMOL/L (98-107); GLOMERULAR FILTRATION RATE > 60.0 (>51); GLUCOSE, FASTING 95 MG/DL (60-100); POTASSIUM SERUM 4.2 MMOL/L (3.5-5.1); SODIUM LEVEL 143 MMOL/L (136-145); TOTAL PROTEIN 6.7 G/DL (5.7-8.2)
[2024-07-07 19:54] LABS: THYROID STIMULATING HORMONE 3.144 uIU/ML (0.55-4.78)
[2024-07-07 20:02] LABS: PHENCYCLIDINE URINE NEGATIVE (NEGATIVE)
[2024-07-07 21:12] VITALS: BP 126/58; TEMP 97.8; O2SAT 99
== END 2024-07-07 21:18 | disposition home or self-care (01) ==
LOC: M ED 18:21
DX: F20.9 Schizophrenia, unspecified (principal); I10 Essential (primary) hypertension; E78.5 Hyperlipidemia, unspecified; F17.200 Nicotine dependence, unspecified, uncomplicated; Z88.1 Allergy status to other antibiotic agents; Z88.8 Allergy status to other drugs, medicaments and biological substances; Z79.82 Long term (current) use of aspirin; Z79.52 Long term (current) use of systemic steroids; Z79.899 Other long term (current) drug therapy; Z79.02 Long term (current) use of antithrombotics/antiplatelets

== ENCOUNTER 2024-07-08 06:56 | Emergency (ER) | payer OTHER ==
[~2024-07-08] VITALS: Ht 172.7 cm; Wt 99.5 kg
[2024-07-08 07:03] VITALS: TEMP 97.2
[2024-07-08 10:47] VITALS: BP 153/83; O2SAT 97
== END 2024-07-08 10:48 | disposition home or self-care (01) ==
LOC: M ED 06:56
DX: F20.9 Schizophrenia, unspecified (principal); I10 Essential (primary) hypertension; K21.9 Gastro-esophageal reflux disease without esophagitis; E78.5 Hyperlipidemia, unspecified; F17.200 Nicotine dependence, unspecified, uncomplicated; Z79.82 Long term (current) use of aspirin; Z79.52 Long term (current) use of systemic steroids; Z79.02 Long term (current) use of antithrombotics/antiplatelets; Z79.899 Other long term (current) drug therapy; Z88.1 Allergy status to other antibiotic agents; Z88.8 Allergy status to other drugs, medicaments and biological substances; Z86.79 Personal history of other diseases of the circulatory system

== ENCOUNTER → 2024-07-10 | Outpatient (REF) | payer OTHER ==
[2024-07-10 14:13] LABS: FREE T4 1.23 NG/DL (0.89-1.76)
[2024-07-10 14:14] LABS: THYROID STIMULATING HORMONE 2.347 uIU/ML (0.55-4.78)
== END ==
LOC: M LAB REF 12:01
PROVIDERS: ATTEND Nurse Practitioner Family
DX: R89.1 Abnormal level of hormones in specimens from other organs, systems and tissues (principal)

== ENCOUNTER → 2024-07-20 | Outpatient (REF) | payer OTHER | LOC: M LAB REF 12:08 | PROVIDERS: ATTEND Nurse Practitioner Family | DX: J39.2 Other diseases of pharynx (principal) ==

== ENCOUNTER → 2024-12-11 | Outpatient (CLI) | payer OTHER ==
[~2024-12-11] MED LIST changes: -LUMA42CA PO; +LUMA42CA4 PO
[2024-12-11 09:55] LABS: BASO # 0.1 10^3/uL (0.0-0.2); BASO % 0.6 % (0.0-1.0); EOS # 0.6 10^3/uL (0.0-0.5); EOS % 6.9 % (0.0-3.0); LYMPH # 1.6 10^3/uL (1.5-5.0); LYMPH % 20.0 % (24.0-44.0); MONO # 0.6 10^3/uL (0.0-0.8); MONO % 7.2 % (2.0-8.0); NEUTROPHILS # 5.2 10^3/uL (1.5-8.5); NEUTROPHILS % 64.9 % (36.0-66.0); PLATELET COUNT, AUTOMATED 368 10^3/uL (150-450)
[2024-12-11 10:28] LABS: ESTIMATED AVERAGE GLUCOSE 108.0 MG/DL (60-110)
[2024-12-11 10:29] LABS: ALT/SGPT 12.0 U/L (7.0-40); AST/SGOT 14.0 U/L (<34); CALCIUM LEVEL 10.1 MG/DL (8.3-10.6); CARBON DIOXIDE LEVEL 27.0 MMOL/L (20-31); CHLORIDE LEVEL 105.0 MMOL/L (98-107); CHOLESTEROL LEVEL 204.0 MG/DL (<200); CHOLESTEROL RISK RATIO 4.46 (<5); CREATININE FOR GFR 1.05 MG/DL (0.55-1.30); GLOMERULAR FILTRATION RATE 60.8 (>45); LDL CHOLESTEROL 129.9 MG/DL (<100); NON-HDL-C 158.3 MG/DL; POTASSIUM SERUM 4.6 MMOL/L (3.5-5.1); SODIUM LEVEL 140.0 MMOL/L (136-145); TRIGLYCERIDES LEVEL 142.0 MG/DL (<150)
[2024-12-11 10:30] LABS: TOTAL 25(OH) VITAMIN D 35.3 NG/ML (20.0-100.0)
== END ==
LOC: M LAB 08:34
PROVIDERS: ATTEND Registered Nurse Psychiatric/Mental Health
DX: Z79.899 Other long term (current) drug therapy (principal)

== ENCOUNTER 2025-01-17 02:45 | Emergency (ER) | payer OTHER ==
[~2025-01-17] VITALS: Ht 172.7 cm; Wt 95.4 kg
[2025-01-17 02:47] VITALS: BP 141/67; TEMP 97.8; O2SAT 97
[2025-01-17] MEDS ORDERED: HALO5TAB33 PO (02:58)
== END 2025-01-17 06:20 | disposition left against medical advice (07) ==
LOC: M ED 02:45
DX: Z53.21 Procedure and treatment not carried out due to patient leaving prior to being seen by health care provider (principal)

== ENCOUNTER 2025-03-29 06:47 | Day surgery (SDC) | payer OTHER ==
[~2025-03-29] VITALS: Ht 172.7 cm; Wt 98.9 kg
[~2025-03-29 06:47] MED LIST changes: +ADVA1AER8 INH; -ALBU8.5H; +ALBU8.5H INH; +ATOR40TA75 PO; +BUPR150T12 PO; +LATU20TA PO; -NITR0.4S14; +OLAN20TA74 PO; +dexAMETHasone 4 MG/ML 1 ML VIAL IV ONE
[2025-03-29] MEDS ORDERED: LIDOCAINE 2% 100 MG/5 ML SDV (FOR ANES.) As Ordered ONE (07:01)
[2025-03-29] MEDS ORDERED: ONDANSETRON 4MG/2ML VIAL As Ordered ONE (07:01)
[2025-03-29] MEDS ORDERED: ROCURONIUM BROMIDE 50MG/5ML VIAL As Ordered ONE (07:01)
[2025-03-29] MEDS ORDERED: SUGAMMADEX SODIUM 500 MG/5 ML VIAL As Ordered ONE (07:01)
[2025-03-29] MEDS ORDERED: dexAMETHasone 4 MG/ML 1 ML VIAL As Ordered ONE (07:02)
[2025-03-29] MEDS ORDERED: MIDAZOLAM INJ 2 MG/2 ML VIAL As Ordered ONE (07:07)
[2025-03-29] MEDS ORDERED: OXYMETAZOLINE 0.05% NASAL SPRAY As Ordered ONE (07:08)
[2025-03-29] MEDS ORDERED: LR 1,000 ML IV SCH (07:15)
[2025-03-29] MEDS ORDERED: ETOMIDATE 20 MG/10 ML VIAL As Ordered ONE (08:35)
[2025-03-29] MEDS: AMPICILLIN SOD/SULBACTAM SOD 3 GM in D5W MINI-BAG 100 ML IV ONE (08:55)
[2025-03-29] MEDS ORDERED: ACETAMINOPHEN 1000MG/100ML IV BAG As Ordered ONE (09:05)
[2025-03-29] MEDS: CHLORHEXIDINE GLUCONATE 0.12% 15 ML UDC As Ordered ONE (09:23)
[2025-03-29] MEDS ORDERED: DIPH50CA31 PO (09:46)
[2025-03-29] MEDS ORDERED: MORPHINE 2 MG/ML 1 ML VIAL IV PRN (09:55)
[2025-03-29] MEDS ORDERED: HYDROMORPHONE HCL 0.5 MG/0.5 ML SYRINGE IV PRN (09:55)
[2025-03-29 11:08] VITALS: BP 156/72; TEMP 97.5; O2SAT 97
== END 2025-03-29 11:56 | disposition home or self-care (01) ==
LOC: M SDC 06:47
PROVIDERS: ATTEND Dentist
DX: K02.9 Dental caries, unspecified (principal); M25.18 Fistula, other specified site; I25.2 Old myocardial infarction; Z95.5 Presence of coronary angioplasty implant and graft; F25.1 Schizoaffective disorder, depressive type; F17.210 Nicotine dependence, cigarettes, uncomplicated; Z88.8 Allergy status to other drugs, medicaments and biological substances; Z88.1 Allergy status to other antibiotic agents; Z79.899 Other long term (current) drug therapy; Z79.82 Long term (current) use of aspirin; Z79.84 Long term (current) use of oral hypoglycemic drugs
CPT/HCPCS: 88300; D7140; D7210; D7260; D7310; J0131; J0295; J0666; J0670; J1100; J2250; J2405; J3010